=== PATIENT | female | born 1960 | race Caucasian/White ===

== ENCOUNTER 2017-12-15 10:55 | Emergency (ER) | payer SELFPAY ==
[2017-12-15] MEDS ORDERED: LIORESAL PO ONE (13:14)
[2017-12-15] MEDS ORDERED: COZAAR PO ONE (13:15)
[2017-12-15 13:52] LABS: Basophils # (Auto) 0.1 K/mm3 (0.0-0.1); Basophils % (Auto) 0.5 % (0.0-1.8); Eosinophils % (Auto) 0.1 % (0.0-4.3); Hematocrit 38.3 % (30.3-42.9); Hemoglobin 13.1 gm/dl (10.1-14.3); Lymphocytes # (Auto) 1.6 K/mm3 (1.2-5.4); Lymphocytes % (Auto) 14.2 % (13.4-35.0); Mean Corpuscular HGB Conc 34 % (30-34); Mean Corpuscular Hemoglobin 27 pg (28-32); Mean Corpuscular Volume 80 fl (79-97); Monocytes # (Auto) 0.5 K/mm3 (0.0-0.8); Monocytes % (Auto) 4.7 % (0.0-7.3); Platelet Count 236 K/mm3 (140-440); Red Blood Count 4.78 M/mm3 (3.65-5.03); Red Cell Distribution Width 14.7 % (13.2-15.2)
[2017-12-15 14:00] LABS: Alanine Aminotransferase 11 units/L (7-56); Albumin 4.2 g/dL (3.9-5); BUN/Creatinine Ratio 20; Blood Urea Nitrogen 10 mg/dL (7-17); Calcium 9.9 mg/dL (8.4-10.2); Hemolysis Index 10
[2017-12-15] MEDS ORDERED: K-DUR PO ONE (14:08)
--- NOTE | 2017-12-15 15:21 | Emergency Department Report ---
HPI - General Chief Complaint: Pain General Time Seen by Provider: 12/15/17 12:52 - HPI HPI: 57-year-old [place] female presents to the emergency department with her daughter, whom she lives with, with a complaint of acute on chronic muscle spasms and contractures. The patient moved here from [place] a few months ago, in July, and therefore has been away from her primary care physician's and does not currently have any insurance. The patient has been being worked up over the past 1-2 years regarding some type of progressively worsening neurological and/or musculoskeletal disorder. They say that one of the possible diagnosis is multiple sclerosis. The patient also had 2 different nerve conduction studies done in [place] prior to moving to the [facility] that she said showed appropriate conduction. The patient also has a history of hypertension. The patient is nonambulatory at baseline and has been this way over the past year. She usually is on 2 different blood pressure medications and has been out of these meds and took the last of these 2 medications today, losartan and atenolol. The main reason for the patient's visit today is that she is also out of her baclofen, Neurontin and clonazepam. Without these medications, the patient gets very stiff, has muscle spasms and contractures, and it also keeps her from being able to eat and help to take care of herself. She denies any fever, chest pain, shortness of breath. ED Past Medical Hx - Past Medical History Previous Medical History?: Yes Hx Hypertension: Yes Additional medical history: MS - Surgical History Past Surgical History?: No - Social History Smoking Status: Never Smoker - Medications Home Medications: Home Medications Medication Instructions Recorded Confirmed Last Taken Type Atenolol [Tenormin] 25 mg PO DAILY #30 tab 12/15/17 Unknown Rx Baclofen 20 mg PO QHS #20 tablet 12/15/17 Unknown Rx Baclofen [Lioresal] 10 mg PO BID #40 tab 12/15/17 Unknown Rx Losartan [Cozaar] 50 mg PO BID #30 tablet 12/15/17 Unknown Rx clonazePAM [KlonoPIN] 0.5 mg PO BID PRN #40 tab 12/15/17 Unknown Rx ED Review of Systems ROS: Stated complaint: MUSCLE SPASMS Other details as noted in HPI Comment: All other systems reviewed and negative Constitutional: denies: chills, fever Eyes: denies: eye pain, eye discharge, vision change ENT: denies: ear pain, throat pain Respiratory: denies: cough, shortness of breath, wheezing Cardiovascular: denies: chest pain, palpitations Gastrointestinal: denies: abdominal pain, nausea, diarrhea Genitourinary: denies: urgency, dysuria, discharge Musculoskeletal: myalgia. denies: joint swelling Skin: denies: rash, lesions Neurological: denies: headache, confusion Physical Exam - Physical Exam Vital Signs: Vital Signs 12/15/17 11:30 Temperature 97.5 F L Pulse Rate 87 Blood Pressure 132/76 O2 Sat by Pulse 96 Oximetry Physical Exam: GENERAL: The patient is well-developed well-nourished. HENT: Normocephalic. Atraumatic. Patient has moist mucous membranes. EYES: Extraocular motions are intact. Pupils equal reactive to light bilaterally. NECK: Supple. Trachea is midline. CHEST/LUNGS: Clear to auscultation. There is no respiratory distress noted. HEART/CARDIOVASCULAR: Regular. There is no tachycardia. There is no murmur. ABDOMEN: Abdomen is soft, nontender. Patient has normal bowel sounds. There is no abdominal distention. SKIN: Skin is warm and dry. NEURO: The patient is awake, alert, and oriented. The patient is cooperative. There is chronic lower extremity weakness as the patient is chronically nonambulatory. The patient has normal speech. No facial asymmetry. No upper extremity drift. MUSCULOSKELETAL: There is no tenderness. Patient has some flexion and contractures of the bilateral feet. There is no evidence of acute injury. ED Course Vital Signs 12/15/17 11:30 Temperature 97.5 F L Pulse Rate 87 Blood Pressure 132/76 O2 Sat by Pulse 96 Oximetry ED Medical Decision Making - Lab Data Result diagrams: 12/15/17 13:26 12/15/17 13:26 - Medical Decision Making Patient has a 1-2 year history of some type of progressively worsening condition causing weakness and it also appears to cause chronic muscle spasms and contractures. The patient says that she has been being worked up for multiple sclerosis but the workup has not been completed and she moved from [place] to [place]. She had insurance and [place] but does not have it yet here and therefore does not have a primary care physician or neurologist. None of the weakness is new and there are no new deficits. The main reason for her presenting to the emergency department is because of muscle spasms and contractures. In [place], the patient is on baclofen and clonazepam and sometimes gabapentin for these issues. When she is on the medication she is much more functional and without the medication sometimes the spasms and contractures can also involve the hands and make it difficult for her to help with her activities of daily living. She is not at this point when she arrives to the emergency department but does have some issues regarding her feet which do appear flexed and slightly contracted. To me, her mental status appears appropriate and she is answering questions appropriately without any slurred speech. Patient's labs were unremarkable including no signs of any infection, electrolyte abnormalities other than mild hypokalemia, no renal insufficiency or glucose abnormalities and she has a normal CK level. She was given a dose of baclofen and clonazepam and reevaluated about one hour later. The patient appears to have some improvement in the spasms and contractures of her feet and says she is feeling much better. Her daughter, who is bedside, also says that she appears to show improved movement. Patient's blood pressure has been reasonable in the emergency department but the patient did take her blood pressure medications, the last ones that she had available, this morning prior to presentation. I have agreed to write a few weeks worth of a prescription for the baclofen, clonazepam and her blood pressure medications. However with the patient and the daughter understand my hesitancy to restart all of these medications at once as it can cause some sedation and possible hypotension. They have agreed to buy a blood pressure cuff and keep a blood pressure log. They will be vigilant and monitoring her for any signs of increased sedation from these medications. However the patient did have baclofen and clonazepam here and tolerated it very well without any signs of any sedation or respiratory depression. The patient was given multiple primary care doctor clinics for follow-up. They have been encouraged to return to the emergency department immediately with any worsening of her symptoms or any acute distress. - Differential Diagnosis MS, ALS, myasthenia gravis, electrolyte abnormalities, hypoglycemia Critical Care Time: No Critical care attestation.: If time is entered above; I have spent that time in minutes in the direct care of this critically ill patient, excluding procedure time. ED Disposition Clinical Impression: Muscle spasm, Stiff joint, History of hypertension Disposition: DC-01 TO HOME OR SELFCARE Is pt being admited?: No Condition: Stable Instructions: Hypertension (ED), Muscle Spasm (ED) Additional Instructions: Please follow up with a primary care physician as soon as possible. I have also given a referral for a local neurologist, Dr. Gomez and, to follow up regarding your potential history of multiple sclerosis and/or for a neurological evaluation. Return to the emergency Department with any worsening of your symptoms or any acute distress. I have given you a prescription refill for your blood pressure medications. Keep a blood pressure log and buy a blood pressure cuff. Try and stay away from foods that are high in salt and caffeinated products to help with her blood pressure. The baclofen and clonazepam that you take for your muscle spasms and stiffness can be sedating and therefore you must be cautious when taking them as they can cause respiratory depression. You have been prescribed a medication that is sedating and therefore should not be taken prior to driving, working, and responsible for children and in no way should be mixed with alcohol of any quantity. Return to the emergency Department with any worsening of your symptoms or any acute distress. Prescriptions: Baclofen 20 mg PO QHS #20 tablet Atenolol [Tenormin] 25 mg PO DAILY #30 tab Baclofen [Lioresal] 10 mg PO BID #40 tab clonazePAM [KlonoPIN] 0.5 mg PO BID PRN #40 tab PRN Reason: Spasms Losartan [Cozaar] 50 mg PO BID #30 tablet Referrals: PRIMARY CARE, [Primary Care Provider] - 3-5 Days MAYRA GOMEZ MD [Staff Physician] - 3-5 Days [facility] [Outside] - 3-[address] [facility] [Outside] - 3-5 Days Time of Disposition: 15:28
[2017-12-15 16:34] VITALS: BP 107/74
== END 2017-12-15 16:32 | disposition home or self-care (01) ==
LOC: ED 10:55
DX: M62.838 Other muscle spasm (principal); M25.60 Stiffness of unspecified joint, not elsewhere classified; I10 Essential (primary) hypertension; G35 Multiple sclerosis
CPT/HCPCS: 36415; 80053; 82550; 83735; 85025; 99284

== ENCOUNTER 2019-05-03 13:36 | Emergency (ER) | payer MEDICARE, OTHER ==
--- NOTE | 2019-05-03 15:09 | Emergency Department Report ---
ED General Adult HPI - General Chief complaint: Weakness Stated complaint: FAILURE TO THRIVE Time Seen by Provider: 05/03/19 14:26 Source: EMS Mode of arrival: Stretcher Limitations: Language Barrier - History of Present Illness Initial comments: She presents to the ED via EMS as an APS case. The patient's mother has concern that the granddaughter is not taking care for well at home and contacted Adult Protective Services for further evaluation. The patient is not fluent Danish and a tag meter operator was used. She has no complaints and denies chest pain, shortness breath, or headache. Severity scale (0 -10): 0 Improves with: none Worsens with: none Associated Symptoms: denies other symptoms Treatments Prior to Arrival: none - Related Data Previous Rx's Medication Instructions Recorded Last Taken Type Atenolol [Tenormin] 25 mg PO DAILY #30 tab 12/15/17 Unknown Rx Baclofen 20 mg PO QHS #20 tablet 12/15/17 Unknown Rx Baclofen [Lioresal] 10 mg PO BID #40 tab 12/15/17 Unknown Rx Losartan [Cozaar] 50 mg PO BID #30 tablet 12/15/17 Unknown Rx clonazePAM [KlonoPIN] 0.5 mg PO BID PRN #40 tab 12/15/17 Unknown Rx Allergies Allergy/AdvReac Type Severity Reaction Status Date / Time No Known Allergies Allergy Unverified 12/15/17 11:51 ED Review of Systems ROS: Stated complaint: FAILURE TO THRIVE Other details as noted in HPI Comment: All other systems reviewed and negative Constitutional: denies: chills, fever Eyes: denies: eye pain, eye discharge, vision change ENT: denies: ear pain, throat pain Respiratory: denies: cough, shortness of breath, wheezing Cardiovascular: denies: chest pain, palpitations Endocrine: no symptoms reported Gastrointestinal: denies: abdominal pain, nausea, diarrhea Genitourinary: denies: urgency, dysuria, discharge Musculoskeletal: denies: back pain, joint swelling, arthralgia Skin: denies: rash, lesions Neurological: denies: headache, weakness, paresthesias Psychiatric: denies: anxiety, depression Hematological/Lymphatic: denies: easy bleeding, easy bruising ED Past Medical Hx - Past Medical History Previous Medical History?: Yes Hx Hypertension: Yes Additional medical history: MS - Surgical History Additional Surgical History: Unknown - Social History Smoking Status: Unknown if ever smoked - Medications Home Medications: Home Medications Medication Instructions Recorded Confirmed Last Taken Type Atenolol [Tenormin] 25 mg PO DAILY #30 tab 12/15/17 Unknown Rx Baclofen 20 mg PO QHS #20 tablet 12/15/17 Unknown Rx Baclofen [Lioresal] 10 mg PO BID #40 tab 12/15/17 Unknown Rx Losartan [Cozaar] 50 mg PO BID #30 tablet 12/15/17 Unknown Rx clonazePAM [KlonoPIN] 0.5 mg PO BID PRN #40 tab 12/15/17 Unknown Rx ED Physical Exam - General Limitations: Language Barrier General appearance: alert, in no apparent distress, other (thin) - Head Head exam: Present: atraumatic, normocephalic - Eye Eye exam: Present: normal appearance - ENT ENT exam: Present: mucous membranes moist - Neck Neck exam: Present: normal inspection - Respiratory Respiratory exam: Present: normal lung sounds bilaterally. Absent: respiratory distress - Cardiovascular Cardiovascular Exam: Present: regular rate, normal rhythm. Absent: systolic murmur, diastolic murmur, rubs, gallop - GI/Abdominal GI/Abdominal exam: Present: soft, normal bowel sounds. Absent: distended, tenderness - Extremities Exam Extremities exam: Present: normal inspection - Back Exam Back exam: Present: normal inspection - Neurological Exam Neurological exam: Present: alert, oriented X3, CN II-XII intact. Absent: motor sensory deficit - Psychiatric Psychiatric exam: Present: normal affect, normal mood - Skin Skin exam: Present: warm, dry, intact, normal color. Absent: rash ED Course Vital Signs 05/03/19 05/03/19 05/03/19 13:59 14:03 14:05 Temperature 98.7 F Pulse Rate 152 H 105 H Respiratory 19 Rate Blood Pressure Blood Pressure 198/131 86/56 [Left] O2 Sat by Pulse 99 99 Oximetry 05/03/19 05/03/19 05/03/19 14:15 14:26 14:27 Temperature Pulse Rate 90 Respiratory 16 16 Rate Blood Pressure 109/74 Blood Pressure 109/74 [Left] O2 Sat by Pulse 98 97 98 Oximetry 05/03/19 05/03/19 05/03/19 14:30 14:46 15:00 Temperature Pulse Rate 83 79 79 Respiratory 15 15 17 Rate Blood Pressure 90/58 92/56 113/69 Blood Pressure [Left] O2 Sat by Pulse 98 98 97 Oximetry 05/03/19 05/03/19 05/03/19 15:15 15:30 15:45 Temperature Pulse Rate 79 81 78 Respiratory 20 12 18 Rate Blood Pressure 104/73 102/78 133/83 Blood Pressure [Left] O2 Sat by Pulse 97 99 100 Oximetry 05/03/19 05/03/19 05/03/19 16:00 16:15 16:30 Temperature Pulse Rate 89 70 70 Respiratory 20 16 17 Rate Blood Pressure 177/94 119/78 154/86 Blood Pressure [Left] O2 Sat by Pulse 99 98 99 Oximetry 05/03/19 05/03/19 05/03/19 16:45 17:00 17:15 Temperature Pulse Rate 66 79 64 Respiratory 15 16 15 Rate Blood Pressure 167/91 159/95 161/79 Blood Pressure [Left] O2 Sat by Pulse 100 99 99 Oximetry 05/03/19 05/03/19 05/03/19 17:30 17:45 18:00 Temperature Pulse Rate 66 71 78 Respiratory 10 L 10 L 20 Rate Blood Pressure 161/79 140/87 140/87 Blood Pressure [Left] O2 Sat by Pulse 98 100 98 Oximetry 05/03/19 05/03/19 18:15 18:30 Temperature Pulse Rate 77 72 Respiratory 20 16 Rate Blood Pressure 147/79 130/84 Blood Pressure [Left] O2 Sat by Pulse 99 100 Oximetry ED Medical Decision Making - Lab Data Result diagrams: 05/03/19 15:05 05/03/19 15:05 Lab Results 05/03/19 05/03/19 05/03/19 Range/Units 15:05 15:05 17:00 WBC 13.3 H (4.5-11.0) K/mm3 RBC 4.64 (3.65-5.03) M/mm3 Hgb 12.9 (10.1-14.3) gm/dl Hct 38.0 (30.3-42.9) % MCV 82 (79-97) fl MCH 28 (28-32) pg MCHC 34 (30-34) % RDW 14.8 (13.2-15.2) % Plt Count 246 (140-440) K/mm3 Baso % (Auto) Sewer Line Repairer Add Manual Diff Complete Total Counted 100 Seg Neutrophils % Sewer Line Repairer Seg Neuts % (Manual) 75.0 H (40.0-70.0) % Band Neutrophils % 0 % Lymphocytes % (Manual) 8.0 L (13.4-35.0) % Reactive Lymphs % (Man) 0 % Monocytes % (Manual) 10.0 H (0.0-7.3) % Eosinophils % (Manual) 7.0 H (0.0-4.3) % Basophils % (Manual) 0 (0.0-1.8) % Metamyelocytes % 0 % Myelocytes % 0 % Promyelocytes % 0 % Blast Cells % 0 % Nucleated RBC % Not Reportable Seg Neutrophils # Man 10.0 H (1.8-7.7) K/mm3 Band Neutrophils # 0.0 K/mm3 Lymphocytes # (Manual) 1.1 L (1.2-5.4) K/mm3 Abs React Lymphs (Man) 0.0 K/mm3 Monocytes # (Manual) 1.3 H (0.0-0.8) K/mm3 Eosinophils # (Manual) 0.9 H (0.0-0.4) K/mm3 Basophils # (Manual) 0.0 (0.0-0.1) K/mm3 Metamyelocytes # 0.0 K/mm3 Myelocytes # 0.0 K/mm3 Promyelocytes # 0.0 K/mm3 Blast Cells # 0.0 K/mm3 WBC Morphology Not Reportable Hypersegmented Neuts Not Reportable Hyposegmented Neuts Not Reportable Hypogranular Neuts Not Reportable Smudge Cells Not Reportable Toxic Granulation Not Reportable Toxic Vacuolation Not Reportable Dohle Bodies Not Reportable Pelger-Huet Anomaly Not Reportable Leroy Rods Not Reportable Platelet Estimate Appears normal Clumped Platelets Not Reportable Plt Clumps, EDTA Not Reportable Large Platelets Not Reportable Giant Platelets Not Reportable Platelet Satelliting Not Reportable Plt Morphology Comment Not Reportable RBC Morphology Not Reportable Dimorphic RBCs Not Reportable Polychromasia Not Reportable Hypochromasia Not Reportable Poikilocytosis 1+ Anisocytosis 1+ Microcytosis Not Reportable Macrocytosis Not Reportable Spherocytes Not Reportable Pappenheimer Bodies Not Reportable Sickle Cells Not Reportable Target Cells Not Reportable Tear Drop Cells Not Reportable Ovalocytes Not Reportable Helmet Cells Not Reportable Corbin-Twilight Bodies Not Reportable [place] Rings Not Reportable [place] Cells Not Reportable Bite Cells Not Reportable Crenated Cell Not Reportable Elliptocytes Not Reportable Acanthocytes (Spur) Not Reportable Rouleaux Not Reportable Hemoglobin C Crystals Not Reportable Schistocytes Not Reportable Malaria parasites Not Reportable Jasper Bodies Not Reportable Hem Pathologist Commnt No Sodium 144 (137-145) mmol/L Potassium 3.4 L (3.6-5.0) mmol/L Chloride 103.7 (98-107) mmol/L Carbon Dioxide 27 (22-30) mmol/L Anion Gap 17 mmol/L BUN 16 (7-17) mg/dL Creatinine 0.5 L (0.7-1.2) mg/dL Estimated GFR > 60 ml/min BUN/Creatinine Ratio 32 % Glucose 139 H (65-100) mg/dL Calcium 10.0 (8.4-10.2) mg/dL Total Bilirubin 0.40 (0.1-1.2) mg/dL AST 19 (5-40) units/L ALT 8 (7-56) units/L Alkaline Phosphatase 66 (35-129) units/L Total Protein 7.6 (6.3-8.2) g/dL Albumin 4.0 (3.9-5) g/dL Albumin/Globulin Ratio 1.1 % Urine Color Yellow (Yellow) Urine Turbidity Clear (Clear) Urine pH 5.0 (5.0-7.0) Ur Specific Lynn 1.017 (1.003-1.030) Urine Protein 30 mg/dl (Negative) mg/dL Urine Glucose (UA) 50 (Negative) mg/dL Urine Ketones Tr (Negative) mg/dL Urine Blood Sm (Negative) Urine Nitrite Neg (Negative) Urine Bilirubin Neg (Negative) Urine Urobilinogen 2.0 (<2.0) mg/dL Ur Leukocyte Esterase Neg (Negative) Urine WBC (Auto) 3.0 (0.0-6.0) /HPF Urine RBC (Auto) 1.0 (0.0-6.0) /HPF U Epithel Cells (Auto) 1.0 (0-13.0) /HPF Urine Mucus 1+ /HPF - Radiology Data Radiology results: report reviewed Referring Physician: JEFF MAGDALENO Patient Name: JEEVAN CORNEJO Date of : 1960 Sex: Female Report Date: 2019-05-03 Report Status: Finalized [facility] [address] [place] [address] XRay Report Signed Patient: JEEVAN GARLAND MR#: [id number] : 1960 Acct:[id number] Age/Sex: 59 / F ADM Date: 05/03/19 Loc: ED Attending Dr: Ordering Physician: JEFF MAGDALENO MD Date of Service: 05/03/19 Procedure(s): XR chest 1V ap Accession Number(s): [id number] cc: JEFF MAGDALENO MD Fluoro Time In Minutes: CHEST 1 VIEW 05/03/2019 4:44 PM INDICATION / CLINICAL INFORMATION: elevated white count. COMPARISON: None available. FINDINGS: SUPPORT DEVICES: None. HEART / MEDIASTINUM: No significant abnormality. LUNGS / PLEURA: No significant pulmonary or pleural abnormality. No pneumothorax. ADDITIONAL FINDINGS: No significant additional findings. IMPRESSION: 1. No acute findings. Signer Name: Leon Maldonado MD Signed: 05/03/2019 5:38 PM Workstation Name: [id number] Transcribed By: TL Dictated By: Leon Maldonado MD Electronically Authenticated By: Leon Maldonado MD Signed Date/Time: 05/03/191737 DD/ 37 TD/TT: - Medical Decision Making Management evaluated the patient and felt that she could go home with home health care referral The patient's daughter who is Mrs. Knight and she states that she is no longer able to care for her mother and would like help Patient will remain in the ED for further case management assistance Critical care attestation.: If time is entered above; I have spent that time in minutes in the direct care of this critically ill patient, excluding procedure time. ED Disposition Clinical Impression: Fatigue Disposition: DC/TX-70 ANOTHER TYPE HLTHCARE Is pt being admited?: No Does the pt Need Aspirin: No Condition: Stable [facility] [Primary Care Provider] - 3-5 Days
[2019-05-03 15:20] LABS: Hemoglobin 12.9 gm/dl (10.1-14.3); Mean Corpuscular HGB Conc 34 % (30-34); Mean Corpuscular Volume 82 fl (79-97); Platelet Count 246 K/mm3 (140-440); Red Blood Count 4.64 M/mm3 (3.65-5.03); Red Cell Distribution Width 14.8 % (13.2-15.2)
[2019-05-03 15:54] LABS: Alanine Aminotransferase 8 units/L (7-56); BUN/Creatinine Ratio 32; Blood Urea Nitrogen 16 mg/dL (7-17); Hemolysis Index 2
[2019-05-03 16:18] LABS: Anisocytosis 1+; Basophils % (Manual) 0 % (0.0-1.8); Poikilocytosis 1+; Total Cells Counted 100
--- NOTE | 2019-05-03 17:43 | XRay Report ---
CHEST 1 VIEW 05/03/2019 4:44 PM INDICATION / CLINICAL INFORMATION: elevated white count. COMPARISON: None available. FINDINGS: SUPPORT DEVICES: None. HEART / MEDIASTINUM: No significant abnormality. LUNGS / PLEURA: No significant pulmonary or pleural abnormality. No pneumothorax. ADDITIONAL FINDINGS: No significant additional findings. IMPRESSION: 1. No acute findings. Signer Name: Leon Maldonado MD Signed: 05/03/2019 5:38 PM Workstation Name: [id number]
[2019-05-03 19:35] LABS: Bilirubin,Urine NEG (Negative); Blood,Urine SM (Negative); Color,Urine Yellow (Yellow); Mucus,Urine 1+ /HPF
[2019-05-05 13:15] VITALS: BP 170/80
== END 2019-05-05 17:15 | disposition other institution (70) ==
LOC: EEVIPCON 13:36 → ED 13:36
DX: R53.83 Other fatigue (principal); I10 Essential (primary) hypertension; G35 Multiple sclerosis; Z79.899 Other long term (current) drug therapy
CPT/HCPCS: 36415; 71045; 80053; 81001; 85007; 85025

== ENCOUNTER 2019-08-17 13:24 | Inpatient (IN) | payer MEDICARE ==
[2019-08-17] MEDS ORDERED: SODIUM CHLORIDE 0.9% 1000 ML IV SOLN IV ONE (15:12)
--- NOTE | 2019-08-17 15:17 | Emergency Department Report ---
ED General Adult HPI - General Chief complaint: Weakness Stated complaint: SICKNESS/BODY PAIN Time Seen by Provider: 08/17/19 14:48 Source: patient, family, RN notes reviewed, old records reviewed Mode of arrival: Stretcher Limitations: Language Barrier - History of Present Illness Initial comments: This is a 59-year-old patient. This patient is not known to this provider previously. The patient indicated that she would like her daughter to translate for her. Patient is chronically bedbound, with reported chronic bilateral lower extremity weakness and contractures, and intermittent spasms 4 years. Apparently while in [place] she had muscle conduction studies, uncertain what the results were. She may have a history of multiple sclerosis, but as per her daughter, not certain that this is a formal diagnosis. She is brought to the hospital with daughter for weakness and worsening trembling. There are resolved facial spasms as per the daughter, the patient is having predominantly right lower extremity spasms. The patient is currently awake, and denies physical pain. She cannot describe exacerbating or relieving factors. The patient is currently on home hospice, and after extensive discussion with daughter, goals of care, and advanced directives are not established at this time. There is no private neurologist. Outpatient physician is Dr Driver -: Gradual, year(s) (tremors for years) Location: face, right, lower extremity Consistency: intermittent Improves with: none Worsens with: none - Related Data Home Medications Medication Instructions Recorded Confirmed Last Taken clonazePAM [KlonoPIN] 0.5 mg PO BID 05/04/19 05/04/19 08/16/19 Baclofen 20 mg PO QDAY 08/17/19 08/16/19 LORazepam [Lorazepam] 1 mg PO QDAY 08/17/19 08/17/19 08/16/19 Previous Rx's Medication Instructions Recorded Last Taken Type Atenolol [Tenormin] 25 mg PO DAILY #30 tab 12/15/17 08/16/19 Rx Baclofen [Lioresal] 10 mg PO BID #40 tab 12/15/17 08/16/19 Rx Allergies Allergy/AdvReac Type Severity Reaction Status Date / Time No Known Allergies Allergy Verified 08/17/19 14:19 ED Review of Systems ROS: Stated complaint: SICKNESS/BODY PAIN Other details as noted in HPI Comment: ros per family Constitutional: fever, malaise, weakness Respiratory: denies: cough Cardiovascular: denies: syncope Gastrointestinal: denies: vomiting Genitourinary: denies: dysuria Musculoskeletal: denies: back pain Neurological: weakness Psychiatric: anxiety Hematological/Lymphatic: denies: easy bleeding ED Past Medical Hx - Past Medical History Previous Medical History?: Yes Hx Hypertension: Yes Additional medical history: MS - Surgical History Past Surgical History?: Yes Additional Surgical History: Unknown - Social History Smoking Status: Never Smoker Substance Use Type: None - Medications Home Medications: Home Medications Medication Instructions Recorded Confirmed Last Taken Type Atenolol [Tenormin] 25 mg PO DAILY #30 tab 12/15/17 05/04/19 08/16/19 Rx Baclofen [Lioresal] 10 mg PO BID #40 tab 12/15/17 05/04/19 08/16/19 Rx clonazePAM [KlonoPIN] 0.5 mg PO BID 05/04/19 05/04/19 08/16/19 History Baclofen 20 mg PO QDAY 08/17/19 08/16/19 History LORazepam [Lorazepam] 1 mg PO QDAY 08/17/19 08/17/19 08/16/19 History ED Physical Exam - General Limitations: Language Barrier, Physical Limitation General appearance: alert, anxious, in distress - Head Head exam: Present: atraumatic, normocephalic - Eye Eye exam: Present: normal appearance, EOMI - ENT ENT exam: Present: mucous membranes dry, normal external ear exam - Neck Neck exam: Present: normal inspection, full ROM. Absent: tenderness, meningismus - Respiratory Respiratory exam: Present: decreased breath sounds. Absent: respiratory distress - Cardiovascular Cardiovascular Exam: Present: normal rhythm, tachycardia, normal heart sounds. Absent: systolic murmur, diastolic murmur, rubs, gallop - GI/Abdominal GI/Abdominal exam: Present: soft. Absent: distended, tenderness, guarding, rebound, rigid, pulsatile mass - Rectal Rectal exam: Present: normal inspection, other (chaperoned by jared Daniel) - Extremities Exam Extremities exam: Present: normal inspection, other (contractures noted in the bilateral lower extremities. The pelvis is stable. There is no long bony tenderness. Muscular compartments are soft.) - Back Exam Back exam: Present: normal inspection. Absent: tenderness, CVA tenderness (R), CVA tenderness (L), paraspinal tenderness, vertebral tenderness - Neurological Exam Neurological exam: Present: alert, oriented X3, other (is no facial droop. The tongue is midline. The extraocular movements are intact bilaterally. There is 5 out of 5 strength bilateral upper extremities, patient having tremors and lo wer extremities. Sensation is intact to light touch in 4 extremities.) - Psychiatric Psychiatric exam: Present: anxious - Skin Skin exam: Present: warm ED Course Vital Signs 08/17/19 08/17/19 08/17/19 14:19 14:23 15:45 Temperature 98 F 102.8 F H Pulse Rate 115 H 89 65 Respiratory 16 12 22 Rate Blood Pressure 135/87 Blood Pressure 120/80 [Right] O2 Sat by Pulse 96 100 Oximetry 08/17/19 08/17/19 08/17/19 16:02 16:15 17:42 Temperature Pulse Rate 101 H Respiratory 24 21 Rate Blood Pressure Blood Pressure [Right] O2 Sat by Pulse 86 Oximetry 08/17/19 08/17/19 08/17/19 17:46 18:00 18:16 Temperature Pulse Rate Respiratory Rate Blood Pressure 89/49 89/49 89/49 Blood Pressure [Right] O2 Sat by Pulse 100 86 100 Oximetry 08/17/19 08/17/19 18:30 19:33 Temperature Pulse Rate 50 L Respiratory 14 Rate Blood Pressure 89/49 Blood Pressure 79/22 [Right] O2 Sat by Pulse 95 96 Oximetry - Reevaluation(s) Reevaluation #1: 08/17/19 16:00 Differential diagnosis, including not limited to: Pneumonia, urinary tract infection, bacteremia, viremia, partial seizure Assessment and plan: 59-year-old female with right lower extremity convulsive activity, chronic as per review of old medical records, with rectal temperature 102.1 degrees, tachycardia, diaphoretic at this time. Uncertain if fever coming from convulsive activity versus infectious etiology. There is no neck pain or neck stiffness, and the patient is alert to name, location, year, and has no meningeal signs, therefore, this is unlikely to be meningitis. Extensive discussion have with family and patient, they are amenable to hospitalization, fluids, antibiotics, and symptom control. Case management consult is requested. Extensive discussion have with family regarding advanced directives and goals of care, currently, advanced directives are not in place, and he does not seem that long-term goals of care her been clarified. We will defer to inpatient team to further clarify this. Reevaluation #2: 08/17/19 17:58 Patient has not had additional convulsive activity. Urinalysis suggestive of urinary tract infection. Yeast infection also suggested. Patient is now awake and alert, and cooperative, and in no acute distress. She indicates that "my feet hurt." In addition, her legs have been straightened out. IV access is established by nursing team, however, secondary to technical reasons, we are not able to obtain laboratory studies at this time. Multiple phlebotomists have attempted, and the indicate that the patient's veins collapse after cannulation, and the not able to obtain laboratory studies. I placed a 20-gauge IV catheter in the right external jugular vein with one attempt with no difficulty, nursing team slowly aspirating blood from catheter to send to the lab. Reevaluation #3: 08/17/19 19:47 There was a prolonged. Of time before disposition as the lab was unable to obtain the patient's laboratory studies. Patient reevaluated multiple times by myself and is now smiling and pleasant, no additional convulsive events noted, and she is talking about her feet at this time. She is not acutely encephalopathic at this time. Blood pressure is reviewed and appreciated, patient is very small and slight stature, this is likely appropriate for her small stature. We will admit the patient for renal insufficiency, convulsive event, and systemic inflammatory response syndrome. Case is presented to nurse practitioner, Keshia Chávez, working with Dr Jacquelyn Gentile, and she accepts the patient to the medical service. Elevated troponin is reviewed and appreciated, this is nonspecific, EKG reviewed and appreciated, this is likely multifactorial, likely secondary to renal insufficiency, and convulsive event. - EJ/Peripheral Line Neck R Time Out Performed: Yes Indications: multiple IV sites needed Skin Cleansed in Sterile Fashion: Yes Size: 20 Dressing Placed: Tegaderm Patient Tolerated Procedure: well ED Medical Decision Making - Lab Data Result diagrams: 08/17/19 18:00 08/17/19 Unknown Vital Signs 08/17/19 14:19 Temperature 98 F Pulse Rate 115 H Respiratory 16 Rate Blood Pressure 135/87 O2 Sat by Pulse 96 Oximetry Lab Results 08/17/19 Range/Units 14:34 POC Glucose 101 (70-105) - EKG Data -: EKG Interpreted by Me EKG shows normal: sinus rhythm Rate: normal - EKG Data When compared to previous EKG there are: previous EKG unavailable 08/17/19 16:00 There is no prior EKG available for comparison. This is a sinus rhythm, 61 beats for minute, normal axis, QTC is within normal limits, there is left ventricular hypertrophy, the EKG is abnormal, there is no endorsement of chest pain, the EKG is not consistent with STEMI - Radiology Data Radiology results: pending, image reviewed Critical care attestation.: If time is entered above; I have spent that time in minutes in the direct care of this critically ill patient, excluding procedure time. ED Disposition Clinical Impression: SIRS (systemic inflammatory response syndrome), ROBB (acute kidney injury), Convulsion Disposition: [id number] OP ADMIT IP TO THIS HOSP Is pt being admited?: Yes Does the pt Need Aspirin: Yes Condition: Fair Referrals: PRIMARY CARE, [Primary Care Provider] - 3-5 Days
[2019-08-17] MEDS ORDERED: levETIRAcetam 500 MG in DEXTROSE 5% IN WATER 100 ML IV ONE (15:30)
[2019-08-17] MEDS: cefTRIAXone/NS 1 GM/50 ML 1 GM/50 ML BAG IV SCH (15:48)
--- NOTE | 2019-08-17 15:56 | Cat Scan Report ---
CT head without contrast HISTORY: convulsion, weak. TECHNIQUE: Axial imaging performed from the skull apex through the skull base without the use of con trast. All CT scans at this location are performed using CT dose reduction for ALARA by means of aut omated exposure control. COMPARISON: None FINDINGS: Parenchyma: No acute intracranial hemorrhage or parenchymal abnormality. There is bifrontal extra-ax ial prominence which demonstrates CSF attenuation. Ventricles: There is mild diffuse brain atrophy with commensurate ventricular enlargement which is l ikely age appropriate. Soft tissues: Soft tissues including the orbits appear normal. Bones: No acute osseous abnormality. Sinuses: Sinuses and mastoid air cells are clear. IMPRESSION: No acute abnormality. Signer Name: Aldo Gregorio MD Signed: 08/17/2019 3:52 PM Workstation Name: [id number]
--- NOTE | 2019-08-17 16:22 | XRay Report ---
CHEST 1 VIEW 08/17/2019 4:04 PM INDICATION / CLINICAL INFORMATION: MAIN: fever sepsis pt presents to ed with complaint of gen weakness. COMPARISON: 05/03/19 FINDINGS: SUPPORT DEVICES: None. HEART / MEDIASTINUM: No significant abnormality. LUNGS / PLEURA: No significant pulmonary or pleural abnormality. No pneumothorax. ADDITIONAL FINDINGS: No significant additional findings. IMPRESSION: 1. No acute findings. No significant change. Signer Name: Jacquelyn Lund MD Signed: 08/17/2019 4:18 PM Workstation Name: [id number]
[2019-08-17 17:35] LABS: Bacteria,Urine 1+ /HPF (Negative); Bilirubin,Urine NEG (Negative); Blood,Urine SM (Negative); Color,Urine Yellow (Yellow); Hyaline Casts,Urine 10 /LPF; Mucus,Urine 2+ /HPF; Sperm,Urine FEW /HPF (NP); Urobilinogen,Urine < 2.0 mg/dL (<2.0)
[2019-08-17] MEDS ORDERED: FLUCONAZOLE 100 MG/10 ML ORAL SYRINGE PO ONE (17:44)
[2019-08-17 18:31] LABS: Hematocrit 38.4 % (30.3-42.9); Hemoglobin 13.3 gm/dl (10.1-14.3); Mean Corpuscular HGB Conc 35 % (30-34); Mean Corpuscular Volume 83 fl (79-97); Platelet Count 240 K/mm3 (140-440); Red Blood Count 4.65 M/mm3 (3.65-5.03); Red Cell Distribution Width 16.3 % (13.2-15.2)
[2019-08-17 18:33] LABS: Albumin 4.4 g/dL (3.9-5); Calcium 9.9 mg/dL (8.4-10.2)
[2019-08-17 18:48] LABS: Chol/HDL Ratio 1.85 %
[2019-08-17] MEDS ORDERED: SODIUM CHLORIDE 0.9% 1000 ML 1,000 ML IV ONE (19:46)
[2019-08-17] MEDS ORDERED: ASPIRIN 81 MG TAB CHEW PO ONE (19:49)
[2019-08-17] MEDS ORDERED: ACETAMINOPHEN 325 MG/10.15 ML ORAL LIQD UNIT DOSE PO ONE (19:50)
[2019-08-17 19:58] LABS: Basophils % (Manual) 0 % (0.0-1.8); Eosinophils % (Manual) 0 % (0.0-4.3); Platelet Clumps 1+; RBC Morphology Normal; Total Cells Counted 100
[2019-08-17] MEDS ORDERED: ONDANSETRON 4 MG/2 ML INJ IV PRN (20:36)
[2019-08-17] MEDS ORDERED: ACETAMINOPHEN 325 MG TAB PO PRN (20:36)
[2019-08-17] MEDS ORDERED: SODIUM CHLORIDE 0.9% 1000 ML 1,000 ML ONE (21:18)
[2019-08-17] MEDS: SODIUM CHLORIDE 0.9% 1000 ML 1,000 ML IV SCH (21:20)
--- NOTE | 2019-08-17 22:09 | History and Physical Report ---
<KRISH FRY - Last Filed: 08/17/19 22:34> History of Present Illness Date of examination: 08/17/19 Date of admission: 08/17/19 19:49 Chief complaint: weakness, and musculofascial chin to the left side of face History of present illness: 59-year-old [place] female with history of chronic debility (bilateral lower extremity contracture), intermittent spasms, hypertension and multiple sclerosis who presents as a [facility] ED with complaints of generalized weakness, left face twitching, and right lower extremity twitching. Pt's primary language is thai and speaks limited Khmer. Pt's daughter is present at the bedside and pt has requested that her daughter translate. Pt complains of left sided facial twitching which has since resolved and right lower extremity twitching. According to the daughter the twitching has worsened over the past few days. Pt has a questionable history of MS. About one year ago pt had muscle conduction studies done at a facility in [place], and the results are uncertain. Neith er the pt or daughter can recall or have medical records with results. Of note pt is currently on hospice. A case management consult has been placed. A review of medical records show that pt was seen in ED on 05/03/19 with complaints of adequate home care. Patient's daughter stated that she is no longer able to care for her mother and would like help. At the time case management evaluated the patient and felt that she could go home with home health care referral. Past History Past Medical History: hypertension, other (multiple sclerosis) Past Surgical History: No surgical history Social history: lives with family (daughter) Family history: no significant family history Medications and Allergies Allergies Allergy/AdvReac Type Severity Reaction Status Date / Time No Known Allergies Allergy Verified 08/17/19 14:19 Home Medications Medication Instructions Recorded Confirmed Last Taken Type Atenolol [Tenormin] 25 mg PO DAILY #30 tab 12/15/17 05/04/19 08/16/19 Rx Baclofen [Lioresal] 10 mg PO BID #40 tab 12/15/17 05/04/19 08/16/19 Rx clonazePAM [KlonoPIN] 0.5 mg PO BID 05/04/19 05/04/19 08/16/19 History Baclofen 20 mg PO QDAY 08/17/19 08/16/19 History LORazepam [Lorazepam] 1 mg PO QDAY 08/17/19 08/17/19 08/16/19 History Active Meds: Active Medications Acetaminophen (Tylenol) 650 mg PO Q4H PRN PRN Reason: Pain MILD(1-3)/Fever >100.5/LOYA Docusate Sodium (Colace) 100 mg PO BID [facility] Heparin Sodium (Porcine) (Heparin) 5,000 unit SUB-Q Q12HR [facility] Ceftriaxone Sodium (Rocephin/Ns 1 Gm/50 Ml) 1 gm in 50 mls @ 100 mls/hr IV Q24H ARIA; Protocol Stop: 08/19/19 16:29 Last Admin: 08/17/19 15:48 Dose: 100 mls/hr Documented by: Sodium Chloride (Nacl 0.9% 1000 Ml) 1,000 mls @ 100 mls/hr IV DIRECT ARIA Last Admin: 08/17/19 21:20 Dose: 100 mls/hr Documented by: Ondansetron HCl (Zofran) 4 mg IV Q8H PRN PRN Reason: Nausea And Vomiting Sodium Chloride (Sodium Chloride Flush Syringe 10 Ml) 10 ml IV BID ARIA Sodium Chloride (Sodium Chloride Flush Syringe 10 Ml) 10 ml IV PRN PRN PRN Reason: LINE FLUSH Review of Systems All systems: negative Constitutional: weakness Neurological: other (sided facial twitching and right lower extremity twitching) Exam - Physical Exam Narrative exam: Physical exam General appearance: Present: No acute distress, alert and oriented 3, frail, adult female - EENT Eyes: Present: PERRL, EOM intact ENT: hearing intact, normal dentition - Neck Neck: Present: supple, normal ROM - Respiratory Respiratory effort: Non-labored Respiratory: Diminished bases - Cardiovascular Heart rate: 61 (bpm) Rhythm: Sinus rhythm Heart Sounds: Present: S1 & S2. Absent: rub, click - Extremities Extremities: no ischemia, pulses intact, contracture of bilateral lower extremity, occasional tremors to bilateral lower extremity - Peripheral Assessment Peripheral Pulses: within normal limits - Abdominal General gastrointestinal: soft, non-tender, normal bowel sounds - Integumentary Integumentary: Present: warm, dry - Musculoskeletal Musculoskeletal: Generalized weakness -Neurological Neurological: CN II-XII intact - Psychiatric Psychiatric: cooperative - Constitutional Vitals: Temp Pulse Resp BP Pulse Ox 102.8 F H 52 L 15 92/63 98 08/17/19 14:23 08/17/19 21:03 08/17/19 21:03 08/17/19 21:03 08/17/19 21:03 Results - Labs CBC & Chem 7: 08/17/19 18:00 08/17/19 Unknown Labs: Laboratory Last Values WBC 21.1 K/mm3 (4.5-11.0) H 08/17/19 18:00 RBC 4.65 M/mm3 (3.65-5.03) 08/17/19 18:00 Hgb 13.3 gm/dl (10.1-14.3) 08/17/19 18:00 Hct 38.4 % (30.3-42.9) 08/17/19 18:00 MCV 83 fl (79-97) 08/17/19 18:00 MCH 29 pg (28-32) 08/17/19 18:00 MCHC 35 % (30-34) H 08/17/19 18:00 RDW 16.3 % (13.2-15.2) H 08/17/19 18:00 Plt Count 240 K/mm3 (140-440) 08/17/19 18:00 Lymph % (Auto) Optometrist 08/17/19 18:00 [place] % (Auto) Optometrist 08/17/19 18:00 Eos % (Auto) Optometrist 08/17/19 18:00 Baso % (Auto) Optometrist 08/17/19 18:00 Lymph # Optometrist 08/17/19 18:00 [place] # Optometrist 08/17/19 18:00 Eos # Optometrist 08/17/19 18:00 Baso # Optometrist 08/17/19 18:00 Add Manual Diff Complete 08/17/19 18:00 Total Counted 100 08/17/19 18:00 Seg Neutrophils % Optometrist 08/17/19 18:00 Seg Neuts % (Manual) 87.0 % (40.0-70.0) H 08/17/19 18:00 Band Neutrophils % 0 % 08/17/19 18:00 Lymphocytes % (Manual) 10.0 % (13.4-35.0) L 08/17/19 18:00 Reactive Lymphs % (Man) 0 % 08/17/19 18:00 Monocytes % (Manual) 3.0 % (0.0-7.3) 08/17/19 18:00 Eosinophils % (Manual) 0 % (0.0-4.3) 08/17/19 18:00 Basophils % (Manual) 0 % (0.0-1.8) 08/17/19 18:00 Metamyelocytes % 0 % 08/17/19 18:00 Myelocytes % 0 % 08/17/19 18:00 Promyelocytes % 0 % 08/17/19 18:00 Blast Cells % 0 % 08/17/19 18:00 Nucleated RBC % Not Reportable 08/17/19 18:00 Seg Neutrophils # Optometrist 08/17/19 18:00 Seg Neutrophils # Man 18.4 K/mm3 (1.8-7.7) H 08/17/19 18:00 Band Neutrophils # 0.0 K/mm3 08/17/19 18:00 Lymphocytes # (Manual) 2.1 K/mm3 (1.2-5.4) 08/17/19 18:00 Abs React Lymphs (Man) 0.0 K/mm3 08/17/19 18:00 Monocytes # (Manual) 0.6 K/mm3 (0.0-0.8) 08/17/19 18:00 Eosinophils # (Manual) 0.0 K/mm3 (0.0-0.4) 08/17/19 18:00 Basophils # (Manual) 0.0 K/mm3 (0.0-0.1) 08/17/19 18:00 Metamyelocytes # 0.0 K/mm3 08/17/19 18:00 Myelocytes # 0.0 K/mm3 08/17/19 18:00 Promyelocytes # 0.0 K/mm3 08/17/19 18:00 Blast Cells # 0.0 K/mm3 08/17/19 18:00 WBC Morphology Not Reportable 08/17/19 18:00 Hypersegmented Neuts Not Reportable 08/17/19 18:00 Hyposegmented Neuts Not Reportable 08/17/19 18:00 Hypogranular Neuts Not Reportable 08/17/19 18:00 Smudge Cells Not Reportable 08/17/19 18:00 Toxic Granulation Not Reportable 08/17/19 18:00 Toxic Vacuolation Not Reportable 08/17/19 18:00 Dohle Bodies Not Reportable 08/17/19 18:00 Pelger-Huet Anomaly Not Reportable 08/17/19 18:00 Leroy Rods Not Reportable 08/17/19 18:00 Platelet Estimate Not Reportable 08/17/19 18:00 Clumped Platelets 1+ 08/17/19 18:00 Plt Clumps, EDTA Not Reportable 08/17/19 18:00 Large Platelets Not Reportable 08/17/19 18:00 Giant Platelets Not Reportable 08/17/19 18:00 Platelet Satelliting Not Reportable 08/17/19 18:00 Plt Morphology Comment Not Reportable 08/17/19 18:00 RBC Morphology Normal 08/17/19 18:00 Dimorphic RBCs Not Reportable 08/17/19 18:00 Polychromasia Not Reportable 08/17/19 18:00 Hypochromasia Not Reportable 08/17/19 18:00 Poikilocytosis Not Reportable 08/17/19 18:00 Anisocytosis Not Reportable 08/17/19 18:00 Microcytosis Not Reportable 08/17/19 18:00 Macrocytosis Not Reportable 08/17/19 18:00 Spherocytes Not Reportable 08/17/19 18:00 Pappenheimer Bodies Not Reportable 08/17/19 18:00 Sickle Cells Not Reportable 08/17/19 18:00 Target Cells Not Reportable 08/17/19 18:00 Tear Drop Cells Not Reportable 08/17/19 18:00 Ovalocytes Not Reportable 08/17/19 18:00 Helmet Cells Not Reportable 08/17/19 18:00 [place] Bodies Not Reportable 08/17/19 18:00 [place] Rings Not Reportable 08/17/19 18:00 Sarepta Cells Not Reportable 08/17/19 18:00 Bite Cells Not Reportable 08/17/19 18:00 Crenated Cell Not Reportable 08/17/19 18:00 Elliptocytes Not Reportable 08/17/19 18:00 Acanthocytes (Spur) Not Reportable 08/17/19 18:00 Rouleaux Not Reportable 08/17/19 18:00 Hemoglobin C Crystals Not Reportable 08/17/19 18:00 Schistocytes Not Reportable 08/17/19 18:00 Malaria parasites Not Reportable 08/17/19 18:00 [place] Bodies Not Reportable 08/17/19 18:00 Hem Pathologist Commnt No 08/17/19 18:00 APTT 21.9 Sec. (24.2-36.6) L 08/17/19 Unknown Sodium 140 mmol/L (137-145) 08/17/19 Unknown Potassium 5.0 mmol/L (3.6-5.0) 08/17/19 Unknown Chloride 97.4 mmol/L (98-107) L 08/17/19 Unknown Carbon Dioxide 21 mmol/L (22-30) L 08/17/19 Unknown Anion Gap 27 mmol/L 08/17/19 Unknown BUN 74 mg/dL (7-17) H 08/17/19 Unknown Creatinine 1.3 mg/dL (0.7-1.2) H 08/17/19 Unknown Estimated GFR 42 ml/min 08/17/19 Unknown BUN/Creatinine Ratio 57 % 08/17/19 Unknown Glucose 97 mg/dL (65-100) 08/17/19 Unknown POC Glucose 101 (70-105) 08/17/19 14:34 Lactic Acid 1.50 mmol/L (0.7-2.0) 08/17/19 Unknown Calcium 9.9 mg/dL (8.4-10.2) 08/17/19 Unknown Magnesium 2.40 mg/dL (1.7-2.3) H 08/17/19 Unknown Total Bilirubin 0.30 mg/dL (0.1-1.2) 08/17/19 Unknown AST 58 units/L (5-40) H 08/17/19 Unknown ALT 56 units/L (7-56) 08/17/19 Unknown Alkaline Phosphatase 82 units/L (35-129) 08/17/19 Unknown Total Creatine Kinase 297 units/L (30-135) H 08/17/19 Unknown Troponin T 0.030 ng/mL (0.00-0.029) H 08/17/19 Unknown Total Protein 7.3 g/dL (6.3-8.2) 08/17/19 Unknown Albumin 4.4 g/dL (3.9-5) 08/17/19 Unknown Albumin/Globulin Ratio 1.5 % 08/17/19 Unknown Triglycerides 61 mg/dL (2-149) 08/17/19 Unknown Cholesterol 178 mg/dL (50-199) 08/17/19 Unknown LDL Cholesterol Direct 83 mg/dL (50-130) 08/17/19 Unknown HDL Cholesterol 96 mg/dL (40-59) H 08/17/19 Unknown Cholesterol/HDL Ratio 1.85 % 08/17/19 Unknown TSH 0.762 mlU/mL (0.270-4.200) 08/17/19 Unknown Urine Color Yellow (Yellow) 08/17/19 Unknown Urine Turbidity Cloudy (Clear) 08/17/19 Unknown Urine pH 5.0 (5.0-7.0) 08/17/19 Unknown Ur Specific [place] 1.018 (1.003-1.030) 08/17/19 Unknown Urine Protein 100 mg/dl mg/dL (Negative) 08/17/19 Unknown Urine Glucose (UA) 50 mg/dL (Negative) 08/17/19 Unknown Urine Ketones 20 mg/dL (Negative) 08/17/19 Unknown Urine Blood Sm (Negative) 08/17/19 Unknown Urine Nitrite Neg (Negative) 08/17/19 Unknown Urine Bilirubin Neg (Negative) 08/17/19 Unknown Urine Urobilinogen < 2.0 mg/dL (<2.0) 08/17/19 Unknown Ur Leukocyte Esterase Sm (Negative) 08/17/19 Unknown Urine WBC (Auto) 20.0 /HPF (0.0-6.0) H 08/17/19 Unknown Urine RBC (Auto) 12.0 /HPF (0.0-6.0) 08/17/19 Unknown U Epithel Cells (Auto) 1.0 /HPF (0-13.0) 08/17/19 Unknown Urine Bacteria (Auto) 1+ /HPF (Negative) 08/17/19 Unknown Urine WBC Clumps 3+ /HPF 08/17/19 Unknown Hyaline Casts 10 /LPF 08/17/19 Unknown Urine Mucus 2+ /HPF 08/17/19 Unknown Urine Yeast (Budding) 3+ /HPF 08/17/19 Unknown Urine Sperm Few /HPF (TIRE RECAPPING MACHINE OPERATOR) 08/17/19 Unknown Salicylates < 0.3 mg/dL (2.8-20.0) L 08/17/19 Unknown Acetaminophen < 5.0 ug/mL (10.0-30.0) L 08/17/19 Unknown - Imaging and Cardiology Imaging and Cardiology: CT Head: FINDINGS: Parenchyma: No acute intracranial hemorrhage or parenchymal abnormality. There is bifrontal extra-axial prominence which demonstrates CSF attenuation. Ventricles: There is mild diffuse brain atrophy with commensurate ventricular enlargement which is likely age appropriate. Soft tissues: Soft tissues including the orbits appear normal. Bones: No acute osseous abnormality. Sinuses: Sinuses and mastoid air cells are clear. IMPRESSION: No acute abnormality. CXR: FINDINGS: SUPPORT DEVICES: None. HEART / MEDIASTINUM: No significant abnormality. LUNGS / PLEURA: No significant pulmonary or pleural abnormality. No pneumothorax. ADDITIONAL FINDINGS: No significant additional findings. IMPRESSION: 1. No acute findings. No significant change. Assessment and Plan Assessment and plan: 59-year-old Hungarian female with history of chronic debility (bilateral lower extremity contracture), intermittent spasms, hypertension and multiple sclerosis who presents as a [facility] ED with complaints of generalized weakness, left face twitching, and right lower extremity twitching. Sepsis -Leukocytosis at 21.1 -MAXIMUM TEMPERATURE 102.8 -Blood and urine cultures pending -UA positive for UTI -Receiving an IVF and IV ABX -CXR negative -CT head negative -Continue supportive care Urinary tract infection -UA positive for UTI -urine wbc 20 -Urine culture pending -on IV Abx ROBB -Cr on admission 1.3 (trending up from 0.518/03/16) -Hydrate with IVF -Avoid nephrotoxic agents -Renal dose all meds -Nephrology consulted Failure to thrive -BMI 12.5 -Currently on hospice -Case management consult pending Right lower extremity muscular twitching Left sided facial muscular twitching -Hx of MS -Hx intermittent spasms past 4 years -Hold Balcofen d/t renal function -Neurology Consulted Elevated Troponin -0.030 -Will continue to trend -May be r/t renal function DVT PPX -on Heparin Advance Directives: No VTE prophylaxis?: Chemical Plan of care discussed with patient/family: Yes <KYLE SIEGEL R - Last Filed: 08/18/19 00:00> History of Present Illness Date of admission: 08/17/19 19:49 Medications and Allergies Active Meds: Active Medications Acetaminophen (Tylenol) 650 mg PO Q4H PRN PRN Reason: Pain MILD(1-3)/Fever >100.5/LOYA Docusate Sodium (Colace) 100 mg PO BID ARIA Last Admin: 08/17/19 22:31 Dose: 100 mg Documented by: Heparin Sodium (Porcine) (Heparin) 5,000 unit SUB-Q Q12HR [facility] Last Admin: 08/17/19 22:31 Dose: 5,000 unit Documented by: Ceftriaxone Sodium (Rocephin/Ns 1 Gm/50 Ml) 1 gm in 50 mls @ 100 mls/hr IV Q24H [facility]; Protocol Stop: 08/19/19 16:29 Last Admin: 08/17/19 15:48 Dose: 100 mls/hr Documented by: Sodium Chloride (Nacl 0.9% 1000 Ml) 1,000 mls @ 100 mls/hr IV DIRECT [facility] Last Admin: 08/17/19 21:20 Dose: 100 mls/hr Documented by: Ondansetron HCl (Zofran) 4 mg IV Q8H PRN PRN Reason: Nausea And Vomiting Sodium Chloride (Sodium Chloride Flush Syringe 10 Ml) 10 ml IV BID [facility] Last Admin: 08/17/19 22:31 Dose: Not Given Documented by: Sodium Chloride (Sodium Chloride Flush Syringe 10 Ml) 10 ml IV PRN PRN PRN Reason: LINE FLUSH Exam - Constitutional Vitals: Temp Pulse Resp BP Pulse Ox 102.8 F H 52 L 15 92/63 98 08/17/19 14:23 08/17/19 21:03 08/17/19 21:03 08/17/19 21:03 08/17/19 21:03 Results - Labs CBC & Chem 7: 08/17/19 18:00 08/17/19 Unknown Labs: Laboratory Last Values WBC 21.1 K/mm3 (4.5-11.0) H 08/17/19 18:00 RBC 4.65 M/mm3 (3.65-5.03) 08/17/19 18:00 Hgb 13.3 gm/dl (10.1-14.3) 08/17/19 18:00 Hct 38.4 % (30.3-42.9) 08/17/19 18:00 MCV 83 fl (79-97) 08/17/19 18:00 MCH 29 pg (28-32) 08/17/19 18:00 MCHC 35 % (30-34) H 08/17/19 18:00 RDW 16.3 % (13.2-15.2) H 08/17/19 18:00 Plt Count 240 K/mm3 (140-440) 08/17/19 18:00 Lymph % (Auto) Optometrist 08/17/19 18:00 [place] % (Auto) Optometrist 08/17/19 18:00 Eos % (Auto) Optometrist 08/17/19 18:00 Baso % (Auto) Optometrist 08/17/19 18:00 Lymph # Optometrist 08/17/19 18:00 [place] # Optometrist 08/17/19 18:00 Eos # Optometrist 08/17/19 18:00 Baso # Optometrist 08/17/19 18:00 Add Manual Diff Complete 08/17/19 18:00 Total Counted 100 08/17/19 18:00 Seg Neutrophils % Optometrist 08/17/19 18:00 Seg Neuts % (Manual) 87.0 % (40.0-70.0) H 08/17/19 18:00 Band Neutrophils % 0 % 08/17/19 18:00 Lymphocytes % (Manual) 10.0 % (13.4-35.0) L 08/17/19 18:00 Reactive Lymphs % (Man) 0 % 08/17/19 18:00 Monocytes % (Manual) 3.0 % (0.0-7.3) 08/17/19 18:00 Eosinophils % (Manual) 0 % (0.0-4.3) 08/17/19 18:00 Basophils % (Manual) 0 % (0.0-1.8) 08/17/19 18:00 Metamyelocytes % 0 % 08/17/19 18:00 Myelocytes % 0 % 08/17/19 18:00 Promyelocytes % 0 % 08/17/19 18:00 Blast Cells % 0 % 08/17/19 18:00 Nucleated RBC % Not Reportable 08/17/19 18:00 Seg Neutrophils # Optometrist 08/17/19 18:00 Seg Neutrophils # Man 18.4 K/mm3 (1.8-7.7) H 08/17/19 18:00 Band Neutrophils # 0.0 K/mm3 08/17/19 18:00 Lymphocytes # (Manual) 2.1 K/mm3 (1.2-5.4) 08/17/19 18:00 Abs React Lymphs (Man) 0.0 K/mm3 08/17/19 18:00 Monocytes # (Manual) 0.6 K/mm3 (0.0-0.8) 08/17/19 18:00 Eosinophils # (Manual) 0.0 K/mm3 (0.0-0.4) 08/17/19 18:00 Basophils # (Manual) 0.0 K/mm3 (0.0-0.1) 08/17/19 18:00 Metamyelocytes # 0.0 K/mm3 08/17/19 18:00 Myelocytes # 0.0 K/mm3 08/17/19 18:00 Promyelocytes # 0.0 K/mm3 08/17/19 18:00 Blast Cells # 0.0 K/mm3 08/17/19 18:00 WBC Morphology Not Reportable 08/17/19 18:00 Hypersegmented Neuts Not Reportable 08/17/19 18:00 Hyposegmented Neuts Not Reportable 08/17/19 18:00 Hypogranular Neuts Not Reportable 08/17/19 18:00 Smudge Cells Not Reportable 08/17/19 18:00 Toxic Granulation Not Reportable 08/17/19 18:00 Toxic Vacuolation Not Reportable 08/17/19 18:00 Dohle Bodies Not Reportable 08/17/19 18:00 Pel[place]-Huet Anomaly Not Reportable 08/17/19 18:00 Leroy Rods Not Reportable 08/17/19 18:00 Platelet Estimate Not Reportable 08/17/19 18:00 Clumped Platelets 1+ 08/17/19 18:00 Plt Clumps, EDTA Not Reportable 08/17/19 18:00 Large Platelets Not Reportable 08/17/19 18:00 Giant Platelets Not Reportable 08/17/19 18:00 Platelet Satelliting Not Reportable 08/17/19 18:00 Plt Morphology Comment Not Reportable 08/17/19 18:00 RBC Morphology Normal 08/17/19 18:00 Dimorphic RBCs Not Reportable 08/17/19 18:00 Polychromasia Not Reportable 08/17/19 18:00 Hypochromasia Not Reportable 08/17/19 18:00 Poikilocytosis Not Reportable 08/17/19 18:00 Anisocytosis Not Reportable 08/17/19 18:00 Microcytosis Not Reportable 08/17/19 18:00 Macrocytosis Not Reportable 08/17/19 18:00 Spherocytes Not Reportable 08/17/19 18:00 Pappenheimer Bodies Not Reportable 08/17/19 18:00 Sickle Cells Not Reportable 08/17/19 18:00 Target Cells Not Reportable 08/17/19 18:00 Tear Drop Cells Not Reportable 08/17/19 18:00 Ovalocytes Not Reportable 08/17/19 18:00 Helmet Cells Not Reportable 08/17/19 18:00 [place] Bodies Not Reportable 08/17/19 18:00 [place] Rings Not Reportable 08/17/19 18:00 Sarepta Cells Not Reportable 08/17/19 18:00 Bite Cells Not Reportable 08/17/19 18:00 Crenated Cell Not Reportable 08/17/19 18:00 Elliptocytes Not Reportable 08/17/19 18:00 Acanthocytes (Spur) Not Reportable 08/17/19 18:00 Rouleaux Not Reportable 08/17/19 18:00 Hemoglobin C Crystals Not Reportable 08/17/19 18:00 Schistocytes Not Reportable 08/17/19 18:00 Malaria parasites Not Reportable 08/17/19 18:00 [place] Bodies Not Reportable 08/17/19 18:00 Hem Pathologist Commnt No 08/17/19 18:00 APTT 21.9 Sec. (24.2-36.6) L 08/17/19 Unknown Sodium 140 mmol/L (137-145) 08/17/19 Unknown Potassium 5.0 mmol/L (3.6-5.0) 08/17/19 Unknown Chloride 97.4 mmol/L (98-107) L 08/17/19 Unknown Carbon Dioxide 21 mmol/L (22-30) L 08/17/19 Unknown Anion Gap 27 mmol/L 08/17/19 Unknown BUN 74 mg/dL (7-17) H 08/17/19 Unknown Creatinine 1.3 mg/dL (0.7-1.2) H 08/17/19 Unknown Estimated GFR 42 ml/min 08/17/19 Unknown BUN/Creatinine Ratio 57 % 08/17/19 Unknown Glucose 97 mg/dL (65-100) 08/17/19 Unknown POC Glucose 101 (70-105) 08/17/19 14:34 Lactic Acid 1.50 mmol/L (0.7-2.0) 08/17/19 Unknown Calcium 9.9 mg/dL (8.4-10.2) 08/17/19 Unknown Magnesium 2.40 mg/dL (1.7-2.3) H 08/17/19 Unknown Total Bilirubin 0.30 mg/dL (0.1-1.2) 08/17/19 Unknown AST 58 units/L (5-40) H 08/17/19 Unknown ALT 56 units/L (7-56) 08/17/19 Unknown Alkaline Phosphatase 82 units/L (35-129) 08/17/19 Unknown Total Creatine Kinase 297 units/L (30-135) H 08/17/19 Unknown Troponin T 0.030 ng/mL (0.00-0.029) H 08/17/19 Unknown Total Protein 7.3 g/dL (6.3-8.2) 08/17/19 Unknown Albumin 4.4 g/dL (3.9-5) 08/17/19 Unknown Albumin/Globulin Ratio 1.5 % 08/17/19 Unknown Triglycerides 61 mg/dL (2-149) 08/17/19 Unknown Cholesterol 178 mg/dL (50-199) 08/17/19 Unknown LDL Cholesterol Direct 83 mg/dL (50-130) 08/17/19 Unknown HDL Cholesterol 96 mg/dL (40-59) H 08/17/19 Unknown Cholesterol/HDL Ratio 1.85 % 08/17/19 Unknown TSH 0.762 mlU/mL (0.270-4.200) 08/17/19 Unknown Urine Color Yellow (Yellow) 08/17/19 Unknown Urine Turbidity Cloudy (Clear) 08/17/19 Unknown Urine pH 5.0 (5.0-7.0) 08/17/19 Unknown Ur Specific [place] 1.018 (1.003-1.030) 08/17/19 Unknown Urine Protein 100 mg/dl mg/dL (Negative) 08/17/19 Unknown Urine Glucose (UA) 50 mg/dL (Negative) 08/17/19 Unknown Urine Ketones 20 mg/dL (Negative) 08/17/19 Unknown Urine Blood Sm (Negative) 08/17/19 Unknown Urine Nitrite Neg (Negative) 08/17/19 Unknown Urine Bilirubin Neg (Negative) 08/17/19 Unknown Urine Urobilinogen < 2.0 mg/dL (<2.0) 08/17/19 Unknown Ur Leukocyte Esterase Sm (Negative) 08/17/19 Unknown Urine WBC (Auto) 20.0 /HPF (0.0-6.0) H 08/17/19 Unknown Urine RBC (Auto) 12.0 /HPF (0.0-6.0) 08/17/19 Unknown U Epithel Cells (Auto) 1.0 /HPF (0-13.0) 08/17/19 Unknown Urine Bacteria (Auto) 1+ /HPF (Negative) 08/17/19 Unknown Urine WBC Clumps 3+ /HPF 08/17/19 Unknown Hyaline Casts 10 /LPF 08/17/19 Unknown Urine Mucus 2+ /HPF 08/17/19 Unknown Urine Yeast (Budding) 3+ /HPF 08/17/19 Unknown Urine Sperm Few /HPF (TIRE RECAPPING MACHINE OPERATOR) 08/17/19 Unknown Salicylates < 0.3 mg/dL (2.8-20.0) L 08/17/19 Unknown Acetaminophen < 5.0 ug/mL (10.0-30.0) L 08/17/19 Unknown Assessment and Plan Assessment and plan: Patient seen and examined Agree with TIRE RECAPPING MACHINE OPERATOR history, physical exam and A/P cont abx, follow cx, iv fluid, monitor BMP, nurtrition consult, supportive care
[2019-08-17] MEDS: HEPARIN 5,000 UNIT/1 ML VIAL SUB-Q SCH (22:31)
[2019-08-17] MEDS: DOCUSATE SODIUM 100 MG CAP PO SCH (22:31)
[2019-08-18] MEDS: SODIUM CHLORIDE 0.9% 1000 ML 1,000 ML IV SCH ×2 (05:40→17:16)
[2019-08-18 06:22] LABS: Basophils # (Auto) 0.1 K/mm3 (0.0-0.1); Basophils % (Auto) 0.6 % (0.0-1.8); Hematocrit 30.9 % (30.3-42.9); Hemoglobin 10.5 gm/dl (10.1-14.3); Lymphocytes # (Auto) 2.5 K/mm3 (1.2-5.4); Lymphocytes % (Auto) 21.5 % (13.4-35.0); Mean Corpuscular HGB Conc 34 % (30-34); Mean Corpuscular Volume 83 fl (79-97); Monocytes # (Auto) 0.6 K/mm3 (0.0-0.8); Platelet Count 208 K/mm3 (140-440); Red Blood Count 3.75 M/mm3 (3.65-5.03); Red Cell Distribution Width 16.8 % (13.2-15.2)
[2019-08-18 06:48] LABS: BUN/Creatinine Ratio 73; Blood Urea Nitrogen 58 mg/dL (7-17); Calcium 9.4 mg/dL (8.4-10.2); Hemolysis Index 5
[2019-08-18 07:59] LABS: Basophils # (Auto) 0.2 K/mm3 (0.0-0.1); Basophils % (Auto) 1.3 % (0.0-1.8); Hematocrit 33.4 % (30.3-42.9); Hemoglobin 11.2 gm/dl (10.1-14.3); Lymphocytes # (Auto) 2.7 K/mm3 (1.2-5.4); Lymphocytes % (Auto) 20.5 % (13.4-35.0); Mean Corpuscular HGB Conc 34 % (30-34); Mean Corpuscular Volume 82 fl (79-97); Monocytes # (Auto) 0.6 K/mm3 (0.0-0.8); Monocytes % (Auto) 4.7 % (0.0-7.3); Platelet Count 224 K/mm3 (140-440); Red Blood Count 4.08 M/mm3 (3.65-5.03); Red Cell Distribution Width 16.8 % (13.2-15.2)
[2019-08-18 08:15] LABS: BUN/Creatinine Ratio 80; Blood Urea Nitrogen 56 mg/dL (7-17); Calcium 9.6 mg/dL (8.4-10.2); Hemolysis Index 6
[2019-08-18 08:26] LABS: Creatine Kinase MB 6.8 ng/mL (0.0-4.0)
[2019-08-18] MEDS: HEPARIN 5,000 UNIT/1 ML VIAL SUB-Q SCH ×2 (10:25→21:35)
[2019-08-18] MEDS: DOCUSATE SODIUM 100 MG CAP PO SCH ×2 (10:25→21:35)
--- NOTE | 2019-08-18 11:37 | Consultation ---
History of Present Illness - Reason for Consult Consult date: 08/18/19 acute renal failure Requesting physician: KRISH FRY - History of Present Illness 59-year-old lady with presumed multiple sclerosis chronically bedbound with bilateral lower extremity weakness, contractures and spasms. Brought from home where she is on hospice because of patient not eating or drinking for several days. BUN/creatinine elevated at 7/1.3 mg/dL on presentation. I'm consulted to assist in managing acute kidney injury. Patient's says she is unable to speak much and would like me to discuss with daughter. Daughter is not available for discussion and so my history is obtained from review of the records. Past History Past Medical History: hypertension, other (multiple sclerosis) Past Surgical History: No surgical history Social history: lives with family (daughter) Family history: no significant family history Medications and Allergies Allergies Allergy/AdvReac Type Severity Reaction Status Date / Time No Known Allergies Allergy Verified 08/17/19 14:19 Home Medications Medication Instructions Recorded Confirmed Last Taken Type Atenolol [Tenormin] 25 mg PO DAILY #30 tab 12/15/17 08/18/19 Unknown Rx Baclofen [Lioresal] 10 mg PO BID #40 tab 12/15/17 08/18/19 Unknown Rx clonazePAM [KlonoPIN] 0.5 mg PO BID 05/04/19 08/18/19 Unknown History Baclofen 20 mg PO QDAY 08/17/19 08/18/19 Unknown History LORazepam [Lorazepam] 1 mg PO QDAY 08/17/19 08/18/19 Unknown History Active Meds: Active Medications Acetaminophen (Tylenol) 650 mg PO Q4H PRN PRN Reason: Pain MILD(1-3)/Fever >100.5/LOYA Last Admin: 08/18/19 10:28 Dose: 650 mg Documented by: Docusate Sodium (Colace) 100 mg PO BID ARIA Last Admin: 08/18/19 10:25 Dose: 100 mg Documented by: Heparin Sodium (Porcine) (Heparin) 5,000 unit SUB-Q Q12HR ARIA Last Admin: 08/18/19 10:25 Dose: 5,000 unit Documented by: Ceftriaxone Sodium (Rocephin/Ns 1 Gm/50 Ml) 1 gm in 50 mls @ 100 mls/hr IV Q24H [facility]; Protocol Stop: 08/19/19 16:29 Last Admin: 08/17/19 15:48 Dose: 100 mls/hr Documented by: Sodium Chloride (Nacl 0.9% 1000 Ml) 1,000 mls @ 100 mls/hr IV DIRECT [facility] Last Admin: 08/18/19 05:40 Dose: 100 mls/hr Documented by: Ondansetron HCl (Zofran) 4 mg IV Q8H PRN PRN Reason: Nausea And Vomiting Sodium Chloride (Sodium Chloride Flush Syringe 10 Ml) 10 ml IV BID [facility] Last Admin: 08/18/19 10:26 Dose: 10 ml Documented by: Sodium Chloride (Sodium Chloride Flush Syringe 10 Ml) 10 ml IV PRN PRN PRN Reason: LINE FLUSH Review of Systems All systems: negative (we will to obtain other than noted in history of present illness as patient says she is unable to speak due to frailty) Exam - Vital Signs Vital signs: Vital Signs Temp Pulse Resp BP Pulse Ox 98 F 115 H 16 135/87 96 08/17/19 14:19 08/17/19 14:19 08/17/19 14:19 08/17/19 14:19 08/17/19 14:19 - Physical Exam Narrative exam: Chronically ill looking, she attempted middle aged female lying in bed in no acute distress HEENT: NCAT, bitemporal wasting pink oral mucous membrane Neck: Supple, no venous distention CVS: S1S2 RRR with no murmur, rub or gallop Chest: Clear to auscultation Abdomen: Scaphoid,, soft, nontender, no organomegaly, bowel sounds are present Extremities: No edema, severe muscle wasting Genitourinary deferred Neuro: Awake, alert no focal deficits Results - Lab Results 08/18/19 07:20 08/19/19 13:24 Most recent lab results Calcium 9.6 mg/dL (8.4-10.2) 08/18/19 07:20 Magnesium 2.30 mg/dL (1.7-2.3) 08/18/19 07:20 Assessment and Plan - Patient Problems (1) ROBB (acute kidney injury) Current Visit: Yes Status: Acute Plan to address problem: Prerenal azotemia azotemia secondary to volume depletion. Increase BUN/creatinine ratio consistent with diagnosis. Get urine studies. Continue volume repletion. Follow-up electrolytes and renal function. (2) Other proteinuria Current Visit: Yes Status: Acute Plan to address problem: Quantify proteinuria. (3) SIRS (systemic inflammatory response syndrome) Current Visit: Yes Status: Acute Plan to address problem: Probably secondary to urinary tract infection. Leukocytosis improving. Continue empiric antibiotics. Follow-up cultures (4) Failure to thrive Current Visit: Yes Status: Acute Plan to address problem: Nutritional support needed
[2019-08-18] MEDS: cefTRIAXone/NS 1 GM/50 ML 1 GM/50 ML BAG IV SCH (17:15)
[2019-08-18] MEDS ORDERED: LORazepam 2 MG/ML VIAL IV ONE (17:26)
--- NOTE | 2019-08-18 17:33 | Progress Note ---
Assessment and Plan Assessment and plan: Patient is a 59-year-old Kiswahili speaking (Informatics Specialist service used) woman from [place] with a history of functional quadriplegia/bedbound state x 2-3 years due to progressive MS (suspected by history) who presents as a [facility] ED with complaints of generalized weakness, left face twitching, and right lower extremity twitching. Patient BMI is 13.7 and she was in Hospice. I called daughter Paula, no answer Generalized weakness, bradycardia -sinus bradycardia 45, 0701 am, due severe malnutrition -contineu tele -get ECHO Sepsie due to UTI -Leukocytosis at 21.1 -MAXIMUM TEMPERATURE 102.8 -Blood and urine cultures pending -UA positive for UTI -Receiving an IVF and IV ABX -CXR negative -CT head negative -Continue supportive care Urinary tract infection -UA positive for UTI -urine wbc 20 -Urine culture pending -on IV Abx ROBB -Cr on admission 1.3 (trending up from 0.518/03/16) -Hydrate with IVF -Avoid nephrotoxic agents -Renal dose all meds -Nephrology consulted -Suspected ATN Failure to thrive with SEVERE Malnutrition, poa -BMI 13.7 -Currently on hospice -Case management consult pending -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 Follow-up on current diagnosis of MS flare, u rosepsis. No overnight events reported to me. Patient denies any chest pain, shortness breath, nausea/vomiting or severe headaches. Imaging, nursing note, chart, labs and old chart reviewed. Discussed with patient. Hospitalist Physical - Physical exam Narrative exam: Gen: severe cachetic bmi 13.7, chronically disable, awake alert talking HEENT: NCAT, EOMI, PERRL, OP Clear Neck: supple, no adenopathy, no thyromegaly, no JVD CVS/Heart: regular bradycardia normal S1S2, pulses present bilaterally Chest/Lungs: CTA B, Symmetrical chest expansion, good air entry bilaterally GI/Abdomen: soft, NTND, good bowel sounds, no guarding or rebound /Bladder: no suprapubic tenderness, no CVA or paraspinal tenderness Extermity/Skin: atrophic limbs x 4 MSK: contracted limbs Neuro: CN 2-12 grossly intact, no new focal deficits Psych: calm - Constitutional Vitals: Temp Pulse Resp BP Pulse Ox 99.5 F 48 L 16 88/55 91 08/18/19 11:57 08/18/19 11:57 08/18/19 11:57 08/18/19 11:57 08/18/19 11:57 Results - Labs CBC & Chem 7: 08/18/19 07:20 08/18/19 07:20 Labs: Laboratory Last Values WBC 13.2 K/mm3 (4.5-11.0) H 08/18/19 07:20 RBC 4.08 M/mm3 (3.65-5.03) 08/18/19 07:20 Hgb 11.2 gm/dl (10.1-14.3) 08/18/19 07:20 Hct 33.4 % (30.3-42.9) 08/18/19 07:20 MCV 82 fl (79-97) 08/18/19 07:20 MCH 28 pg (28-32) 08/18/19 07:20 MCHC 34 % (30-34) 08/18/19 07:20 RDW 16.8 % (13.2-15.2) H 08/18/19 07:20 Plt Count 224 K/mm3 (140-440) 08/18/19 07:20 Lymph % (Auto) 20.5 % (13.4-35.0) 08/18/19 07:20 Bond % (Auto) 4.7 % (0.0-7.3) 08/18/19 07:20 Eos % (Auto) 0.0 % (0.0-4.3) 08/18/19 07:20 Baso % (Auto) 1.3 % (0.0-1.8) 08/18/19 07:20 Lymph # 2.7 K/mm3 (1.2-5.4) 08/18/19 07:20 Bond # 0.6 K/mm3 (0.0-0.8) 08/18/19 07:20 Eos # 0.0 K/mm3 (0.0-0.4) 08/18/19 07:20 Baso # 0.2 K/mm3 (0.0-0.1) H 08/18/19 07:20 Add Manual Diff Complete 08/17/19 18:00 Total Counted 100 08/17/19 18:00 Seg Neutrophils % 73.5 % (40.0-70.0) H 08/18/19 07:20 Seg Neuts % (Manual) 87.0 % (40.0-70.0) H 08/17/19 18:00 Band Neutrophils % 0 % 08/17/19 18:00 Lymphocytes % (Manual) 10.0 % (13.4-35.0) L 08/17/19 18:00 Reactive Lymphs % (Man) 0 % 08/17/19 18:00 Monocytes % (Manual) 3.0 % (0.0-7.3) 08/17/19 18:00 Eosinophils % (Manual) 0 % (0.0-4.3) 08/17/19 18:00 Basophils % (Manual) 0 % (0.0-1.8) 08/17/19 18:00 Metamyelocytes % 0 % 08/17/19 18:00 Myelocytes % 0 % 08/17/19 18:00 Promyelocytes % 0 % 08/17/19 18:00 Blast Cells % 0 % 08/17/19 18:00 Nucleated RBC % Not Reportable 08/17/19 18:00 Seg Neutrophils # 9.7 K/mm3 (1.8-7.7) H 08/18/19 07:20 Seg Neutrophils # Man 18.4 K/mm3 (1.8-7.7) H 08/17/19 18:00 Band Neutrophils # 0.0 K/mm3 08/17/19 18:00 Lymphocytes # (Manual) 2.1 K/mm3 (1.2-5.4) 08/17/19 18:00 Abs React Lymphs (Man) 0.0 K/mm3 08/17/19 18:00 Monocytes # (Manual) 0.6 K/mm3 (0.0-0.8) 08/17/19 18:00 Eosinophils # (Manual) 0.0 K/mm3 (0.0-0.4) 08/17/19 18:00 Basophils # (Manual) 0.0 K/mm3 (0.0-0.1) 08/17/19 18:00 Metamyelocytes # 0.0 K/mm3 08/17/19 18:00 Myelocytes # 0.0 K/mm3 08/17/19 18:00 Promyelocytes # 0.0 K/mm3 08/17/19 18:00 Blast Cells # 0.0 K/mm3 08/17/19 18:00 WBC Morphology Not Reportable 08/17/19 18:00 Hypersegmented Neuts Not Reportable 08/17/19 18:00 Hyposegmented Neuts Not Reportable 08/17/19 18:00 Hypogranular Neuts Not Reportable 08/17/19 18:00 Smudge Cells Not Reportable 08/17/19 18:00 Toxic Granulation Not Reportable 08/17/19 18:00 Toxic Vacuolation Not Reportable 08/17/19 18:00 Dohle Bodies Not Reportable 08/17/19 18:00 Pelger-Huet Anomaly Not Reportable 08/17/19 18:00 Leroy Rods Not Reportable 08/17/19 18:00 Platelet Estimate Not Reportable 08/17/19 18:00 Clumped Platelets 1+ 08/17/19 18:00 Plt Clumps, EDTA Not Reportable 08/17/19 18:00 Large Platelets Not Reportable 08/17/19 18:00 Giant Platelets Not Reportable 08/17/19 18:00 Platelet Satelliting Not Reportable 08/17/19 18:00 Plt Morphology Comment Not Reportable 08/17/19 18:00 RBC Morphology Normal 08/17/19 18:00 Dimorphic RBCs Not Reportable 08/17/19 18:00 Polychromasia Not Reportable 08/17/19 18:00 Hypochromasia Not Reportable 08/17/19 18:00 Poikilocytosis Not Reportable 08/17/19 18:00 Anisocytosis Not Reportable 08/17/19 18:00 Microcytosis Not Reportable 08/17/19 18:00 Macrocytosis Not Reportable 08/17/19 18:00 Spherocytes Not Reportable 08/17/19 18:00 Pappenheimer Bodies Not Reportable 08/17/19 18:00 Sickle Cells Not Reportable 08/17/19 18:00 Target Cells Not Reportable 08/17/19 18:00 Tear Drop Cells Not Reportable 08/17/19 18:00 Ovalocytes Not Reportable 08/17/19 18:00 Helmet Cells Not Reportable 08/17/19 18:00 [place] Bodies Not Reportable 08/17/19 18:00 [place] Rings Not Reportable 08/17/19 18:00 [place] Cells Not Reportable 08/17/19 18:00 Bite Cells Not Reportable 08/17/19 18:00 Crenated Cell Not Reportable 08/17/19 18:00 Elliptocytes Not Reportable 08/17/19 18:00 Acanthocytes (Spur) Not Reportable 08/17/19 18:00 Rouleaux Not Reportable 08/17/19 18:00 Hemoglobin C Crystals Not Reportable 08/17/19 18:00 Schistocytes Not Reportable 08/17/19 18:00 Malaria parasites Not Reportable 08/17/19 18:00 [place] Bodies Not Reportable 08/17/19 18:00 Hem Pathologist Commnt No 08/17/19 18:00 APTT 21.9 Sec. (24.2-36.6) L 08/17/19 Unknown Sodium 140 mmol/L (137-145) 08/18/19 07:20 Potassium 4.2 mmol/L (3.6-5.0) 08/18/19 07:20 Chloride 103.4 mmol/L (98-107) 08/18/19 07:20 Carbon Dioxide 18 mmol/L (22-30) L 08/18/19 07:20 Anion Gap 23 mmol/L 08/18/19 07:20 BUN 56 mg/dL (7-17) H 08/18/19 07:20 Creatinine 0.7 mg/dL (0.7-1.2) 08/18/19 07:20 Estimated GFR > 60 ml/min 08/18/19 07:20 BUN/Creatinine Ratio 80 % 08/18/19 07:20 Glucose 76 mg/dL (65-100) 08/18/19 07:20 POC Glucose 101 (70-105) 08/17/19 14:34 Lactic Acid 1.50 mmol/L (0.7-2.0) 08/17/19 Unknown Calcium 9.6 mg/dL (8.4-10.2) 08/18/19 07:20 Magnesium 2.30 mg/dL (1.7-2.3) 08/18/19 07:20 Total Bilirubin 0.30 mg/dL (0.1-1.2) 08/17/19 Unknown AST 58 units/L (5-40) H 08/17/19 Unknown ALT 56 units/L (7-56) 08/17/19 Unknown Alkaline Phosphatase 82 units/L (35-129) 08/17/19 Unknown Total Creatine Kinase 361 units/L (30-135) H 08/18/19 07:20 CK-MB (CK-2) 6.8 ng/mL (0.0-4.0) H 08/18/19 07:20 CK-MB (CK-2) Rel Index 1.8 (0-4) 08/18/19 07:20 Troponin T 0.011 ng/mL (0.00-0.029) 08/18/19 07:20 Total Protein 7.3 g/dL (6.3-8.2) 08/17/19 Unknown Albumin 4.4 g/dL (3.9-5) 08/17/19 Unknown Albumin/Globulin Ratio 1.5 % 08/17/19 Unknown Triglycerides 61 mg/dL (2-149) 08/17/19 Unknown Cholesterol 178 mg/dL (50-199) 08/17/19 Unknown LDL Cholesterol Direct 83 mg/dL (50-130) 08/17/19 Unknown HDL Cholesterol 96 mg/dL (40-59) H 08/17/19 Unknown Cholesterol/HDL Ratio 1.85 % 08/17/19 Unknown TSH 0.762 mlU/mL (0.270-4.200) 08/17/19 Unknown Urine Color Yellow (Yellow) 08/17/19 Unknown Urine Turbidity Cloudy (Clear) 08/17/19 Unknown Urine pH 5.0 (5.0-7.0) 08/17/19 Unknown Ur Specific [place] 1.018 (1.003-1.030) 08/17/19 Unknown Urine Protein 100 mg/dl mg/dL (Negative) 08/17/19 Unknown Urine Glucose (UA) 50 mg/dL (Negative) 08/17/19 Unknown Urine Ketones 20 mg/dL (Negative) 08/17/19 Unknown Urine Blood Sm (Negative) 08/17/19 Unknown Urine Nitrite Neg (Negative) 08/17/19 Unknown Urine Bilirubin Neg (Negative) 08/17/19 Unknown Urine Urobilinogen < 2.0 mg/dL (<2.0) 08/17/19 Unknown Ur Leukocyte Esterase Sm (Negative) 08/17/19 Unknown Urine WBC (Auto) 20.0 /HPF (0.0-6.0) H 08/17/19 Unknown Urine RBC (Auto) 12.0 /HPF (0.0-6.0) 08/17/19 Unknown U Epithel Cells (Auto) 1.0 /HPF (0-13.0) 08/17/19 Unknown Urine Bacteria (Auto) 1+ /HPF (Negative) 08/17/19 Unknown Urine WBC Clumps 3+ /HPF 08/17/19 Unknown Hyaline Casts 10 /LPF 08/17/19 Unknown Urine Mucus 2+ /HPF 08/17/19 Unknown Urine Yeast (Budding) 3+ /HPF 08/17/19 Unknown Urine Sperm Few /HPF (TOWER OBSERVER) 08/17/19 Unknown Salicylates < 0.3 mg/dL (2.8-20.0) L 08/17/19 Unknown Acetaminophen < 5.0 ug/mL (10.0-30.0) L 08/17/19 Unknown Active Medications - Current Medications Current Medications: Generic Name Dose Route Start Last Admin Trade Name Freq PRN Reason Stop Dose Admin Acetaminophen 650 mg 08/17/19 20:36 08/18/19 10:28 Tylenol PO 650 mg Q4H PRN Administration Pain MILD(1-3)/Fever >100.5/LOYA Baclofen 10 mg 08/18/19 22:00 Lioresal PO BID ARIA Clonazepam 0.5 mg 08/18/19 22:00 Klonopin PO BID ARIA Docusate Sodium 100 mg 08/17/19 22:00 08/18/19 10:25 Colace PO 100 mg BID ARIA Administration Heparin Sodium (Porcine) 5,000 unit 08/17/19 22:00 08/18/19 10:25 Heparin SUB-Q 5,000 unit Q12HR ARIA Administration Ceftriaxone Sodium 1 gm in 50 mls @ 100 mls/hr 08/17/19 16:00 08/18/19 17:15 Rocephin/Ns 1 Gm/50 Ml IV 08/19/19 16:29 100 mls/hr Q24H ARIA Administration Protocol Sodium Chloride 1,000 mls @ 100 mls/hr 08/17/19 21:00 08/18/19 17:16 Nacl 0.9% 1000 Ml IV 100 mls/hr DIRECT ARIA Administration Ondansetron HCl 4 mg 08/17/19 20:36 Zofran IV Q8H PRN Nausea And Vomiting Sodium Chloride 10 ml 08/17/19 22:00 08/18/19 10:26 Sodium Chloride Flush Syringe 10 Ml IV 10 ml BID ARIA Administration Sodium Chloride 10 ml 08/17/19 20:36 Sodium Chloride Flush Syringe 10 Ml IV PRN PRN LINE FLUSH Nutrition/Malnutrition Assess - Dietary Evaluation Nutrition/Malnutrition Findings: Nutrition Notes Start: 08/18/19 11:32 Freq: Status: Active Protocol: Document 08/18/19 11:32 TONY (Rec: 08/18/19 12:03 TONY [id number]) Co-Sign 08/18/19 11:32 KH Nutrition Notes Need for Assessment generated from: MD Order,MST Initial or Follow up Assessment Current Diagnosis Acute Kidney Injury, Hypertension Other Pertinent Diagnosis Multiple sclerosis Current Diet Cardiac diet Labs/Tests BUN 56 Pertinent Medications NS 0.9% 100ml/hr Height 5 ft 5 in Weight 37.4 kg [place] Body Weight (kg) 56.81 BMI 13.7 Weight change and time frame Pt stated she didn't know how much wt she lost. Stated her UBW is 160lb. Pt lost 53% of her UBW. Current weight is from bedscale. Subjective/Other Information RD consult for malnutrition per MD. Pt didn't speak latvian well and her daughter wasn't at bedside to translate . Pt stated her appetite was good and hasn't experienced any nausea or vomiting. Pt was being fed by pt tech at time of visit. Pt tech agreed that pt will benefit from mechanical soft diet. Burn Absent Trauma Absent GI Symptoms None Difficulty In Chewing Current % PO Poor (25-49%) Minimum of two criteria Yes Body Fat Depletion Moderate depletion (severe) Muscle Mass Moderate Depletion (severe) #1 Nutrition Diagnosis Malnutrition Etiology Multiple sclerosis As Evidenced by Signs and Symptoms Moderate body fat depletion and muscle mass depletion Is patient on ventilator? No Is Patient Ambulatory and/or Out of Bed No REE-([place]-St. Jeor-confined to bed) 1139.160 Kcal/Kg value to use for calculation 42 Approximate Energy Requirements Using 1571 kcal/Kg Calculation Used for Recommendations Kcal/kg Additional Notes Protein: 37-44g/kg (1-1.2g/kg) Fluid: 1ml/kcal Nutrition Intervention Change Diet Order: Change to mechanical soft cardiac diet Add Supplement/Snack (indicate name/kcal Ensure Enlive BID /protein ) Provides kCal: 700 Provides Protein (gm) 40 Goal #1 Meet at least 90% of energy and protein needs via PO and ONS intakes Anticipated Discharge Needs: Mechanical soft diet with cardiac modification Follow-Up By: 08/22/19 Additional Comments F/U for PO and ONS intakes.
[2019-08-18] MEDS ORDERED: SODIUM CHLORIDE 0.9% 1000 ML 1,000 ML IV ONE (17:58)
--- NOTE | 2019-08-18 18:10 | Consultation ---
History of Present Illness Consult date: 08/18/19 Chief complaint: seizure, progressive MS? History of present illness: This is a 59 YO F who presented to the ED with twitching and suspected seizure. No known history of seizure. PT has had 2 episodes of twitching in house and started on Keppra. On my arrival no complaints. Past History Past Medical History: hypertension, other (multiple sclerosis) Past Surgical History: No surgical history Social history: lives with family (daughter) Family history: no significant family history Medications and Allergies Allergies Allergy/AdvReac Type Severity Reaction Status Date / Time No Known Allergies Allergy Verified 08/17/19 14:19 Home Medications Medication Instructions Recorded Confirmed Last Taken Type Atenolol [Tenormin] 25 mg PO DAILY #30 tab 12/15/17 08/18/19 Unknown Rx Baclofen [Lioresal] 10 mg PO BID #40 tab 12/15/17 08/18/19 Unknown Rx clonazePAM [KlonoPIN] 0.5 mg PO BID 05/04/19 08/18/19 Unknown History Baclofen 20 mg PO QDAY 08/17/19 08/18/19 Unknown History LORazepam [Lorazepam] 1 mg PO QDAY 08/17/19 08/18/19 Unknown History Active Meds: Active Medications Acetaminophen (Tylenol) 650 mg PO Q4H PRN PRN Reason: Pain MILD(1-3)/Fever >100.5/LOYA Last Admin: 08/18/19 10:28 Dose: 650 mg Documented by: Baclofen (Lioresal) 10 mg PO BID ARIA Clonazepam (Klonopin) 0.5 mg PO BID ARIA Docusate Sodium (Colace) 100 mg PO BID [facility]A Last Admin: 08/18/19 10:25 Dose: 100 mg Documented by: Heparin Sodium (Porcine) (Heparin) 5,000 unit SUB-Q Q12HR [facility] Last Admin: 08/18/19 10:25 Dose: 5,000 unit Documented by: Ceftriaxone Sodium (Rocephin/Ns 1 Gm/50 Ml) 1 gm in 50 mls @ 100 mls/hr IV Q24H [facility]; Protocol Stop: 08/19/19 16:29 Last Admin: 08/18/19 17:15 Dose: 100 mls/hr Documented by: Sodium Chloride (Nacl 0.9% 1000 Ml) 1,000 mls @ 100 mls/hr IV DIRECT [facility]A Last Admin: 08/18/19 17:16 Dose: 100 mls/hr Documented by: Levetiracetam 500 mg/ Dextrose 105 mls @ 400 mls/hr IV Q12HR [facility] Sodium Chloride (Nacl 0.9% 1000 Ml) 1,000 mls @ 999 mls/hr IV BOL[facility] ONE Stop: 08/18/19 18:58 Last Admin: 08/18/19 18:05 Dose: 999 mls/hr Documented by: Ondansetron HCl (Zofran) 4 mg IV Q8H PRN PRN Reason: Nausea And Vomiting Sodium Chloride (Sodium Chloride Flush Syringe 10 Ml) 10 ml IV BID [facility]A Last Admin: 08/18/19 10:26 Dose: 10 ml Documented by: Sodium Chloride (Sodium Chloride Flush Syringe 10 Ml) 10 ml IV PRN PRN PRN Reason: LINE FLUSH Review of Systems Neurological: seizures Physical Examination - Vital Signs Vital Signs: Vital Signs Temp Pulse Resp BP Pulse Ox 98 F 115 H 16 135/87 96 08/17/19 14:19 08/17/19 14:19 08/17/19 14:19 08/17/19 14:19 08/17/19 14:19 - Constitutional General appearance: comfortable - EENT EENT: Present: mucous membranes moist - Respiratory Respiratory: Present: lungs clear - Cardiovascular Cardiovascular: Present: regular rate Extremities: Present: no peripheral edema bilatateraly - Gastrointestinal Gastrointestinal: Present: normoactive bowel sounds - Neurologic Cranial nerve examination: PERRL, V1/V2/V3 grossly intact, face symmetric Speech examination: intact Sensorimotor examination: intact Motor examination - right side: 2/5: biceps, triceps, wrist flexion, wrist extension, window shade installer, hip flexors, knee extensors, dorsiflexion, toe extension (EHL), plantarflexion Motor examination - left side: 2/5: biceps, triceps, wrist flexion, wrist extension, window shade installer, hip flexors, knee extensors, dorsiflexion, toe extension (EHL), plantarflexion Detailed sensory examination: light touch Spine examination: cervical: Tinel sign Results - Laboratory Findings CBC and BMP: 08/18/19 07:20 08/18/19 07:20 Abnormal Lab Findings: Abnormal Labs 08/17/19 08/17/19 08/17/19 18:00 Unknown Unknown WBC 21.1 H MCHC 35 H RDW 16.3 H Baso # Seg Neutrophils % Seg Neuts % (Manual) 87.0 H Lymphocytes % (Manual) 10.0 L Seg Neutrophils # Seg Neutrophils # Man 18.4 H APTT 21.9 L Chloride Carbon Dioxide BUN Creatinine Magnesium AST Total Creatine Kinase CK-MB (CK-2) Troponin T HDL Cholesterol Urine WBC (Auto) 20.0 H Salicylates Acetaminophen 08/17/19 08/17/19 08/17/19 Unknown Unknown Unknown WBC MCHC RDW Baso # Seg Neutrophils % Seg Neuts % (Manual) Lymphocytes % (Manual) Seg Neutrophils # Seg Neutrophils # Man APTT Chloride 97.4 L Carbon Dioxide 21 L BUN 74 H Creatinine 1.3 H Magnesium 2.40 H AST 58 H Total Creatine Kinase 297 H CK-MB (CK-2) Troponin T 0.030 H HDL Cholesterol 96 H Urine WBC (Auto) Salicylates < 0.3 L Acetaminophen < 5.0 L 08/18/19 08/18/19 08/18/19 06:00 06:00 07:20 WBC 11.8 H 13.2 H MCHC RDW 16.8 H 16.8 H Baso # 0.2 H Seg Neutrophils % 72.9 H 73.5 H Seg Neuts % (Manual) Lymphocytes % (Manual) Seg Neutrophils # 8.6 H 9.7 H Seg Neutrophils # Man APTT Chloride Carbon Dioxide 19 L BUN 58 H Creatinine Magnesium AST Total Creatine Kinase CK-MB (CK-2) Troponin T HDL Cholesterol Urine WBC (Auto) Salicylates Acetaminophen 08/18/19 08/18/19 07:20 07:20 WBC MCHC RDW Baso # Seg Neutrophils % Seg Neuts % (Manual) Lymphocytes % (Manual) Seg Neutrophils # Seg Neutrophils # Man APTT Chloride Carbon Dioxide 18 L BUN 56 H Creatinine Magnesium AST Total Creatine Kinase 361 H CK-MB (CK-2) 6.8 H Troponin T HDL Cholesterol Urine WBC (Auto) Salicylates Acetaminophen Assessment and Plan This is a 59 YO F with possible seizure in the setting of progressive MS and UTI. REcommend: Aggressive UTI treatment as you are doing MRI Brain w/wo EEG Continue Keppra as you are doing Continue care for all medical issues as you are doing Will need to follow up with neurology outpatient for medication adjustments
[2019-08-18] MEDS: levETIRAcetam 500 MG in DEXTROSE 5% IN WATER 100 ML IV SCH (21:34)
[2019-08-18] MEDS: BACLOFEN 10 MG TAB PO SCH (21:35)
[2019-08-18] MEDS: clonazePAM 0.5 MG TAB PO SCH (21:35)
[2019-08-19] MEDS: SODIUM CHLORIDE 0.9% 1000 ML 1,000 ML IV SCH ×2 (05:05→17:32)
[2019-08-19] MEDS ORDERED: LORazepam 2 MG/ML VIAL IV NR (08:34)
[2019-08-19] MEDS: levETIRAcetam 500 MG in DEXTROSE 5% IN WATER 100 ML IV SCH ×2 (12:10→21:11)
[2019-08-19] MEDS: DOCUSATE SODIUM 100 MG CAP PO SCH ×2 (13:24→21:12)
[2019-08-19] MEDS: HEPARIN 5,000 UNIT/1 ML VIAL SUB-Q SCH ×2 (13:44→21:12)
[2019-08-19] MEDS: BACLOFEN 10 MG TAB PO SCH ×2 (13:44→21:12)
[2019-08-19] MEDS: clonazePAM 0.5 MG TAB PO SCH ×2 (13:44→21:12)
[2019-08-19 14:00] LABS: BUN/Creatinine Ratio 45; Blood Urea Nitrogen 18 mg/dL (7-17); Calcium 9.1 mg/dL (8.4-10.2); Hemolysis Index 11
[2019-08-19] MEDS ORDERED: POTASSIUM CHLORIDE ER 20 MEQ TAB PO ONE (15:38)
[2019-08-19] MEDS ORDERED: LORazepam 2 MG/ML VIAL ONE (16:52)
--- NOTE | 2019-08-19 16:59 | Progress Note ---
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 Patient BMI is 13.7 and she was in Hospice. I called daughter Paula again, spoke with her. Patient was in Hospice because she was in [facility] * TTE Conclusions: Mild MR, mild TR, estimated EF is 55-60% Generalized weakness, bradycardia -sinus bradycardia 45, 0701 am, due severe malnutrition -contineu tele -get ECHO Sepsie due to UTI -Leukocytosis at 21.1 -MAXIMUM TEMPERATURE 102.8 -Blood and urine cultures pending -UA positive for UTI -Receiving an IVF and IV ABX -CXR negative -CT head negative -Continue supportive care Urinary tract infection -UA positive for UTI -urine wbc 20 -Urine culture pending -on IV Abx Seizure like episode in ED and was given iv keppra x 1, given iv ativan and start IV keppra bid order EEG Neurology to see this evening. ROBB -Cr on admission 1.3 (trending up from 0.518/03/16) -Hydrate with IVF -Avoid nephrotoxic agents -Renal dose all meds -Nephrology consulted -Suspected ATN Failure to thrive with SEVERE Malnutrition, poa -BMI 13.7 -Currently on hospice -Case management consult pending -consult Physician Practice Coordinator Right lower extremity muscular twitching, most likely MS flare -most likely MS flare, consult Neurology, careful with iv steroids with sepsis Left sided facial muscular twitching -Hx of MS -Hx intermittent spasms past 4 years -continue Balcofen renal function better -Neurology Consulted Elevated Troponin, type 2 OK -0.030 -Will continue to trend -May be r/t renal function DVT PPX -on Heparin poor prognosis MRI pending History Interval history: Patient was seen and examined. Follow-up on current diagnosis of MS flare, uros epsis. No overnight events reported to me. Patient denies any chest pain, shortness breath, nausea/vomiting or severe headaches. Imaging, nursing note, chart, labs and old chart reviewed. Discussed with patient. Hospitalist Physical - Physical exam Narrative exam: Gen: severe cachetic bmi 13.7, chronically disable, awake alert talking HEENT: NCAT, EOMI, PERRL, OP Clear Neck: supple, no adenopathy, no thyromegaly, no JVD CVS/Heart: regular bradycardia normal S1S2, pulses present bilaterally Chest/Lungs: CTA B, Symmetrical chest expansion, good air entry bilaterally GI/Abdomen: soft, NTND, good bowel sounds, no guarding or rebound /Bladder: no suprapubic tenderness, no CVA or paraspinal tenderness Extermity/Skin: atrophic limbs x 4 MSK: contracted limbs Neuro: CN 2-12 grossly intact, no new focal deficits Psych: calm - Constitutional Vitals: Temp Pulse Resp BP Pulse Ox 97.9 F 62 16 127/70 100 08/19/19 16:23 08/19/19 16:23 08/19/19 16:23 08/19/19 16:23 08/19/19 16:23 Results - Labs CBC & Chem 7: 08/18/19 07:20 08/19/19 13:24 Labs: Laboratory Last Values WBC 13.2 K/mm3 (4.5-11.0) H 08/18/19 07:20 RBC 4.08 M/mm3 (3.65-5.03) 08/18/19 07:20 Hgb 11.2 gm/dl (10.1-14.3) 08/18/19 07:20 Hct 33.4 % (30.3-42.9) 08/18/19 07:20 MCV 82 fl (79-97) 08/18/19 07:20 MCH 28 pg (28-32) 08/18/19 07:20 MCHC 34 % (30-34) 08/18/19 07:20 RDW 16.8 % (13.2-15.2) H 08/18/19 07:20 Plt Count 224 K/mm3 (140-440) 08/18/19 07:20 Lymph % (Auto) 20.5 % (13.4-35.0) 08/18/19 07:20 [place] % (Auto) 4.7 % (0.0-7.3) 08/18/19 07:20 Eos % (Auto) 0.0 % (0.0-4.3) 08/18/19 07:20 Baso % (Auto) 1.3 % (0.0-1.8) 08/18/19 07:20 Lymph # 2.7 K/mm3 (1.2-5.4) 08/18/19 07:20 [place] # 0.6 K/mm3 (0.0-0.8) 08/18/19 07:20 Eos # 0.0 K/mm3 (0.0-0.4) 08/18/19 07:20 Baso # 0.2 K/mm3 (0.0-0.1) H 08/18/19 07:20 Add Manual Diff Complete 08/17/19 18:00 Total Counted 100 08/17/19 18:00 Seg Neutrophils % 73.5 % (40.0-70.0) H 08/18/19 07:20 Seg Neuts % (Manual) 87.0 % (40.0-70.0) H 08/17/19 18:00 Band Neutrophils % 0 % 08/17/19 18:00 Lymphocytes % (Manual) 10.0 % (13.4-35.0) L 08/17/19 18:00 Reactive Lymphs % (Man) 0 % 08/17/19 18:00 Monocytes % (Manual) 3.0 % (0.0-7.3) 08/17/19 18:00 Eosinophils % (Manual) 0 % (0.0-4.3) 08/17/19 18:00 Basophils % (Manual) 0 % (0.0-1.8) 08/17/19 18:00 Metamyelocytes % 0 % 08/17/19 18:00 Myelocytes % 0 % 08/17/19 18:00 Promyelocytes % 0 % 08/17/19 18:00 Blast Cells % 0 % 08/17/19 18:00 Nucleated RBC % Not Reportable 08/17/19 18:00 Seg Neutrophils # 9.7 K/mm3 (1.8-7.7) H 08/18/19 07:20 Seg Neutrophils # Man 18.4 K/mm3 (1.8-7.7) H 08/17/19 18:00 Band Neutrophils # 0.0 K/mm3 08/17/19 18:00 Lymphocytes # (Manual) 2.1 K/mm3 (1.2-5.4) 08/17/19 18:00 Abs React Lymphs (Man) 0.0 K/mm3 08/17/19 18:00 Monocytes # (Manual) 0.6 K/mm3 (0.0-0.8) 08/17/19 18:00 Eosinophils # (Manual) 0.0 K/mm3 (0.0-0.4) 08/17/19 18:00 Basophils # (Manual) 0.0 K/mm3 (0.0-0.1) 08/17/19 18:00 Metamyelocytes # 0.0 K/mm3 08/17/19 18:00 Myelocytes # 0.0 K/mm3 08/17/19 18:00 Promyelocytes # 0.0 K/mm3 08/17/19 18:00 Blast Cells # 0.0 K/mm3 08/17/19 18:00 WBC Morphology Not Reportable 08/17/19 18:00 Hypersegmented Neuts Not Reportable 08/17/19 18:00 Hyposegmented Neuts Not Reportable 08/17/19 18:00 Hypogranular Neuts Not Reportable 08/17/19 18:00 Smudge Cells Not Reportable 08/17/19 18:00 Toxic Granulation Not Reportable 08/17/19 18:00 Toxic Vacuolation Not Reportable 08/17/19 18:00 Dohle Bodies Not Reportable 08/17/19 18:00 Pelger-Huet Anomaly Not Reportable 08/17/19 18:00 Leroy Rods Not Reportable 08/17/19 18:00 Platelet Estimate Not Reportable 08/17/19 18:00 Clumped Platelets 1+ 08/17/19 18:00 Plt Clumps, EDTA Not Reportable 08/17/19 18:00 Large Platelets Not Reportable 08/17/19 18:00 Giant Platelets Not Reportable 08/17/19 18:00 Platelet Satelliting Not Reportable 08/17/19 18:00 Plt Morphology Comment Not Reportable 08/17/19 18:00 RBC Morphology Normal 08/17/19 18:00 Dimorphic RBCs Not Reportable 08/17/19 18:00 Polychromasia Not Reportable 08/17/19 18:00 Hypochromasia Not Reportable 08/17/19 18:00 Poikilocytosis Not Reportable 08/17/19 18:00 Anisocytosis Not Reportable 08/17/19 18:00 Microcytosis Not Reportable 08/17/19 18:00 Macrocytosis Not Reportable 08/17/19 18:00 Spherocytes Not Reportable 08/17/19 18:00 Pappenheimer Bodies Not Reportable 08/17/19 18:00 Sickle Cells Not Reportable 08/17/19 18:00 Target Cells Not Reportable 08/17/19 18:00 Tear Drop Cells Not Reportable 08/17/19 18:00 Ovalocytes Not Reportable 08/17/19 18:00 Helmet Cells Not Reportable 08/17/19 18:00 [place]toe Bodies Not Reportable 08/17/19 18:00 [place] Rings Not Reportable 08/17/19 18:00 [place] Cells Not Reportable 08/17/19 18:00 Bite Cells Not Reportable 08/17/19 18:00 Crenated Cell Not Reportable 08/17/19 18:00 Elliptocytes Not Reportable 08/17/19 18:00 Acanthocytes (Spur) Not Reportable 08/17/19 18:00 Rouleaux Not Reportable 08/17/19 18:00 Hemoglobin C Crystals Not Reportable 08/17/19 18:00 Schistocytes Not Reportable 08/17/19 18:00 Malaria parasites Not Reportable 08/17/19 18:00 [place] Bodies Not Reportable 08/17/19 18:00 Hem Pathologist Commnt No 08/17/19 18:00 APTT 21.9 Sec. (24.2-36.6) L 08/17/19 Unknown Sodium 140 mmol/L (137-145) 08/19/19 13:24 Potassium 3.3 mmol/L (3.6-5.0) L D 08/19/19 13:24 Chloride 104.2 mmol/L (98-107) 08/19/19 13:24 Carbon Dioxide 19 mmol/L (22-30) L 08/19/19 13:24 Anion Gap 20 mmol/L 08/19/19 13:24 BUN 18 mg/dL (7-17) H 08/19/19 13:24 Creatinine 0.4 mg/dL (0.7-1.2) L 08/19/19 13:24 Estimated GFR > 60 ml/min 08/19/19 13:24 BUN/Creatinine Ratio 45 % 11/22/19 13:24 Glucose 72 mg/dL (65-100) 08/19/19 13:24 POC Glucose 101 (70-105) 08/17/19 14:34 Lactic Acid 1.50 mmol/L (0.7-2.0) 08/17/19 Unknown Calcium 9.1 mg/dL (8.4-10.2) 08/19/19 13:24 Phosphorus 1.80 mg/dL (2.5-4.5) L 08/19/19 13:24 Magnesium 2.30 mg/dL (1.7-2.3) 08/18/19 07:20 Total Bilirubin 0.30 mg/dL (0.1-1.2) 08/17/19 Unknown AST 58 units/L (5-40) H 08/17/19 Unknown ALT 56 units/L (7-56) 08/17/19 Unknown Alkaline Phosphatase 82 units/L (35-129) 08/17/19 Unknown Total Creatine Kinase 361 units/L (30-135) H 08/18/19 07:20 CK-MB (CK-2) 6.8 ng/mL (0.0-4.0) H 08/18/19 07:20 CK-MB (CK-2) Rel Index 1.8 (0-4) 08/18/19 07:20 Troponin T 0.011 ng/mL (0.00-0.029) 08/18/19 07:20 Total Protein 7.3 g/dL (6.3-8.2) 08/17/19 Unknown Albumin 4.4 g/dL (3.9-5) 08/17/19 Unknown Albumin/Globulin Ratio 1.5 % 08/17/19 Unknown Triglycerides 61 mg/dL (2-149) 08/17/19 Unknown Cholesterol 178 mg/dL (50-199) 08/17/19 Unknown LDL Cholesterol Direct 83 mg/dL (50-130) 08/17/19 Unknown HDL Cholesterol 96 mg/dL (40-59) H 08/17/19 Unknown Cholesterol/HDL Ratio 1.85 % 08/17/19 Unknown TSH 0.762 mlU/mL (0.270-4.200) 08/17/19 Unknown Urine Color Yellow (Yellow) 08/17/19 Unknown Urine Turbidity Cloudy (Clear) 08/17/19 Unknown Urine pH 5.0 (5.0-7.0) 08/17/19 Unknown Ur Specific [place] 1.018 (1.003-1.030) 08/17/19 Unknown Urine Protein 100 mg/dl mg/dL (Negative) 08/17/19 Unknown Urine Glucose (UA) 50 mg/dL (Negative) 08/17/19 Unknown Urine Ketones 20 mg/dL (Negative) 08/17/19 Unknown Urine Blood Sm (Negative) 08/17/19 Unknown Urine Nitrite Neg (Negative) 08/17/19 Unknown Urine Bilirubin Neg (Negative) 08/17/19 Unknown Urine Urobilinogen < 2.0 mg/dL (<2.0) 08/17/19 Unknown Ur Leukocyte Esterase Sm (Negative) 08/17/19 Unknown Urine WBC (Auto) 20.0 /HPF (0.0-6.0) H 08/17/19 Unknown Urine RBC (Auto) 12.0 /HPF (0.0-6.0) 08/17/19 Unknown U Epithel Cells (Auto) 1.0 /HPF (0-13.0) 08/17/19 Unknown Urine Bacteria (Auto) 1+ /HPF (Negative) 08/17/19 Unknown Urine WBC Clumps 3+ /HPF 08/17/19 Unknown Hyaline Casts 10 /LPF 08/17/19 Unknown Urine Mucus 2+ /HPF 08/17/19 Unknown Urine Yeast (Budding) 3+ /HPF 08/17/19 Unknown Urine Sperm Few /HPF (LITHOGRAPHIC PROOFER APPRENTICE) 08/17/19 Unknown Salicylates < 0.3 mg/dL (2.8-20.0) L 08/17/19 Unknown Acetaminophen < 5.0 ug/mL (10.0-30.0) L 08/17/19 Unknown Active Medications - Current Medications Current Medications: Generic Name Dose Route Start Last Admin Trade Name Freq PRN Reason Stop Dose Admin Acetaminophen 650 mg 08/17/19 20:36 08/18/19 10:28 Tylenol PO 650 mg Q4H PRN Administration Pain MILD(1-3)/Fever >100.5/LOYA Baclofen 10 mg 08/18/19 22:00 08/19/19 13:44 Lioresal PO 10 mg BID ARIA Administration Clonazepam 0.5 mg 08/18/19 22:00 08/19/19 13:44 Klonopin PO 0.5 mg BID ARIA Administration Docusate Sodium 100 mg 08/17/19 22:00 08/19/19 13:24 Colace PO Not Given BID ARIA Heparin Sodium (Porcine) 5,000 unit 08/17/19 22:00 08/19/19 13:44 Heparin SUB-Q 5,000 unit Q12HR RAIA Administration Sodium Chloride 1,000 mls @ 100 mls/hr 08/17/19 21:00 08/19/19 05:05 Nacl 0.9% 1000 Ml IV 100 mls/hr DIRECT ARIA Administration Levetiracetam 500 mg/ Dextrose 105 mls @ 400 mls/hr 08/18/19 22:00 08/19/19 12:10 IV 400 mls/hr Q12HR ARIA Administration Ondansetron HCl 4 mg 08/17/19 20:36 Zofran IV Q8H PRN Nausea And Vomiting Sodium Chloride 10 ml 08/17/19 22:00 08/19/19 12:10 Sodium Chloride Flush Syringe 10 Ml IV 10 ml BID ARIA Administration Sodium Chloride 10 ml 08/17/19 20:36 Sodium Chloride Flush Syringe 10 Ml IV PRN PRN LINE FLUSH Nutrition/Malnutrition Assess - Dietary Evaluation Nutrition/Malnutrition Findings: Nutrition Notes Start: 08/18/19 11:32 Freq: Status: Active Protocol: Document 08/18/19 11:32 TONY (Rec: 08/18/19 12:03 TOYN [id number]) Co-Sign 08/18/19 11:32 Nutrition Notes Need for Assessment generated from: MD Order,MST Initial or Follow up Assessment Current Diagnosis Acute Kidney Injury, Hypertension Other Pertinent Diagnosis Multiple sclerosis Current Diet Cardiac diet Labs/Tests BUN 56 Pertinent Medications NS 0.9% 100ml/hr Height 5 ft 5 in Weight 37.4 kg [place] Body Weight (kg) 56.81 BMI 13.7 Weight change and time frame Pt stated she didn't know how much wt she lost. Stated her UBW is 160lb. Pt lost 53% of her UBW. Current weight is from bedscale. Subjective/Other Information RD consult for malnutrition per MD. Pt didn't speak hebrew well and her daughter wasn't at bedside to translate . Pt stated her appetite was good and hasn't experienced any nausea or vomiting. Pt was being fed by pt tech at time of visit. Pt tech agreed that pt will benefit from mechanical soft diet. Burn Absent Trauma Absent GI Symptoms None Difficulty In Chewing Current % PO Poor (25-49%) Minimum of two criteria Yes Body Fat Depletion Moderate depletion (severe) Muscle Mass Moderate Depletion (severe) #1 Nutrition Diagnosis Malnutrition Etiology Multiple sclerosis As Evidenced by Signs and Symptoms Moderate body fat depletion and muscle mass depletion Is patient on ventilator? No Is Patient Ambulatory and/or Out of Bed No REE-([facility]-confined to bed) 1139.160 Kcal/Kg value to use for calculation 42 Approximate Energy Requirements Using 1571 kcal/Kg Calculation Used for Recommendations Kcal/kg Additional Notes Protein: 37-44g/kg (1-1.2g/kg) Fluid: 1ml/kcal Nutrition Intervention Change Diet Order: Change to mechanical soft cardiac diet Add Supplement/Snack (indicate name/kcal Ensure Enlive BID /protein ) Provides kCal: 700 Provides Protein (gm) 40 Goal #1 Meet at least 90% of energy and protein needs via PO and ONS intakes Anticipated Discharge Needs: Mechanical soft diet with cardiac modification Follow-Up By: 08/22/19 Additional Comments F/U for PO and ONS intakes.
[2019-08-19] MEDS: cefTRIAXone/NS 1 GM/50 ML 1 GM/50 ML BAG IV SCH ×2 (17:00→17:31)
[2019-08-19] MEDS ORDERED: POTASSIUM CHLORIDE 20 MEQ PACKET PO ONE (17:04)
--- NOTE | 2019-08-19 19:10 | Magnetic Resonance Report ---
Nonenhanced and contrast-enhanced MR scan of the brain INDICATION / CLINICAL INFORMATION: seizure, history of MS. TECHNIQUE: Multiplanar, multisequence MR images of the brain were noncontrast MRI brain normal brain MR obtained before and after 8 mL of MultiHance COMPARISON: CT scan from 08/17/2019 FINDINGS: BRAIN / INTRACRANIAL CONTENTS: No acute ischemia, acute hemorrhage, mass effect, midline shift, or hy drocephalus. No chronic infarct or atrophy. Given the history of multiple sclerosis, few scattered nonspecific white matter lesions are seen. The se do not have the characteristic appearance of demyelinating plaques (Cotton finger appearance). Cor pus callosum, optic nerves and middle cerebellar peduncles are normal. Contrast enhanced series, I do not see enhancing parenchymal or meningeal lesions. Extracerebral space is prominent bifrontally symmetrically probably due to mild involution. CRANIOCERVICAL JUNCTION: No significant abnormality. VASCULAR FLOW-VOIDS: No significant abnormality. ORBITS: No significant abnormality of visualized orbits. SINUSES / MASTOIDS: Mucosal thickening is seen in the sphenoid sinus and in the right mastoid air kajal ls. ADDITIONAL FINDINGS: None. IMPRESSION: 1. I do not see an acute parenchymal lesion in the brain I do not see MR findings to suggest demyelinating plaques Signer Name: Fatou Recinos MD Signed: 08/19/2019 7:06 PM Workstation Name: [id number]
--- NOTE | 2019-08-19 19:26 | Event Note ---
Date: 08/19/19 Unable to evaluate patient as she went for MRI. Will reevaluate in the morning
[2019-08-20] MEDS: SODIUM CHLORIDE 0.9% 1000 ML 1,000 ML IV SCH ×2 (04:21→21:27)
[2019-08-20 06:45] LABS: Hematocrit 33.8 % (30.3-42.9); Hemoglobin 11.5 gm/dl (10.1-14.3); Mean Corpuscular HGB Conc 34 % (30-34); Mean Corpuscular Volume 82 fl (79-97); Platelet Count 193 K/mm3 (140-440); Red Blood Count 4.11 M/mm3 (3.65-5.03); Red Cell Distribution Width 16.6 % (13.2-15.2)
[2019-08-20 07:10] LABS: BUN/Creatinine Ratio 33; Blood Urea Nitrogen 10 mg/dL (7-17); Hemolysis Index 9
--- NOTE | 2019-08-20 10:40 | Progress Note ---
Assessment and Plan - Patient Problems (1) ROBB (acute kidney injury) Current Visit: Yes Status: Acute Plan to address problem: Prerenal azotemia azotemia secondary to volume depletion. Increase BUN/creatinine ratio consistent with diagnosis. Kidney function has improved back to normal. Follow-up electrolytes and renal function periodically. We' ll sign off. Please reconsult when necessary (2) Other proteinuria Current Visit: Yes Status: Acute Plan to address problem: ? Nonnephrotic range proteinuria. Workup and further management as an outpati ent (3) SIRS (systemic inflammatory response syndrome) Current Visit: Yes Status: Acute Plan to address problem: Probably secondary to urinary tract infection. Leukocytosis resolved. Cultures negative. Continue empiric antibiotics. (4) Failure to thrive Current Visit: Yes Status: Acute Plan to address problem: Nutritional support needed (5) Hypophosphatemia Current Visit: Yes Status: Acute Plan to address problem: Supplement phosphorous and follow-up level Subjective Date of service: 08/20/19 Principal diagnosis: acute kidney injury Interval history: Patient seen lying in bed. Complains of numbness in her feet. No more nausea or vomiting. Objective - Exam Narrative Exam: Chronically ill looking, emaciated middle aged female lying in bed in no acute distress HEENT: NCAT, bitemporal wasting pink oral mucous membrane Neck: Supple, no venous distention CVS: S1S2 RRR with no murmur, rub or gallop Chest: Clear to auscultation Abdomen: Scaphoid,, soft, nontender, no organomegaly, bowel sounds are present Extremities: No edema, severe muscle wasting Genitourinary deferred Neuro: Awake, alert no focal deficits - Vital Signs Vital signs: Vital Signs - 12hr 08/19/19 08/20/19 08/20/19 23:42 00:00 05:08 Temperature 98.4 F 98.4 F Pulse Rate 68 59 L 53 L Respiratory 18 18 Rate Blood Pressure 162/87 143/73 O2 Sat by Pulse 98 100 Oximetry - Lab 08/20/19 04:58 08/20/19 04:58 Most recent lab results Calcium 9.0 mg/dL (8.4-10.2) 08/20/19 04:58 Phosphorus 1.80 mg/dL (2.5-4.5) L 08/19/19 13:24 Magnesium 2.30 mg/dL (1.7-2.3) 08/18/19 07:20 Medications & Allergies - Medications Allergies/Adverse Reactions: Allergies No Known Allergies Allergy (Verified 08/17/19 14:19) Home Medications: Home Medications Medication Instructions Recorded Confirmed Last Taken Type Atenolol [Tenormin] 25 mg PO DAILY #30 tab 12/15/17 08/18/19 Unknown Rx Baclofen [Lioresal] 10 mg PO BID #40 tab 12/15/17 08/18/19 Unknown Rx clonazePAM [KlonoPIN] 0.5 mg PO BID 05/04/19 08/18/19 Unknown History Baclofen 20 mg PO QDAY 08/17/19 08/18/19 Unknown History LORazepam [Lorazepam] 1 mg PO QDAY 08/17/19 08/18/19 Unknown History Active Medications: Generic Name Dose Route Start Last Admin Trade Name Freq PRN Reason Stop Dose Admin Acetaminophen 650 mg 08/17/19 20:36 08/18/19 10:28 Tylenol PO 650 mg Q4H PRN Administration Pain MILD(1-3)/Fever >100.5/LOYA Baclofen 10 mg 08/18/19 22:00 08/19/19 21:12 Lioresal PO 10 mg BID ARIA Administration Clonazepam 0.5 mg 08/18/19 22:00 08/19/19 21:12 Klonopin PO 0.5 mg BID ARIA Administration Docusate Sodium 100 mg 08/17/19 22:00 08/19/19 21:12 Colace PO 100 mg BID ARIA Administration Heparin Sodium (Porcine) 5,000 unit 08/17/19 22:00 08/19/19 21:12 Heparin SUB-Q 5,000 unit Q12HR ARIA Administration Sodium Chloride 1,000 mls @ 100 mls/hr 08/17/19 21:00 08/20/19 04:21 Nacl 0.9% 1000 Ml IV 100 mls/hr DIRECT ARIA Administration Levetiracetam 500 mg/ Dextrose 105 mls @ 400 mls/hr 08/18/19 22:00 08/19/19 21:11 IV 400 mls/hr Q12HR ARIA Administration Ceftriaxone Sodium 1 gm in 50 mls @ 100 mls/hr 08/19/19 18:00 08/19/19 17:31 Rocephin/Ns 1 Gm/50 Ml IV Not Given Q24HR REPLACED BY [facility] Protocol Ondansetron HCl 4 mg 08/17/19 20:36 Zofran IV Q8H PRN Nausea And Vomiting Sodium Chloride 10 ml 08/17/19 22:00 08/19/19 21:14 Sodium Chloride Flush Syringe 10 Ml IV 10 ml BID ARIA Administration Sodium Chloride 10 ml 08/17/19 20:36 Sodium Chloride Flush Syringe 10 Ml IV PRN PRN LINE FLUSH Sodium Phosphate 250 mg 08/20/19 10:00 K-Phos Neutral PO QID ARIA
[2019-08-20] MEDS: levETIRAcetam 500 MG in DEXTROSE 5% IN WATER 100 ML IV SCH ×2 (11:20→21:28)
[2019-08-20] MEDS: cefTRIAXone/NS 1 GM/50 ML 1 GM/50 ML BAG IV SCH (11:22)
[2019-08-20] MEDS: K-PHOS NEUTRAL 250 MG TAB PO SCH ×4 (11:23→21:28)
[2019-08-20] MEDS: HEPARIN 5,000 UNIT/1 ML VIAL SUB-Q SCH ×2 (11:24→21:28)
[2019-08-20] MEDS: clonazePAM 0.5 MG TAB PO SCH ×2 (11:24→21:28)
[2019-08-20] MEDS: BACLOFEN 10 MG TAB PO SCH ×2 (11:24→21:27)
[2019-08-20] MEDS: DOCUSATE SODIUM 100 MG CAP PO SCH ×2 (11:32→21:28)
--- NOTE | 2019-08-20 17:15 | Progress Note ---
Assessment and Plan - Patient Problems (1) ROBB (acute kidney injury) Current Visit: Yes Status: Acute Plan to address problem: Acute kidney injury improving been followed by nephrology Dr. Oliver. (2) Convulsion Current Visit: Yes Status: Acute Plan to address problem: Patient without any new seizure today. Appears to be multiple sclerosis flare. (3) Failure to thrive Current Visit: Yes Status: Acute Plan to address problem: Overall failure to thrive appears to be secondary to MS flare. Awaiting fpc placement. History Interval history: Lo did seem better today. Was able to answer questions best in [place]. On physical exam still depressed mood temporal wasting cachexia appears thin but is alert and able to make needs known. Diagnosed with MS flare awaiting fpc placement. Hospitalist Physical - Constitutional Vitals: Temp Pulse Resp BP Pulse Ox 98.4 F 63 18 143/73 100 08/20/19 05:08 08/20/19 12:00 08/20/19 05:08 08/20/19 05:08 08/20/19 05:08 General appearance: Present: cachectic, disheveled - EENT Eyes: Present: PERRL, EOM intact ENT: hearing intact, clear oral mucosa, dentition normal - Neck Neck: Present: supple, normal ROM. Absent: enlarged thyroid, masses or JVD, cervical LAD, carotid bruits - Respiratory Respiratory: bilateral: diminished, rales - Cardiovascular Rhythm: regular Heart Sounds: Present: S1 & S2 - Extremities Extremities: no ischemia, pulses intact, pulses symmetrical, No edema, normal temperature, normal color Peripheral Pulses: within normal limits - Abdominal General gastrointestinal: soft, non-tender, non-distended, other (scaphoid), no hepatomegaly, no splenomegaly - Integumentary Integumentary: Present: clear, warm, dry, erythema. Absent: jaundice, rash, pale - Psychiatric Psychiatric: appropriate mood/affect, other (cognitive impairment moderate.) - Neurologic Neurologic: CNII-XII intact, focal deficits, moves all extremities, other Results - Labs CBC & Chem 7: 08/20/19 04:58 08/20/19 04:58 Labs: Laboratory Last Values WBC 5.9 K/mm3 (4.5-11.0) 08/20/19 04:58 RBC 4.11 M/mm3 (3.65-5.03) 08/20/19 04:58 Hgb 11.5 gm/dl (10.1-14.3) 08/20/19 04:58 Hct 33.8 % (30.3-42.9) 08/20/19 04:58 MCV 82 fl (79-97) 08/20/19 04:58 MCH 28 pg (28-32) 08/20/19 04:58 MCHC 34 % (30-34) 08/20/19 04:58 RDW 16.6 % (13.2-15.2) H 08/20/19 04:58 Plt Count 193 K/mm3 (140-440) 08/20/19 04:58 Lymph % (Auto) 20.5 % (13.4-35.0) 08/18/19 07:20 Gem % (Auto) 4.7 % (0.0-7.3) 08/18/19 07:20 Eos % (Auto) 0.0 % (0.0-4.3) 08/18/19 07:20 Baso % (Auto) 1.3 % (0.0-1.8) 08/18/19 07:20 Lymph # 2.7 K/mm3 (1.2-5.4) 08/18/19 07:20 Gem # 0.6 K/mm3 (0.0-0.8) 08/18/19 07:20 Eos # 0.0 K/mm3 (0.0-0.4) 08/18/19 07:20 Baso # 0.2 K/mm3 (0.0-0.1) H 08/18/19 07:20 Add Manual Diff Complete 08/17/19 18:00 Total Counted 100 08/17/19 18:00 Seg Neutrophils % 73.5 % (40.0-70.0) H 08/18/19 07:20 Seg Neuts % (Manual) 87.0 % (40.0-70.0) H 08/17/19 18:00 Band Neutrophils % 0 % 08/17/19 18:00 Lymphocytes % (Manual) 10.0 % (13.4-35.0) L 08/17/19 18:00 Reactive Lymphs % (Man) 0 % 08/17/19 18:00 Monocytes % (Manual) 3.0 % (0.0-7.3) 08/17/19 18:00 Eosinophils % (Manual) 0 % (0.0-4.3) 08/17/19 18:00 Basophils % (Manual) 0 % (0.0-1.8) 08/17/19 18:00 Metamyelocytes % 0 % 08/17/19 18:00 Myelocytes % 0 % 08/17/19 18:00 Promyelocytes % 0 % 08/17/19 18:00 Blast Cells % 0 % 08/17/19 18:00 Nucleated RBC % Not Reportable 08/17/19 18:00 Seg Neutrophils # 9.7 K/mm3 (1.8-7.7) H 08/18/19 07:20 Seg Neutrophils # Man 18.4 K/mm3 (1.8-7.7) H 08/17/19 18:00 Band Neutrophils # 0.0 K/mm3 08/17/19 18:00 Lymphocytes # (Manual) 2.1 K/mm3 (1.2-5.4) 08/17/19 18:00 Abs React Lymphs (Man) 0.0 K/mm3 08/17/19 18:00 Monocytes # (Manual) 0.6 K/mm3 (0.0-0.8) 08/17/19 18:00 Eosinophils # (Manual) 0.0 K/mm3 (0.0-0.4) 08/17/19 18:00 Basophils # (Manual) 0.0 K/mm3 (0.0-0.1) 08/17/19 18:00 Metamyelocytes # 0.0 K/mm3 08/17/19 18:00 Myelocytes # 0.0 K/mm3 08/17/19 18:00 Promyelocytes # 0.0 K/mm3 08/17/19 18:00 Blast Cells # 0.0 K/mm3 08/17/19 18:00 WBC Morphology Not Reportable 08/17/19 18:00 Hypersegmented Neuts Not Reportable 08/17/19 18:00 Hyposegmented Neuts Not Reportable 08/17/19 18:00 Hypogranular Neuts Not Reportable 08/17/19 18:00 Smudge Cells Not Reportable 08/17/19 18:00 Toxic Granulation Not Reportable 08/17/19 18:00 Toxic Vacuolation Not Reportable 08/17/19 18:00 Dohle Bodies Not Reportable 08/17/19 18:00 Pelger-Huet Anomaly Not Reportable 08/17/19 18:00 Leroy Rods Not Reportable 08/17/19 18:00 Platelet Estimate Not Reportable 08/17/19 18:00 Clumped Platelets 1+ 08/17/19 18:00 Plt Clumps, EDTA Not Reportable 08/17/19 18:00 Large Platelets Not Reportable 08/17/19 18:00 Giant Platelets Not Reportable 08/17/19 18:00 Platelet Satelliting Not Reportable 08/17/19 18:00 Plt Morphology Comment Not Reportable 08/17/19 18:00 RBC Morphology Normal 08/17/19 18:00 Dimorphic RBCs Not Reportable 08/17/19 18:00 Polychromasia Not Reportable 08/17/19 18:00 Hypochromasia Not Reportable 08/17/19 18:00 Poikilocytosis Not Reportable 08/17/19 18:00 Anisocytosis Not Reportable 08/17/19 18:00 Microcytosis Not Reportable 08/17/19 18:00 Macrocytosis Not Reportable 08/17/19 18:00 Spherocytes Not Reportable 08/17/19 18:00 Pappenheimer Bodies Not Reportable 08/17/19 18:00 Sickle Cells Not Reportable 08/17/19 18:00 Target Cells Not Reportable 08/17/19 18:00 Tear Drop Cells Not Reportable 08/17/19 18:00 Ovalocytes Not Reportable 08/17/19 18:00 Helmet Cells Not Reportable 08/17/19 18:00 Corbin-Stoy Bodies Not Reportable 08/17/19 18:00 [place] Rings Not Reportable 08/17/19 18:00 [place] Cells Not Reportable 08/17/19 18:00 Bite Cells Not Reportable 08/17/19 18:00 Crenated Cell Not Reportable 08/17/19 18:00 Elliptocytes Not Reportable 08/17/19 18:00 Acanthocytes (Spur) Not Reportable 08/17/19 18:00 Rouleaux Not Reportable 08/17/19 18:00 Hemoglobin C Crystals Not Reportable 08/17/19 18:00 Schistocytes Not Reportable 08/17/19 18:00 Malaria parasites Not Reportable 08/17/19 18:00 [place] Bodies Not Reportable 08/17/19 18:00 Hem Pathologist Commnt No 08/17/19 18:00 APTT 21.9 Sec. (24.2-36.6) L 08/17/19 Unknown Sodium 142 mmol/L (137-145) 08/20/19 04:58 Potassium 3.6 mmol/L (3.6-5.0) 08/20/19 04:58 Chloride 106.4 mmol/L (98-107) 08/20/19 04:58 Carbon Dioxide 20 mmol/L (22-30) L 08/20/19 04:58 Anion Gap 19 mmol/L 08/20/19 04:58 BUN 10 mg/dL (7-17) 08/20/19 04:58 Creatinine 0.3 mg/dL (0.7-1.2) L 08/20/19 04:58 Estimated GFR > 60 ml/min 08/20/19 04:58 BUN/Creatinine Ratio 33 % 08/20/19 04:58 Glucose 74 mg/dL (65-100) 08/20/19 04:58 POC Glucose 101 (70-105) 08/17/19 14:34 Lactic Acid 1.50 mmol/L (0.7-2.0) 08/17/19 Unknown Calcium 9.0 mg/dL (8.4-10.2) 08/20/19 04:58 Phosphorus 1.80 mg/dL (2.5-4.5) L 08/19/19 13:24 Magnesium 2.30 mg/dL (1.7-2.3) 08/18/19 07:20 Total Bilirubin 0.30 mg/dL (0.1-1.2) 08/17/19 Unknown AST 58 units/L (5-40) H 08/17/19 Unknown ALT 56 units/L (7-56) 08/17/19 Unknown Alkaline Phosphatase 82 units/L (35-129) 08/17/19 Unknown Total Creatine Kinase 361 units/L (30-135) H 08/18/19 07:20 CK-MB (CK-2) 6.8 ng/mL (0.0-4.0) H 08/18/19 07:20 CK-MB (CK-2) Rel Index 1.8 (0-4) 08/18/19 07:20 Troponin T 0.011 ng/mL (0.00-0.029) 08/18/19 07:20 Total Protein 7.3 g/dL (6.3-8.2) 08/17/19 Unknown Albumin 4.4 g/dL (3.9-5) 08/17/19 Unknown Albumin/Globulin Ratio 1.5 % 08/17/19 Unknown Triglycerides 61 mg/dL (2-149) 08/17/19 Unknown Cholesterol 178 mg/dL (50-199) 08/17/19 Unknown LDL Cholesterol Direct 83 mg/dL (50-130) 08/17/19 Unknown HDL Cholesterol 96 mg/dL (40-59) H 08/17/19 Unknown Cholesterol/HDL Ratio 1.85 % 08/17/19 Unknown TSH 0.762 mlU/mL (0.270-4.200) 08/17/19 Unknown Urine Color Yellow (Yellow) 08/17/19 Unknown Urine Turbidity Cloudy (Clear) 08/17/19 Unknown Urine pH 5.0 (5.0-7.0) 08/17/19 Unknown Ur Specific [place] 1.018 (1.003-1.030) 08/17/19 Unknown Urine Protein 100 mg/dl mg/dL (Negative) 08/17/19 Unknown Urine Glucose (UA) 50 mg/dL (Negative) 08/17/19 Unknown Urine Ketones 20 mg/dL (Negative) 08/17/19 Unknown Urine Blood Sm (Negative) 08/17/19 Unknown Urine Nitrite Neg (Negative) 08/17/19 Unknown Urine Bilirubin Neg (Negative) 08/17/19 Unknown Urine Urobilinogen < 2.0 mg/dL (<2.0) 08/17/19 Unknown Ur Leukocyte Esterase Sm (Negative) 08/17/19 Unknown Urine WBC (Auto) 20.0 /HPF (0.0-6.0) H 08/17/19 Unknown Urine RBC (Auto) 12.0 /HPF (0.0-6.0) 08/17/19 Unknown U Epithel Cells (Auto) 1.0 /HPF (0-13.0) 08/17/19 Unknown Urine Bacteria (Auto) 1+ /HPF (Negative) 08/17/19 Unknown Urine WBC Clumps 3+ /HPF 08/17/19 Unknown Hyaline Casts 10 /LPF 08/17/19 Unknown Urine Mucus 2+ /HPF 08/17/19 Unknown Urine Yeast (Budding) 3+ /HPF 08/17/19 Unknown Urine Sperm Few /HPF (R DEVELOPER) 08/17/19 Unknown Salicylates < 0.3 mg/dL (2.8-20.0) L 08/17/19 Unknown Acetaminophen < 5.0 ug/mL (10.0-30.0) L 08/17/19 Unknown Active Medications - Current Medications Current Medications: Generic Name Dose Route Start Last Admin Trade Name Freq PRN Reason Stop Dose Admin Acetaminophen 650 mg 08/17/19 20:36 08/18/19 10:28 Tylenol PO 650 mg Q4H PRN Administration Pain MILD(1-3)/Fever >100.5/LOYA Baclofen 10 mg 08/18/19 22:00 08/20/19 11:24 Lioresal PO 10 mg BID ARIA Administration Clonazepam 0.5 mg 08/18/19 22:00 08/20/19 11:24 Klonopin PO 0.5 mg BID ARIA Administration Docusate Sodium 100 mg 08/17/19 22:00 08/20/19 11:32 Colace PO 100 mg BID ARIA Administration Heparin Sodium (Porcine) 5,000 unit 08/17/19 22:00 08/20/19 11:24 Heparin SUB-Q 5,000 unit Q12HR ARIA Administration Sodium Chloride 1,000 mls @ 100 mls/hr 08/17/19 21:00 08/20/19 04:21 Nacl 0.9% 1000 Ml IV 100 mls/hr DIRECT ARIA Administration Levetiracetam 500 mg/ Dextrose 105 mls @ 400 mls/hr 08/18/19 22:00 08/20/19 11:20 IV 400 mls/hr Q12HR ARIA Administration Ceftriaxone Sodium 1 gm in 50 mls @ 100 mls/hr 08/19/19 18:00 08/20/19 11:22 Rocephin/Ns 1 Gm/50 Ml IV 100 mls/hr Q24HR ARIA Administration Protocol Ondansetron HCl 4 mg 08/17/19 20:36 Zofran IV Q8H PRN Nausea And Vomiting Sodium Chloride 10 ml 08/17/19 22:00 08/20/19 11:24 Sodium Chloride Flush Syringe 10 Ml IV 10 ml BID ARIA Administration Sodium Chloride 10 ml 08/17/19 20:36 Sodium Chloride Flush Syringe 10 Ml IV PRN PRN LINE FLUSH Sodium Phosphate 250 mg 08/20/19 10:00 08/20/19 15:23 K-Phos Neutral PO 250 mg QID ARIA Administration Nutrition/Malnutrition Assess - Dietary Evaluation Nutrition/Malnutrition Findings: Nutrition Notes Start: 08/18/19 11:32 Freq: Status: Active Protocol: Document 08/18/19 11:32 TONY (Rec: 08/18/19 12:03 TONY [id number]) Co-Sign 08/18/19 11:32 KH Nutrition Notes Need for Assessment generated from: MD Order,MST Initial or Follow up Assessment Current Diagnosis Acute Kidney Injury, Hypertension Other Pertinent Diagnosis Multiple sclerosis Current Diet Cardiac diet Labs/Tests BUN 56 Pertinent Medications NS 0.9% 100ml/hr Height 5 ft 5 in Weight 37.4 kg [place] Body Weight (kg) 56.81 BMI 13.7 Weight change and time frame Pt stated she didn't know how much wt she lost. Stated her UBW is 160lb. Pt lost 53% of her UBW. Current weight is from bedscale. Subjective/Other Information RD consult for malnutrition per MD. Pt didn't speak polish well and her daughter wasn't at bedside to translate . Pt stated her appetite was good and hasn't experienced any nausea or vomiting. Pt was being fed by pt tech at time of visit. Pt tech agreed that pt will benefit from mechanical soft diet. Burn Absent Trauma Absent GI Symptoms None Difficulty In Chewing Current % PO Poor (25-49%) Minimum of two criteria Yes Body Fat Depletion Moderate depletion (severe) Muscle Mass Moderate Depletion (severe) #1 Nutrition Diagnosis Malnutrition Etiology Multiple sclerosis As Evidenced by Signs and Symptoms Moderate body fat depletion and muscle mass depletion Is patient on ventilator? No Is Patient Ambulatory and/or Out of Bed No REE-([facility]-confined to bed) 1139.160 Kcal/Kg value to use for calculation 42 Approximate Energy Requirements Using 1571 kcal/Kg Calculation Used for Recommendations Kcal/kg Additional Notes Protein: 37-44g/kg (1-1.2g/kg) Fluid: 1ml/kcal Nutrition Intervention Change Diet Order: Change to mechanical soft cardiac diet Add Supplement/Snack (indicate name/kcal Ensure Enlive BID /protein ) Provides kCal: 700 Provides Protein (gm) 40 Goal #1 Meet at least 90% of energy and protein needs via PO and ONS intakes Anticipated Discharge Needs: Mechanical soft diet with cardiac modification Follow-Up By: 08/22/19 Additional Comments F/U for PO and ONS intakes.
[2019-08-21] MEDS: levETIRAcetam 500 MG in DEXTROSE 5% IN WATER 100 ML IV SCH (09:10)
[2019-08-21] MEDS: DOCUSATE SODIUM 100 MG CAP PO SCH ×2 (10:32→22:10)
[2019-08-21] MEDS: BACLOFEN 10 MG TAB PO SCH ×2 (10:32→22:05)
[2019-08-21] MEDS: HEPARIN 5,000 UNIT/1 ML VIAL SUB-Q SCH ×2 (10:32→22:05)
[2019-08-21] MEDS: cefTRIAXone/NS 1 GM/50 ML 1 GM/50 ML BAG IV SCH (10:32)
[2019-08-21] MEDS: clonazePAM 0.5 MG TAB PO SCH ×2 (10:32→22:08)
[2019-08-21] MEDS: K-PHOS NEUTRAL 250 MG TAB PO SCH ×4 (10:33→22:05)
[2019-08-21] MEDS ORDERED: levETIRAcetam 250 MG in DEXTROSE 5% IN WATER (50 ML) 50 ML IV ONE (11:00)
--- NOTE | 2019-08-21 14:22 | Progress Note ---
Assessment and Plan - Patient Problems (1) ROBB (acute kidney injury) Current Visit: Yes Status: Acute Plan to address problem: Acute kidney injury improving been followed by nephrology Dr. Oliver. (2) Convulsion Current Visit: Yes Status: Acute Plan to address problem: Patient with another seizure today. We'll increase Keppra to 750 mg twice a day. (3) Failure to thrive Current Visit: Yes Status: Acute Plan to address problem: Overall failure to thrive appears to be secondary to MS flare. Awaiting long term placement. Patient's History Interval history: Hospital course complicated by patient having an active seizure this morning. Was somewhat postictal my arrival. Patient was able to communicate needs. States she felt dizzy prior to the seizure. Sitter both in Occitan and Uzbek. Nurse at bedside. Patient still awaiting rehabilitation. Case management consult. Hospitalist Physical - Constitutional Vitals: Temp Pulse Resp BP Pulse Ox 98.2 F 76 18 110/69 100 08/21/19 12:36 08/21/19 12:36 08/21/19 12:36 08/21/19 12:36 08/21/19 12:36 General appearance: Present: no acute distress, cachectic, disheveled, other (anorexic-appearing) - EENT Eyes: Present: PERRL, EOM intact ENT: hearing intact, clear oral mucosa, dentition normal, hearing decreased - Neck Neck: Present: supple, normal ROM. Absent: enlarged thyroid, masses or JVD, cervical LAD, carotid bruits - Respiratory Respiratory effort: normal Respiratory: bilateral: CTA - Cardiovascular Rhythm: regular - Extremities Extremities: no ischemia, pulses symmetrical, No edema, normal temperature Peripheral Pulses: within normal limits - Abdominal General gastrointestinal: soft, tender, non-distended, distended, normal bowel sounds - Integumentary Integumentary: Present: clear, warm, dry - Psychiatric Psychiatric: appropriate mood/affect, intact judgment & insight - Neurologic Neurologic: CNII-XII intact, moves all extremities Results - Labs CBC & Chem 7: 08/20/19 04:58 08/20/19 04:58 Labs: Laboratory Last Values WBC 5.9 K/mm3 (4.5-11.0) 08/20/19 04:58 RBC 4.11 M/mm3 (3.65-5.03) 08/20/19 04:58 Hgb 11.5 gm/dl (10.1-14.3) 08/20/19 04:58 Hct 33.8 % (30.3-42.9) 08/20/19 04:58 MCV 82 fl (79-97) 08/20/19 04:58 MCH 28 pg (28-32) 08/20/19 04:58 MCHC 34 % (30-34) 08/20/19 04:58 RDW 16.6 % (13.2-15.2) H 08/20/19 04:58 Plt Count 193 K/mm3 (140-440) 08/20/19 04:58 Lymph % (Auto) 20.5 % (13.4-35.0) 08/18/19 07:20 [place] % (Auto) 4.7 % (0.0-7.3) 08/18/19 07:20 Eos % (Auto) 0.0 % (0.0-4.3) 08/18/19 07:20 Baso % (Auto) 1.3 % (0.0-1.8) 08/18/19 07:20 Lymph # 2.7 K/mm3 (1.2-5.4) 08/18/19 07:20 [place] # 0.6 K/mm3 (0.0-0.8) 08/18/19 07:20 Eos # 0.0 K/mm3 (0.0-0.4) 08/18/19 07:20 Baso # 0.2 K/mm3 (0.0-0.1) H 08/18/19 07:20 Add Manual Diff Complete 08/17/19 18:00 Total Counted 100 08/17/19 18:00 Seg Neutrophils % 73.5 % (40.0-70.0) H 08/18/19 07:20 Seg Neuts % (Manual) 87.0 % (40.0-70.0) H 08/17/19 18:00 Band Neutrophils % 0 % 08/17/19 18:00 Lymphocytes % (Manual) 10.0 % (13.4-35.0) L 08/17/19 18:00 Reactive Lymphs % (Man) 0 % 08/17/19 18:00 Monocytes % (Manual) 3.0 % (0.0-7.3) 08/17/19 18:00 Eosinophils % (Manual) 0 % (0.0-4.3) 08/17/19 18:00 Basophils % (Manual) 0 % (0.0-1.8) 08/17/19 18:00 Metamyelocytes % 0 % 08/17/19 18:00 Myelocytes % 0 % 08/17/19 18:00 Promyelocytes % 0 % 08/17/19 18:00 Blast Cells % 0 % 08/17/19 18:00 Nucleated RBC % Not Reportable 08/17/19 18:00 Seg Neutrophils # 9.7 K/mm3 (1.8-7.7) H 08/18/19 07:20 Seg Neutrophils # Man 18.4 K/mm3 (1.8-7.7) H 08/17/19 18:00 Band Neutrophils # 0.0 K/mm3 08/17/19 18:00 Lymphocytes # (Manual) 2.1 K/mm3 (1.2-5.4) 08/17/19 18:00 Abs React Lymphs (Man) 0.0 K/mm3 08/17/19 18:00 Monocytes # (Manual) 0.6 K/mm3 (0.0-0.8) 08/17/19 18:00 Eosinophils # (Manual) 0.0 K/mm3 (0.0-0.4) 08/17/19 18:00 Basophils # (Manual) 0.0 K/mm3 (0.0-0.1) 08/17/19 18:00 Metamyelocytes # 0.0 K/mm3 08/17/19 18:00 Myelocytes # 0.0 K/mm3 08/17/19 18:00 Promyelocytes # 0.0 K/mm3 08/17/19 18:00 Blast Cells # 0.0 K/mm3 08/17/19 18:00 WBC Morphology Not Reportable 08/17/19 18:00 Hypersegmented Neuts Not Reportable 08/17/19 18:00 Hyposegmented Neuts Not Reportable 08/17/19 18:00 Hypogranular Neuts Not Reportable 08/17/19 18:00 Smudge Cells Not Reportable 08/17/19 18:00 Toxic Granulation Not Reportable 08/17/19 18:00 Toxic Vacuolation Not Reportable 08/17/19 18:00 Dohle Bodies Not Reportable 08/17/19 18:00 Pelger-Huet Anomaly Not Reportable 08/17/19 18:00 Leroy Rods Not Reportable 08/17/19 18:00 Platelet Estimate Not Reportable 08/17/19 18:00 Clumped Platelets 1+ 08/17/19 18:00 Plt Clumps, EDTA Not Reportable 08/17/19 18:00 Large Platelets Not Reportable 08/17/19 18:00 Giant Platelets Not Reportable 08/17/19 18:00 Platelet Satelliting Not Reportable 08/17/19 18:00 Plt Morphology Comment Not Reportable 08/17/19 18:00 RBC Morphology Normal 08/17/19 18:00 Dimorphic RBCs Not Reportable 08/17/19 18:00 Polychromasia Not Reportable 08/17/19 18:00 Hypochromasia Not Reportable 08/17/19 18:00 Poikilocytosis Not Reportable 08/17/19 18:00 Anisocytosis Not Reportable 08/17/19 18:00 Microcytosis Not Reportable 08/17/19 18:00 Macrocytosis Not Reportable 08/17/19 18:00 Spherocytes Not Reportable 08/17/19 18:00 Pappenheimer Bodies Not Reportable 08/17/19 18:00 Sickle Cells Not Reportable 08/17/19 18:00 Target Cells Not Reportable 08/17/19 18:00 Tear Drop Cells Not Reportable 08/17/19 18:00 Ovalocytes Not Reportable 08/17/19 18:00 Helmet Cells Not Reportable 08/17/19 18:00 [place] Bodies Not Reportable 08/17/19 18:00 [place] Rings Not Reportable 08/17/19 18:00 Megan Cells Not Reportable 08/17/19 18:00 Bite Cells Not Reportable 08/17/19 18:00 Crenated Cell Not Reportable 08/17/19 18:00 Elliptocytes Not Reportable 08/17/19 18:00 Acanthocytes (Spur) Not Reportable 08/17/19 18:00 Rouleaux Not Reportable 08/17/19 18:00 Hemoglobin C Crystals Not Reportable 08/17/19 18:00 Schistocytes Not Reportable 08/17/19 18:00 Malaria parasites Not Reportable 08/17/19 18:00 [place] Bodies Not Reportable 08/17/19 18:00 Hem Pathologist Commnt No 08/17/19 18:00 APTT 21.9 Sec. (24.2-36.6) L 08/17/19 Unknown Sodium 142 mmol/L (137-145) 08/20/19 04:58 Potassium 3.6 mmol/L (3.6-5.0) 08/20/19 04:58 Chloride 106.4 mmol/L (98-107) 08/20/19 04:58 Carbon Dioxide 20 mmol/L (22-30) L 08/20/19 04:58 Anion Gap 19 mmol/L 08/20/19 04:58 BUN 10 mg/dL (7-17) 08/20/19 04:58 Creatinine 0.3 mg/dL (0.7-1.2) L 08/20/19 04:58 Estimated GFR > 60 ml/min 08/20/19 04:58 BUN/Creatinine Ratio 33 % 08/20/19 04:58 Glucose 74 mg/dL (65-100) 08/20/19 04:58 POC Glucose 101 (70-105) 08/17/19 14:34 Lactic Acid 1.50 mmol/L (0.7-2.0) 08/17/19 Unknown Calcium 9.0 mg/dL (8.4-10.2) 08/20/19 04:58 Phosphorus 1.80 mg/dL (2.5-4.5) L 08/19/19 13:24 Magnesium 2.30 mg/dL (1.7-2.3) 08/18/19 07:20 Total Bilirubin 0.30 mg/dL (0.1-1.2) 08/17/19 Unknown AST 58 units/L (5-40) H 08/17/19 Unknown ALT 56 units/L (7-56) 08/17/19 Unknown Alkaline Phosphatase 82 units/L (35-129) 08/17/19 Unknown Total Creatine Kinase 361 units/L (30-135) H 08/18/19 07:20 CK-MB (CK-2) 6.8 ng/mL (0.0-4.0) H 08/18/19 07:20 CK-MB (CK-2) Rel Index 1.8 (0-4) 08/18/19 07:20 Troponin T 0.011 ng/mL (0.00-0.029) 08/18/19 07:20 Total Protein 7.3 g/dL (6.3-8.2) 08/17/19 Unknown Albumin 4.4 g/dL (3.9-5) 08/17/19 Unknown Albumin/Globulin Ratio 1.5 % 08/17/19 Unknown Triglycerides 61 mg/dL (2-149) 08/17/19 Unknown Cholesterol 178 mg/dL (50-199) 08/17/19 Unknown LDL Cholesterol Direct 83 mg/dL (50-130) 08/17/19 Unknown HDL Cholesterol 96 mg/dL (40-59) H 08/17/19 Unknown Cholesterol/HDL Ratio 1.85 % 08/17/19 Unknown TSH 0.762 mlU/mL (0.270-4.200) 08/17/19 Unknown Urine Color Yellow (Yellow) 08/17/19 Unknown Urine Turbidity Cloudy (Clear) 08/17/19 Unknown Urine pH 5.0 (5.0-7.0) 08/17/19 Unknown Ur Specific [place] 1.018 (1.003-1.030) 08/17/19 Unknown Urine Protein 100 mg/dl mg/dL (Negative) 08/17/19 Unknown Urine Glucose (UA) 50 mg/dL (Negative) 08/17/19 Unknown Urine Ketones 20 mg/dL (Negative) 08/17/19 Unknown Urine Blood Sm (Negative) 08/17/19 Unknown Urine Nitrite Neg (Negative) 08/17/19 Unknown Urine Bilirubin Neg (Negative) 08/17/19 Unknown Urine Urobilinogen < 2.0 mg/dL (<2.0) 08/17/19 Unknown Ur Leukocyte Esterase Sm (Negative) 08/17/19 Unknown Urine WBC (Auto) 20.0 /HPF (0.0-6.0) H 08/17/19 Unknown Urine RBC (Auto) 12.0 /HPF (0.0-6.0) 08/17/19 Unknown U Epithel Cells (Auto) 1.0 /HPF (0-13.0) 08/17/19 Unknown Urine Bacteria (Auto) 1+ /HPF (Negative) 08/17/19 Unknown Urine WBC Clumps 3+ /HPF 08/17/19 Unknown Hyaline Casts 10 /LPF 08/17/19 Unknown Urine Mucus 2+ /HPF 08/17/19 Unknown Urine Yeast (Budding) 3+ /HPF 08/17/19 Unknown Urine Sperm Few /HPF (ORTHOPEDIC DESIGNER) 08/17/19 Unknown Salicylates < 0.3 mg/dL (2.8-20.0) L 08/17/19 Unknown Acetaminophen < 5.0 ug/mL (10.0-30.0) L 08/17/19 Unknown Active Medications - Current Medications Current Medications: Generic Name Dose Route Start Last Admin Trade Name Freq PRN Reason Stop Dose Admin Acetaminophen 650 mg 08/17/19 20:36 08/18/19 10:28 Tylenol PO 650 mg Q4H PRN Administration Pain MILD(1-3)/Fever >100.5/LOYA Baclofen 10 mg 08/18/19 22:00 08/21/19 10:32 Lioresal PO 10 mg BID ARIA Administration Clonazepam 0.5 mg 08/18/19 22:00 08/21/19 10:32 Klonopin PO 0.5 mg BID ARIA Administration Docusate Sodium 100 mg 08/17/19 22:00 08/21/19 10:32 Colace PO 100 mg BID ARIA Administration Heparin Sodium (Porcine) 5,000 unit 08/17/19 22:00 08/21/19 10:32 Heparin SUB-Q 5,000 unit Q12HR RAIA Administration Sodium Chloride 1,000 mls @ 100 mls/hr 08/17/19 21:00 08/20/19 21:27 Nacl 0.9% 1000 Ml IV 100 mls/hr DIRECT ARIA Administration Ceftriaxone Sodium 1 gm in 50 mls @ 100 mls/hr 08/19/19 18:00 08/21/19 10:32 Rocephin/Ns 1 Gm/50 Ml IV 100 mls/hr Q24HR ARIA Administration Protocol Levetiracetam 750 mg/ Dextrose 107.5 mls @ 400 mls/hr 08/21/19 22:00 IV Q12HR ARIA Ondansetron HCl 4 mg 08/17/19 20:36 Zofran IV Q8H PRN Nausea And Vomiting Sodium Chloride 10 ml 08/17/19 22:00 08/21/19 10:33 Sodium Chloride Flush Syringe 10 Ml IV 10 ml BID ARIA Administration Sodium Chloride 10 ml 08/17/19 20:36 Sodium Chloride Flush Syringe 10 Ml IV PRN PRN LINE FLUSH Sodium Phosphate 250 mg 08/20/19 10:00 08/21/19 10:33 K-Phos Neutral PO 250 mg QID ARIA Administration Nutrition/Malnutrition Assess - Dietary Evaluation Nutrition/Malnutrition Findings: Nutrition Notes Start: 08/18/19 11:32 Freq: Status: Active Protocol: Document 08/18/19 11:32 TONY (Rec: 08/18/19 12:03 TONY [id number]) Co-Sign 08/18/19 11:32 KH Nutrition Notes Need for Assessment generated from: MD Order,MST Initial or Follow up Assessment Current Diagnosis Acute Kidney Injury, Hypertension Other Pertinent Diagnosis Multiple sclerosis Current Diet Cardiac diet Labs/Tests BUN 56 Pertinent Medications NS 0.9% 100ml/hr Height 5 ft 5 in Weight 37.4 kg Carter Body Weight (kg) 56.81 BMI 13.7 Weight change and time frame Pt stated she didn't know how much wt she lost. Stated her UBW is 160lb. Pt lost 53% of her UBW. Current weight is from [facility]. Subjective/Other Information RD consult for malnutrition per MD. Pt didn't speak vietnamese well and her daughter wasn't at bedside to translate . Pt stated her appetite was good and hasn't experienced any nausea or vomiting. Pt was being fed by pt tech at time of visit. Pt tech agreed that pt will benefit from mechanical soft diet. Burn Absent Trauma Absent GI Symptoms None Difficulty In Chewing Current % PO Poor (25-49%) Minimum of two criteria Yes Body Fat Depletion Moderate depletion (severe) Muscle Mass Moderate Depletion (severe) #1 Nutrition Diagnosis Malnutrition Etiology Multiple sclerosis As Evidenced by Signs and Symptoms Moderate body fat depletion and muscle mass depletion Is patient on ventilator? No Is Patient Ambulatory and/or Out of Bed No REE-([facility]-confined to bed) 1139.160 Kcal/Kg value to use for calculation 42 Approximate Energy Requirements Using 1571 kcal/Kg Calculation Used for Recommendations Kcal/kg Additional Notes Protein: 37-44g/kg (1-1.2g/kg) Fluid: 1ml/kcal Nutrition Intervention Change Diet Order: Change to mechanical soft cardiac diet Add Supplement/Snack (indicate name/kcal Ensure Enlive BID /protein ) Provides kCal: 700 Provides Protein (gm) 40 Goal #1 Meet at least 90% of energy and protein needs via PO and ONS intakes Anticipated Discharge Needs: Mechanical soft diet with cardiac modification Follow-Up By: 08/22/19 Additional Comments F/U for PO and ONS intakes.
[2019-08-21] MEDS: SODIUM CHLORIDE 0.9% 1000 ML 1,000 ML IV SCH (19:37)
[2019-08-21] MEDS ORDERED: LORazepam 2 MG/ML VIAL IV ONE ×2 (20:36→21:00)
[2019-08-21] MEDS: levETIRAcetam 750 MG in DEXTROSE 5% IN WATER 100 ML IV SCH ×2 (20:40→21:54)
[2019-08-22] MEDS: SODIUM CHLORIDE 0.9% 1000 ML 1,000 ML IV SCH (06:30)
[2019-08-22] MEDS: clonazePAM 0.5 MG TAB PO SCH (10:24)
[2019-08-22] MEDS: HEPARIN 5,000 UNIT/1 ML VIAL SUB-Q SCH (10:24)
[2019-08-22] MEDS: DOCUSATE SODIUM 100 MG CAP PO SCH (10:24)
[2019-08-22] MEDS: BACLOFEN 10 MG TAB PO SCH (10:24)
[2019-08-22] MEDS: levETIRAcetam 750 MG in DEXTROSE 5% IN WATER 100 ML IV SCH (10:24)
[2019-08-22] MEDS: cefTRIAXone/NS 1 GM/50 ML 1 GM/50 ML BAG IV SCH (10:25)
--- NOTE | 2019-08-22 12:55 | Discharge Summary ---
Providers - Providers Date of Admission: 08/17/19 19:49 Date of discharge: 08/22/19 Attending physician: FERCHO ALFORD 08/17/19 15:16 Consult to Case Management [CONS] Urgent Services Needed at Discharge: Medical Referral Coordinator Notified:: danisha call back 08/17/19 20:35 Consult to Physician [CONS] Routine Comment: Consulting Provider: AFUA BURGOS Physician Instructions: Reason For Exam: ROBB ??CKD 08/17/19 20:50 Consult to Dietitian/Nutrition [CONS] Routine Physician Instructions: Reason For Exam: Reason for Consult: Malnutrition 08/17/19 22:21 Consult to Physician [CONS] Routine Comment: Consulting Provider: LEN HUNT Physician Instructions: Reason For Exam: hx MS, c/o ble twitching, left facial twitching 08/18/19 17:45 Occupational Therapy Evaluate and Treat [CONS] Routine Comment: Reason For Exam: ADLs evaluation Physical Therapy Evaluation and Treat [CONS] Routine Comment: Reason For Exam: gait evaluation/ambulatory dysfunction Primary care physician: WASHER OFF Hospitalization Condition: Fair Pertinent studies: MRI brain no parenchymal lesions. Disposition: [id number]/[place]-03 SNF [facility] CERT - Discharge Diagnoses (1) ROBB (acute kidney injury) Status: Acute Comment: Recent with acute kidney injury secondary to vasomotor nephropathy prerenal azotemia. Has resolved with IV hydration. (2) Convulsion Status: Acute Comment: Seizure disorder fairly well controlled Per 750 mg twice a day with keppre continued in the half-way setting. (3) Failure to thrive Status: Acute Comment: Failure to thrive physical exam suggestive of progressive MS. Will benefit from acute rehabilitation facility and further rehabilitation. (4) Malnutrition Status: Acute Comment: Reason with severe protein deficiency malnutrition secondary to decreased caloric intake present on admission. (5) SIRS (systemic inflammatory response syndrome) Status: Acute Comment: Patient with sepsis SIRS secondary to UTI treated with IV antibiotics and resolved. Core Measure Documentation - Palliative Care Palliative Care/ Comfort Measures: Not Applicable - Core Measures Any of the following diagnoses?: none Exam - Constitutional Vitals: Temp Pulse Resp BP Pulse Ox 98.0 F 74 20 127/76 100 08/22/19 03:44 08/22/19 03:44 08/22/19 03:44 08/22/19 03:44 11/25/19 03:44 General appearance: Present: no acute distress, cachectic - EENT Eyes: Present: PERRL ENT: hearing intact, clear oral mucosa - Neck Neck: Present: supple, normal ROM - Respiratory Respiratory effort: normal Respiratory: bilateral: CTA - Cardiovascular Heart Sounds: Present: S1 & S2. Absent: rub, click - Extremities Extremities: pulses symmetrical, No edema Peripheral Pulses: within normal limits - Abdominal General gastrointestinal: Present: soft, non-tender, non-distended, normal bowel sounds Female genitourinary: Present: normal - Integumentary Integumentary: Present: clear, warm, dry - Musculoskeletal Musculoskeletal: gait normal, strength equal bilaterally - Psychiatric Psychiatric: appropriate mood/affect, intact judgment & insight - Neurologic Neurologic: CNII-XII intact, moves all extremities Plan Activity: fall precautions Weight Bearing Status: Weight Bear as Tolerated Diet: regular, low protein, other (low salt) Plan of Treatment: discharge to SNF Follow up with: PRIMARY CARE, [Primary Care Provider] - 3-5 Days
[2019-08-22 16:55] VITALS: BP 130/86
== END 2019-08-22 17:14 | DRG 871 ==
LOC: ED 13:24 → 4A 19:49
PROVIDERS: ADMIT Internal Medicine; ATTEND Internal Medicine
DX: A41.9 Sepsis, unspecified organism (principal); E43 Unspecified severe protein-calorie malnutrition; I21.A1 Myocardial infarction type 2; N17.0 Acute kidney failure with tubular necrosis; N39.0 Urinary tract infection, site not specified; Z68.1 Body mass index [BMI] 19.9 or less, adult; G35 Multiple sclerosis; I10 Essential (primary) hypertension; G40.909 Epilepsy, unspecified, not intractable, without status epilepticus; R80.8 Other proteinuria; E83.39 Other disorders of phosphorus metabolism; R00.1 Bradycardia, unspecified; R53.81 Other malaise; F41.9 Anxiety disorder, unspecified; Z79.899 Other long term (current) drug therapy; Z74.01 Bed confinement status
CPT/HCPCS: 36415; 70450; 70553; 71045; 80048; 80053; 80061; 80320; 81001; 82140; 82550; 82553; 82962; 83735; 84100; 84443; 84484; 85007; 85025; 85027; 85730; 87040; 87086; 93005; 93010; 93306; G0378; A9577; G0480; J0696; J1450; J1644; J1953; J2060; J7030

== ENCOUNTER 2020-05-09 17:18 | Observation (INO) | payer MEDICARE ==
[2020-05-09 19:23] LABS: Basophils % (Auto) 0.5 % (0.0-1.8); Eosinophils # (Auto) 0.1 K/mm3 (0.0-0.4); Eosinophils % (Auto) 0.9 % (0.0-4.3); Hemoglobin 12.9 gm/dl (10.1-14.3); Lymphocytes # (Auto) 1.8 K/mm3 (1.2-5.4); Lymphocytes % (Auto) 25.2 % (13.4-35.0); Mean Corpuscular HGB Conc 34 % (30-34); Mean Corpuscular Volume 84 fl (79-97); Monocytes # (Auto) 0.2 K/mm3 (0.0-0.8); Monocytes % (Auto) 3.4 % (0.0-7.3); Platelet Count 210 K/mm3 (140-440); Red Blood Count 4.52 M/mm3 (3.65-5.03); Red Cell Distribution Width 13.2 % (13.2-15.2)
[2020-05-09 19:35] LABS: INR 1.01 (0.87-1.13)
[2020-05-09 19:36] LABS: Partial Thromboplastin Time 29.3 Sec. (24.2-36.6)
[2020-05-09 19:44] LABS: Alanine Aminotransferase 19 units/L (7-56); Albumin 4.1 g/dL (3.9-5); Blood Urea Nitrogen 19 mg/dL (7-17); Hemolysis Index 19
[2020-05-09 19:47] LABS: BUN/Creatinine Ratio 48
--- NOTE | 2020-05-09 19:49 | XRay Report ---
CHEST 1 VIEW INDICATION: cough. COMPARISON: None FINDINGS: SUPPORT DEVICES: None. HEART: Within normal limits. LUNGS/PLEURA: No acute air space or interstitial disease. ADDITIONAL FINDINGS: None. IMPRESSION: 1. No acute findings. Signer Name: Aldo Gregorio MD Signed: 05/09/2020 7:45 PM Workstation Name: [id number]
--- NOTE | 2020-05-09 20:18 | Emergency Department Report ---
ED General Adult HPI - General Chief complaint: Weakness Stated complaint: HYPERTENSION,FACIAL EDEMA Time Seen by Provider: 05/09/20 18:10 Source: EMS Mode of arrival: Stretcher Limitations: Language Barrier - History of Present Illness Initial comments: Patient is Moh[place]-speaking does not american sign language interpreter was used. Patient presents to the emergency department with a chief complaint of right-sided weakness that started approximately 4 days to 7 days ago. Patient states that she noticed that her right side of her face is not functioning like he normally does. Patient also complains of slurred speech. Patient also complains of chest pain x7 days as well. 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 -: Gradual Location: chest Severity scale (0 -10): 1 Quality: aching Consistency: constant Improves with: none Worsens with: none Associated Symptoms: denies other symptoms Treatments Prior to Arrival: none - Related Data Home Medications Medication Instructions Recorded Confirmed Last Taken LORazepam [Lorazepam] 1 mg PO QDAY 08/17/19 05/09/20 Unknown Baclofen 20 mg PO BID 05/09/20 05/09/20 Unknown Keppra TAB 1,000 mg PO BID 05/09/20 05/09/20 Unknown clonazePAM 1 mg PO TID 05/09/20 05/09/20 Unknown Previous Rx's Medication Instructions Recorded Last Taken Type atenoloL [Tenormin] 25 mg PO DAILY #30 tab 12/15/17 Unknown Rx Docusate Sodium [Colace CAP] 100 mg PO BID capsule 08/22/19 Unknown Rx Allergies Allergy/AdvReac Type Severity Reaction Status Date / Time No Known Allergies Allergy Verified 05/09/20 17:51 ED Review of Systems ROS: Stated complaint: HYPERTENSION,FACIAL EDEMA Other details as noted in HPI Comment: Unobtainable due to pts medical conditions Constitutional: weakness. denies: chills, fever Eyes: denies: eye pain, eye discharge, vision change ENT: denies: ear pain, throat pain Respiratory: denies: cough, shortness of breath, wheezing Cardiovascular: denies: chest pain, palpitations Endocrine: no symptoms reported Gastrointestinal: denies: abdominal pain, nausea, diarrhea Genitourinary: denies: urgency, dysuria, discharge Musculoskeletal: denies: back pain, joint swelling, arthralgia Skin: denies: rash, lesions Neurological: denies: headache, weakness, paresthesias Psychiatric: denies: anxiety, depression Hematological/Lymphatic: denies: easy bleeding, easy bruising ED Past Medical Hx - Past Medical History Hx Hypertension: Yes Additional medical history: MS - Surgical History Additional Surgical History: Unknown - Social History Smoking Status: Never Smoker Substance Use Type: None - Medications Home Medications: Home Medications Medication Instructions Recorded Confirmed Last Taken Type atenoloL [Tenormin] 25 mg PO DAILY #30 tab 12/15/17 05/09/20 Unknown Rx LORazepam [Lorazepam] 1 mg PO QDAY 08/17/19 05/09/20 Unknown History Docusate Sodium [Colace CAP] 100 mg PO BID capsule 08/22/19 05/09/20 Unknown Rx Baclofen 20 mg PO BID 05/09/20 05/09/20 Unknown History Keppra TAB 1,000 mg PO BID 05/09/20 05/09/20 Unknown History clonazePAM 1 mg PO TID 05/09/20 05/09/20 Unknown History ED Physical Exam - General Limitations: Language Barrier, Other (Keyboard Specialist used for translation and their number is [id number]) General appearance: alert, in no apparent distress - Head Head exam: Present: atraumatic, normocephalic - Eye Eye exam: Present: normal appearance, PERRL, EOMI - ENT ENT exam: Present: mucous membranes dry - Neck Neck exam: Present: normal inspection - Respiratory Respiratory exam: Present: normal lung sounds bilaterally. Absent: respiratory distress - Cardiovascular Cardiovascular Exam: Present: regular rate, normal rhythm. Absent: systolic murmur, diastolic murmur, rubs, gallop - GI/Abdominal GI/Abdominal exam: Present: soft, normal bowel sounds. Absent: distended, tenderness - Extremities Exam Extremities exam: Present: other (Contractures of the bilateral lower extremities and is not able to move them) - Back Exam Back exam: Present: normal inspection - Neurological Exam Neurological exam: Present: alert, oriented X3, CN II-XII intact, other (Patient has right-sided facial droop) - Psychiatric Psychiatric exam: Present: normal affect, normal mood - Skin Skin exam: Present: warm, dry, intact, normal color. Absent: rash ED Course Vital Signs 05/09/20 05/09/20 05/09/20 17:51 18:05 18:10 Temperature 98.4 F Pulse Rate 99 H 78 Respiratory 20 Rate Blood Pressure 185/105 O2 Sat by Pulse 98 98 Oximetry 05/09/20 05/09/20 05/09/20 19:00 20:00 21:00 Temperature Pulse Rate 86 82 Respiratory 15 22 Rate Blood Pressure 157/98 137/86 141/87 O2 Sat by Pulse 100 Oximetry 05/09/20 22:00 Temperature Pulse Rate 81 Respiratory Rate Blood Pressure 142/98 O2 Sat by Pulse 98 Oximetry ED Medical Decision Making - Lab Data Result diagrams: 05/09/20 19:00 05/09/20 19:00 Lab Results 05/09/20 05/09/20 05/09/20 Range/Units 19:00 19:00 19:00 WBC 7.2 (4.5-11.0) K/mm3 RBC 4.52 (3.65-5.03) M/mm3 Hgb 12.9 (10.1-14.3) gm/dl Hct 38.0 (30.3-42.9) % MCV 84 (79-97) fl MCH 29 (28-32) pg MCHC 34 (30-34) % RDW 13.2 (13.2-15.2) % Plt Count 210 (140-440) K/mm3 Lymph % (Auto) 25.2 (13.4-35.0) % [place] % (Auto) 3.4 (0.0-7.3) % Eos % (Auto) 0.9 (0.0-4.3) % Baso % (Auto) 0.5 (0.0-1.8) % Lymph # 1.8 (1.2-5.4) K/mm3 [place] # 0.2 (0.0-0.8) K/mm3 Eos # 0.1 (0.0-0.4) K/mm3 Baso # 0.0 (0.0-0.1) K/mm3 Seg Neutrophils % 70.0 (40.0-70.0) % Seg Neutrophils # 5.1 (1.8-7.7) K/mm3 PT 13.5 (12.2-14.9) Sec. INR 1.01 (0.87-1.13) APTT 29.3 (24.2-36.6) Sec. Sodium 142 (137-145) mmol/L Potassium 3.8 (3.6-5.0) mmol/L Chloride 102.5 (98-107) mmol/L Carbon Dioxide 28 (22-30) mmol/L Anion Gap 15 mmol/L BUN 19 H (7-17) mg/dL Creatinine 0.4 L (0.6-1.2) mg/dL Estimated GFR > 60 ml/min BUN/Creatinine Ratio 48 % Glucose 119 H (65-100) mg/dL Calcium 10.0 (8.4-10.2) mg/dL Total Bilirubin 0.20 (0.1-1.2) mg/dL AST 28 (5-40) units/L ALT 19 (7-56) units/L Alkaline Phosphatase 106 (35-129) units/L Troponin T (0.00-0.029) ng/mL NT-Pro-B Natriuret Pep (0-900) pg/mL Total Protein 7.7 (6.3-8.2) g/dL Albumin 4.1 (3.9-5) g/dL Albumin/Globulin Ratio 1.1 % 05/09/20 05/09/20 Range/Units 19:00 20:35 WBC (4.5-11.0) K/mm3 RBC (3.65-5.03) M/mm3 Hgb (10.1-14.3) gm/dl Hct (30.3-42.9) % MCV (79-97) fl MCH (28-32) pg MCHC (30-34) % RDW (13.2-15.2) % Plt Count (140-440) K/mm3 Lymph % (Auto) (13.4-35.0) % [place] % (Auto) (0.0-7.3) % Eos % (Auto) (0.0-4.3) % Baso % (Auto) (0.0-1.8) % Lymph # (1.2-5.4) K/mm3 [place] # (0.0-0.8) K/mm3 Eos # (0.0-0.4) K/mm3 Baso # (0.0-0.1) K/mm3 Seg Neutrophils % (40.0-70.0) % Seg Neutrophils # (1.8-7.7) K/mm3 PT (12.2-14.9) Sec. INR (0.87-1.13) APTT (24.2-36.6) Sec. Sodium (137-145) mmol/L Potassium (3.6-5.0) mmol/L Chloride (98-107) mmol/L Carbon Dioxide (22-30) mmol/L Anion Gap mmol/L BUN (7-17) mg/dL Creatinine (0.6-1.2) mg/dL Estimated GFR ml/min BUN/Creatinine Ratio % Glucose (65-100) mg/dL Calcium (8.4-10.2) mg/dL Total Bilirubin (0.1-1.2) mg/dL AST (5-40) units/L ALT (7-56) units/L Alkaline Phosphatase (35-129) units/L Troponin T < 0.010 < 0.010 (0.00-0.029) ng/mL NT-Pro-B Natriuret Pep 162.8 (0-900) pg/mL Total Protein (6.3-8.2) g/dL Albumin (3.9-5) g/dL Albumin/Globulin Ratio % - Radiology Data Radiology results: report reviewed - Medical Decision Making Results discussed with patient Critical care attestation.: If time is entered above; I have spent that time in minutes in the direct care of this critically ill patient, excluding procedure time. ED Disposition Clinical Impression: Right sided weakness, Facial droop Disposition: OP ADMIT IP TO THIS HOSP Is pt being admited?: Yes Does the pt Need Aspirin: Yes Condition: Fair Referrals: PRIMARY CARE, [Primary Care Provider] - 3-5 Days - Assessment Assessment Interval: Baseline - Level of Consciousness 1a. Level of Consciousness: alert/keenly responsive - LOC Questions 1b. LOC Questions: answers both correctly - LOC Command 1c. LOC Commands: performs tasks correctly - Best Gaze 2. Best Gaze: normal - Visual 3. Visual: no visual loss - Facial Palsy 4. Facial Palsy: minor paralysis - Motor Arm 5a. Motor Arm Left: no drift 5b. Motor Arm Right: no drift - Motor Leg 6a. Motor Leg Left: no movement 6b. Motor Leg Right: no movement - Limb Ataxia 7. Limb Ataxia: absent - Sensory 8. Sensory: normal - Best Language 9. Best Language: no aphasia - Dysarthria 10. Dysarthria: normal - Extinction and Inattention 11. Extinction/Inattention: no abnormality - Scoring Total Score: 9 Stroke Severity: Moderate Stroke
--- NOTE | 2020-05-09 20:57 | Cat Scan Report ---
NONENHANCED CT SCAN OF THE HEAD: INDICATION / CLINICAL INFORMATION: 60 years Female; slurred speech. TECHNIQUE: Routine CT head without contrast. All CT scans at this location are performed using CT dos e reduction for ALARA by means of automated exposure control. COMPARISON: MR scan of the brain from 08/17/[address] scan of the head from 08/17/2019 (limited due to motion r elated artifacts) FINDINGS: BRAIN / INTRACRANIAL CONTENTS: No acute hemorrhage, mass effect, midline shift, hydrocephalus, or ac [place], large territorial infarct. No chronic infarct or focal atrophy. Bilateral symmetric prominent ex tracerebral space is seen bifrontally; this remains unchanged since the previous MRI scan and CT scan . CRANIOCERVICAL JUNCTION: No significant abnormality. ORBITS: No significant abnormality of visualized orbits. SINUSES / MASTOIDS: No significant abnormality of the visualized paranasal sinuses or mastoid air kajal ls. ADDITIONAL FINDINGS: None. IMPRESSION: No acute focal parenchymal lesion in the brain. CT findings remain unchanged. Signer Name: Fatou Recinos MD Signed: 05/09/2020 8:53 PM Workstation Name: [id number]
[2020-05-09] MEDS ORDERED: BACLOFEN 20 MG PO SCH (22:00)
[2020-05-09] MEDS ORDERED: KEPPRA 1000 MG PO SCH (22:00)
[2020-05-09] MEDS: atenoloL 25 MG TAB PO SCH (22:40)
[2020-05-09] MEDS: LORazepam 1 MG TAB PO SCH (22:40)
[2020-05-09] MEDS: BACLOFEN 10 MG TAB PO SCH (22:41)
[2020-05-09] MEDS: DOCUSATE SODIUM 100 MG CAP PO SCH ×2 (22:41→22:42)
[2020-05-09] MEDS: levETIRAcetam 500 MG TAB PO SCH (22:41)
[2020-05-09] MEDS ORDERED: ASPIRIN 81 MG TAB CHEW PO ONE (22:48)
[2020-05-09] MEDS ORDERED: ACETAMINOPHEN 325 MG TAB PO PRN (23:57)
[2020-05-09] MEDS ORDERED: ONDANSETRON 4 MG/2 ML INJ IV PRN (23:59)
[2020-05-10] MEDS ORDERED: ASPIRIN 325 MG TAB ONE (00:02)
[2020-05-10] MEDS ORDERED: ASPIRIN 81 MG TAB CHEW ONE (00:04)
[2020-05-10 01:12] LABS: Bacteria,Urine 2+ /HPF (Negative); Bilirubin,Urine NEG (Negative); Blood,Urine SM (Negative); Color,Urine Yellow (Yellow); Protein,Urine <15 mg/dL mg/dL (Negative); Urobilinogen,Urine < 2.0 mg/dL (<2.0)
--- NOTE | 2020-05-10 06:59 | History and Physical Report ---
History of Present Illness Date of examination: 05/09/20 Date of admission: 05/09/20 22:48 Chief complaint: Chief complaint is right-sided weakness, other complaint include drooping of the right side of the face History of present illness: History of presenting illness, patient is a 60-year-old female who said that she started feeling weak on the right side of the body going on for about 4 to 7 days and patient subsequently noticed drooping on the right side of the face. There is history of associated speech impairment, there is no history of visual impairment and no history of dysphagia, also patient denied history of numbness or tingling in the arms. No family Past History Past Medical History: hypertension, other (MULTIPLE SCLEROSIS) Medications and Allergies Allergies Allergy/AdvReac Type Severity Reaction Status Date / Time No Known Allergies Allergy Verified 05/09/20 17:51 Home Medications Medication Instructions Recorded Confirmed Last Taken Type atenoloL [Tenormin] 25 mg PO DAILY #30 tab 12/15/17 05/09/20 Unknown Rx LORazepam [Lorazepam] 1 mg PO QDAY 08/17/19 05/09/20 Unknown History Docusate Sodium [Colace CAP] 100 mg PO BID capsule 08/22/19 05/09/20 Unknown Rx Baclofen 20 mg PO BID 05/09/20 05/09/20 Unknown History Keppra TAB 1,000 mg PO BID 05/09/20 05/09/20 Unknown History clonazePAM 1 mg PO TID 05/09/20 05/09/20 Unknown History Active Meds: Active Medications Acetaminophen (Tylenol) 650 mg PO Q4H PRN PRN Reason: Fever >101 Aspirin (Aspirin) 325 mg PO QDAY [facility] Atenolol (Tenormin) 25 mg PO DAILY [facility] Last Admin: 05/09/20 22:40 Dose: Not Given Documented by: Atorvastatin Calcium (Lipitor) 80 mg PO QHS [facility] Baclofen (Lioresal) 20 mg PO BID [facility] Last Admin: 05/09/20 22:41 Dose: 20 mg Documented by: Clonazepam (Klonopin) 1 mg PO TID [facility] Docusate Sodium (Colace) 100 mg PO BID [facility] Last Admin: 05/09/20 22:42 Dose: 100 mg Documented by: Levetiracetam (Keppra) 1,000 mg PO BID [facility] Last Admin: 05/09/20 22:41 Dose: 1,000 mg Documented by: Lorazepam (Ativan) 1 mg PO QDAY [facility] Last Admin: 05/09/20 22:40 Dose: 1 mg Documented by: Ondansetron HCl (Zofran) 4 mg IV Q8H PRN PRN Reason: Nausea And Vomiting Review of Systems Constitutional: weakness, no weight loss, no weight gain, no fever, no chills, no sweats, no anorexia, no fatigue, no malaise, no lethargy Eyes: bilateral: other (NO BILATERAL EYE SYMPTOMS) Ears, nose, mouth and throat: no deferred, no ear pain, no ear discharge, no decreased hearing, no nose pain, no nasal congestion, no nasal discharge, no sinus pressure, no dental pain, no mouth pain, no dysphagia, no hoarseness, no sore throat, no swelling in mouth, no swelling in throat, no headache, no vertigo, no pain front of neck, no neck fullness/pressure Breasts: deferred Cardiovascular: no chest pain, no palpitations, no syncope, no lightheadedness, no shortness of breath Respiratory: no cough, no hemoptysis, no shortness of breath Gastrointestinal: no abdominal pain, no nausea, no vomiting, no diarrhea, no constipation, no change in bowel habits, no melena, no hematochezia, no loss of appetite, no heartburn Genitourinary Female: no Menstruation: postmenopausal Rectal: no pain, no itching Musculoskeletal: no neck stiffness, no neck pain, no low back pain, no shooting leg pain, no leg numbness/tingling, no morning stiffness, no muscle weakness, no muscle cramps, no myalgias, no atrophy, no fractures Integumentary: no rash, no pruritis, no redness, no sores, no jaundice, no darkening of skin, no depigmentation, no acne, no hirsutism Neurological: weakness, no parathesias, no numbness, no tingling, no seizures, no syncope, no tremors, no ataxia, no vertigo, no headaches, no migraines, no convulsions, no aphasia, no change in speech, no change in mentation, no confusion, no changes in smell/taste Psychiatric: no anxiety, no insomnia, no hypersomnia, no disorientation, no hallucinations, no depression, no hopelessness Endocrine: no heat intolerance, no polyphagia, no polydipsia, no polyuria, no nocturia, no excessive sweating, no thyroid mass, no palpatations, no high blood sugars Hematologic/Lymphatic: no easy bruising, no easy bleeding, no lymphadenopathy, no lymphedema Exam - Constitutional Vitals: Temp Pulse Resp BP Pulse Ox 97.8 F 62 18 103/62 97 05/10/20 05:30 05/10/20 05:30 05/10/20 05:30 05/10/20 05:30 05/10/20 05:30 General appearance: Present: no acute distress - EENT Eyes: Present: PERRL, EOM intact ENT: hearing intact, clear oral mucosa - Neck Neck: Present: supple, normal ROM. Absent: carotid bruits - Respiratory Respiratory effort: normal - Cardiovascular Rhythm: regular Heart Sounds: Present: S1 & S2. Absent: gallop, systolic murmur, diastolic murmur - Extremities Extremities: no ischemia, No edema Peripheral Pulses: within normal limits - Abdominal General gastrointestinal: Present: soft, non-tender, non-distended. Absent: tender, distended, rigid, mass, hernia Female genitourinary: Present: deferred - Rectal Rectal Exam: deferred - Integumentary Integumentary: Present: clear, warm, dry - Musculoskeletal Musculoskeletal: right sided weakness, generalized weakness - Psychiatric Psychiatric: appropriate mood/affect HEART Score - HEART Score Age: 45-65 Risk factors: 1-2 risk factors Troponin: Troponin T < 0.010 ng/mL (0.00-0.029) 05/09/20 20:35 - Critical Actions Critical Actions: 0-3 pts:0.9-1.7%risk of adverse cardiac event.Candidate for discharge Results - Labs CBC & Chem 7: 05/09/20 19:00 05/09/20 19:00 Labs: Laboratory Last Values WBC 7.2 K/mm3 (4.5-11.0) 05/09/20 19:00 RBC 4.52 M/mm3 (3.65-5.03) 05/09/20 19:00 Hgb 12.9 gm/dl (10.1-14.3) 05/09/20 19:00 Hct 38.0 % (30.3-42.9) 05/09/20 19:00 MCV 84 fl (79-97) 05/09/20 19:00 MCH 29 pg (28-32) 05/09/20 19:00 MCHC 34 % (30-34) 05/09/20 19:00 RDW 13.2 % (13.2-15.2) 05/09/20 19:00 Plt Count 210 K/mm3 (140-440) 05/09/20 19:00 Lymph % (Auto) 25.2 % (13.4-35.0) 05/09/20 19:00 [place] % (Auto) 3.4 % (0.0-7.3) 05/09/20 19:00 Eos % (Auto) 0.9 % (0.0-4.3) 05/09/20 19:00 Baso % (Auto) 0.5 % (0.0-1.8) 05/09/20 19:00 Lymph # 1.8 K/mm3 (1.2-5.4) 05/09/20 19:00 [place] # 0.2 K/mm3 (0.0-0.8) 05/09/20 19:00 Eos # 0.1 K/mm3 (0.0-0.4) 05/09/20 19:00 Baso # 0.0 K/mm3 (0.0-0.1) 05/09/20 19:00 Seg Neutrophils % 70.0 % (40.0-70.0) 05/09/20 19:00 Seg Neutrophils # 5.1 K/mm3 (1.8-7.7) 05/09/20 19:00 PT 13.5 Sec. (12.2-14.9) 05/09/20 19:00 INR 1.01 (0.87-1.13) 05/09/20 19:00 APTT 29.3 Sec. (24.2-36.6) 05/09/20 19:00 Sodium 142 mmol/L (137-145) 05/09/20 19:00 Potassium 3.8 mmol/L (3.6-5.0) 05/09/20 19:00 Chloride 102.5 mmol/L (98-107) 05/09/20 19:00 Carbon Dioxide 28 mmol/L (22-30) 05/09/20 19:00 Anion Gap 15 mmol/L 05/09/20 19:00 BUN 19 mg/dL (7-17) H 05/09/20 19:00 Creatinine 0.4 mg/dL (0.6-1.2) L 05/09/20 19:00 Estimated GFR > 60 ml/min 05/09/20 19:00 BUN/Creatinine Ratio 48 % 05/09/20 19:00 Glucose 119 mg/dL (65-100) H 05/09/20 19:00 Calcium 10.0 mg/dL (8.4-10.2) 05/09/20 19:00 Total Bilirubin 0.20 mg/dL (0.1-1.2) 05/09/20 19:00 AST 28 units/L (5-40) 05/09/20 19:00 ALT 19 units/L (7-56) 05/09/20 19:00 Alkaline Phosphatase 106 units/L (35-129) 05/09/20 19:00 Troponin T < 0.010 ng/mL (0.00-0.029) 05/09/20 20:35 NT-Pro-B Natriuret Pep 162.8 pg/mL (0-900) 05/09/20 19:00 Total Protein 7.7 g/dL (6.3-8.2) 05/09/20 19:00 Albumin 4.1 g/dL (3.9-5) 05/09/20 19:00 Albumin/Globulin Ratio 1.1 % 05/09/20 19:00 Urine Color Yellow (Yellow) 05/10/20 00:10 Urine Turbidity Clear (Clear) 05/10/20 00:10 Urine pH 7.0 (5.0-7.0) 05/10/20 00:10 Ur Specific [place] 1.016 (1.003-1.030) 05/10/20 00:10 Urine Protein <15 mg/dl mg/dL (Negative) 05/10/20 00:10 Urine Glucose (UA) Neg mg/dL (Negative) 05/10/20 00:10 Urine Ketones Neg mg/dL (Negative) 05/10/20 00:10 Urine Blood Sm (Negative) 05/10/20 00:10 Urine Nitrite Neg (Negative) 05/10/20 00:10 Urine Bilirubin Neg (Negative) 05/10/20 00:10 Urine Urobilinogen < 2.0 mg/dL (<2.0) 05/10/20 00:10 Ur Leukocyte Esterase Sm (Negative) 05/10/20 00:10 Urine WBC (Auto) 5.0 /HPF (0.0-6.0) 05/10/20 00:10 Urine RBC (Auto) 1.0 /HPF (0.0-6.0) 05/10/20 00:10 U Epithel Cells (Auto) 6.0 /HPF (0-13.0) 05/10/20 00:10 Urine Bacteria (Auto) 2+ /HPF (Negative) 05/10/20 00:10 [place]/IV: Voiding Method External Female Catheter IV Catheter Type [Left Forearm INT / Saline Lock ] Assessment and Plan - Patient Problems (1) Facial droop Current Visit: Yes Status: Acute Plan to address problem: 1. MRI BRAIN WITHOUT CONTRAST 2. BILATERAL CAROTID DOPPLER ULTRASOUND 3. 2- D ECHOCARDIOGRAM 4. SPEECH AND PHYSICAL THERAPY CONSULT 5. NEUROLOGY CONSULT (2) Right sided weakness Current Visit: Yes Status: Acute Plan to address problem: 1. PHYSICAL THERAPY CONSULT 2. NEUROLOGY CONSULT 3.MRI BRAIN, 4, CAROTID DOPPLER 5. 2- D ECHOCARDIOGRAM
[2020-05-10] MEDS ORDERED: CLONAZEPAM 1 MG PO SCH (08:00)
[2020-05-10] MEDS: atenoloL 25 MG TAB PO SCH (09:56)
[2020-05-10] MEDS: levETIRAcetam 500 MG TAB PO SCH ×2 (09:56→21:25)
[2020-05-10] MEDS: ASPIRIN 325 MG TAB PO SCH (09:56)
[2020-05-10] MEDS: DOCUSATE SODIUM 100 MG CAP PO SCH ×2 (09:56→21:25)
[2020-05-10] MEDS: LORazepam 1 MG TAB PO SCH (09:56)
[2020-05-10] MEDS: BACLOFEN 10 MG TAB PO SCH ×2 (09:57→21:24)
--- NOTE | 2020-05-10 13:47 | Magnetic Resonance Report ---
MRI BRAIN 05/10/2020 INDICATION / CLINICAL INFORMATION: MAIN. Right facial droop, CVA TECHNIQUE: Multiplanar, multisequence MR images of the brain were obtained. COMPARISON: CT brain 05/09/2020. MRI brain 08/19/2019. FINDINGS: BRAIN / INTRACRANIAL CONTENTS: Unenhanced MR images of the brain demonstrate no evidence of acute int racranial abnormality. Ventricles and sulci are normal in size and shape. There is no evidence of ischemic injury, demyelination, hemorrhage, or mass. There are no abnormal ex tra-axial fluid collections. EXTRACRANIAL: Unremarkable CRANIOCERVICAL JUNCTION: No significant abnormality. VASCULAR FLOW-VOIDS: No significant abnormality. IMPRESSION: Negative unenhanced MRI of the brain. No change when compared to 08/19/2019 Signer Name: Fransico Magaña MD Signed: 05/10/2020 1:42 PM Workstation Name: [id number]
--- NOTE | 2020-05-10 13:55 | Event Note ---
Date: 05/10/20 This is the second IMS visit of the day Patient had a complete history and physical this morning Admitted for suspected stroke and is undergoing stroke work-up Awake and alert No specific complaints MRI brain results reviewed-no acute lesions Neurology consult note pending Echo and PT/OT evaluation pending Lab results reviewed
--- NOTE | 2020-05-10 14:07 | Vascular Lab Report ---
. BILATERAL CAROTID DOPPLER ULTRASOUND INDICATION : CVA. Right-sided weakness, facial droop TECHNIQUE: Grayscale and color Doppler imaging performed through the neck. COMPARISON: None FINDINGS: Right: There is no significant atherosclerotic disease. Peak systolic velocity in the CCA is 83 cm/ s with end-diastolic velocity of 19 cm/s. Peak systolic velocity in the proximal ICA is 100 cm/s with end-diastolic velocity of 17 cm/s. ICA to CCA ratio is less than 2. There is antegrade flow in the ECA and the vertebral artery. Left: There is no significant atherosclerotic disease. Peak systolic velocity in the CCA is 77 cm/s w ith end-diastolic velocity of 19 cm/s. Peak systolic velocity in the proximal ICA is 78 cm/s with end -diastolic velocity of 23 cm/s. ICA to CCA ratio is less than 2. There is antegrade flow in the ECA and the vertebral artery. IMPRESSION: No hemodynamically significant stenosis by NASCET criteria. Doppler velocities indicate l ess than 50% luminal narrowing bilaterally. Signer Name: Surinder Stark Jr, MD Signed: 05/10/2020 2:02 PM Workstation Name: [id number]
--- NOTE | 2020-05-10 18:35 | Consultation ---
History of Present Illness Consult date: 05/10/20 Chief complaint: c/o right sided weakens and drooping right face History of present illness: History of presenting illness, patient is a 60-year-old female who said that she started feeling weak on the right side of the body going on for about 4 to 7 days and patient subsequently noticed drooping on the right side of the face. There is history of associated speech impairment, there is no history of visual impairment and no history of dysphagia, also patient denied history of numbness or tingling in the arms. No family Past History Past Medical History: hypertension, other (MULTIPLE SCLEROSIS) Medications and Allergies Allergies Allergy/AdvReac Type Severity Reaction Status Date / Time No Known Allergies Allergy Verified 05/09/20 17:51 Home Medications Medication Instructions Recorded Confirmed Last Taken Type atenoloL [Tenormin] 25 mg PO DAILY #30 tab 12/15/17 05/09/20 Unknown Rx LORazepam [Lorazepam] 1 mg PO QDAY 08/17/19 05/09/20 Unknown History Docusate Sodium [Colace CAP] 100 mg PO BID capsule 08/22/19 05/09/20 Unknown Rx Baclofen 20 mg PO BID 05/09/20 05/09/20 Unknown History Keppra TAB 1,000 mg PO BID 05/09/20 05/09/20 Unknown History clonazePAM 1 mg PO TID 05/09/20 05/09/20 Unknown History Active Meds: Active Medications Acetaminophen (Tylenol) 650 mg PO Q4H PRN PRN Reason: Fever >101 Aspirin (Aspirin) 325 mg PO QDAY [facility] Last Admin: 05/10/20 09:56 Dose: 325 mg Documented by: Atenolol (Tenormin) 25 mg PO DAILY [facility] Last Admin: 05/10/20 09:56 Dose: 25 mg Documented by: Atorvastatin Calcium (Lipitor) 80 mg PO QHS [facility] Baclofen (Lioresal) 20 mg PO BID [facility] Last Admin: 05/10/20 09:57 Dose: 20 mg Documented by: Clonazepam (Klonopin) 1 mg PO TID [facility] Docusate Sodium (Colace) 100 mg PO BID [facility] Last Admin: 05/10/20 09:56 Dose: 100 mg Documented by: Levetiracetam (Keppra) 1,000 mg PO BID [facility] Last Admin: 05/10/20 09:56 Dose: 1,000 mg Documented by: Lorazepam (Ativan) 1 mg PO QDAY [facility] Last Admin: 05/10/20 09:56 Dose: 1 mg Documented by: Ondansetron HCl (Zofran) 4 mg IV Q8H PRN PRN Reason: Nausea And Vomiting Review of Systems All systems: negative (c/o right sided weakens and drooping right face) Physical Examination - Vital Signs Vital Signs: Vital Signs Temp Pulse Resp BP Pulse Ox 98.4 F 99 H 20 185/105 98 05/09/20 17:51 05/09/20 17:51 05/09/20 17:51 05/09/20 17:51 05/09/20 17:51 - Physical Exam Narrative exam: Neurology examination- - barely speaks welsh. alert awake. talking. she says that she still has right facial weakness and weakness rigth arm, but on exam, there is no faial asymmetry and there is no arm drift. cn- no facial asymmetry. by nurse- jorge. eomi. Laboratory Results - last 72 hr 05/09/20 05/09/20 05/09/20 19:00 19:00 19:00 WBC 7.2 RBC 4.52 Hgb 12.9 Hct 38.0 MCV 84 MCH 29 MCHC 34 RDW 13.2 Plt Count 210 Lymph % (Auto) 25.2 [place] % (Auto) 3.4 Eos % (Auto) 0.9 Baso % (Auto) 0.5 Lymph # 1.8 [place] # 0.2 Eos # 0.1 Baso # 0.0 Seg Neutrophils % 70.0 Seg Neutrophils # 5.1 PT 13.5 INR 1.01 APTT 29.3 Sodium 142 Potassium 3.8 Chloride 102.5 Carbon Dioxide 28 Anion Gap 15 BUN 19 H Creatinine 0.4 L Estimated GFR > 60 BUN/Creatinine Ratio 48 Glucose 119 H Calcium 10.0 Total Bilirubin 0.20 AST 28 ALT 19 Alkaline Phosphatase 106 Troponin T NT-Pro-B Natriuret Pep Total Protein 7.7 Albumin 4.1 Albumin/Globulin Ratio 1.1 Urine Color Urine Turbidity Urine pH Ur Specific [place] Urine Protein Urine Glucose (UA) Urine Ketones Urine Blood Urine Nitrite Urine Bilirubin Urine Urobilinogen Ur Leukocyte Esterase Urine WBC (Auto) Urine RBC (Auto) U Epithel Cells (Auto) Urine Bacteria (Auto) 05/09/20 05/09/20 05/10/20 19:00 20:35 00:10 WBC RBC Hgb Hct MCV MCH MCHC RDW Plt Count Lymph % (Auto) [place] % (Auto) Eos % (Auto) Baso % (Auto) Lymph # [place] # Eos # Baso # Seg Neutrophils % Seg Neutrophils # PT INR APTT Sodium Potassium Chloride Carbon Dioxide Anion Gap BUN Creatinine Estimated GFR BUN/Creatinine Ratio Glucose Calcium Total Bilirubin AST ALT Alkaline Phosphatase Troponin T < 0.010 < 0.010 NT-Pro-B Natriuret Pep 162.8 Total Protein Albumin Albumin/Globulin Ratio Urine Color Yellow Urine Turbidity Clear Urine pH 7.0 Ur Specific [place] 1.016 Urine Protein <15 mg/dl Urine Glucose (UA) Neg Urine Ketones Neg Urine Blood Sm Urine Nitrite Neg Urine Bilirubin Neg Urine Urobilinogen < 2.0 Ur Leukocyte Esterase Sm Urine WBC (Auto) 5.0 Urine RBC (Auto) 1.0 U Epithel Cells (Auto) 6.0 Urine Bacteria (Auto) 2+ Results - Laboratory Findings CBC and BMP: 05/09/20 19:00 05/09/20 19:00 Abnormal Lab Findings: Abnormal Labs 05/09/20 19:00 BUN 19 H Creatinine 0.4 L Glucose 119 H Assessment and Plan the patient does not give a clear history. she was told in [place], that she may have MS, but no MRI brain was done at that time. She is also not sure what was told to her in the past. on this admission the MRI brain w out looks good. no stroke or demyelination seen. she says that she still has right facial weakness and weakness rigth arm, but on exam, there is no faial asymmetry and there is no arm drift. - she was also taking keppra 1gm bid at home. she does not give a clear h/o seizures too. - c.dapples and echo- normal. - would like to look for cervical spinal myelopathy . - no seizures witnessed . but could be a post ictal state . plan- ordering mri c spine w out cnt. she si already on keppra 1 gm bid at home. -
[2020-05-10] MEDS: clonazePAM 0.5 MG TAB PO SCH (21:24)
[2020-05-11] MEDS: clonazePAM 0.5 MG TAB PO SCH ×2 (08:50→13:57)
--- NOTE | 2020-05-11 10:37 | Magnetic Resonance Report ---
MRI CERVICAL SPINE WITHOUT CONTRAST INDICATION / CLINICAL INFORMATION: Multiple sclerosis TECHNIQUE: Multisequence, multiplanar images of the cervical spine were obtained. COMPARISON: None available. FINDINGS: CRANIOCERVICAL JUNCTION:No significant abnormality. Basal angle of the skull is 125 degrees (within n ormal limits) ALIGNMENT: No significant abnormality. VERTEBRAE:Normal marrow signal and vertebral body height for age. VISUALIZED SPINAL CORD: No significant abnormality. No focal lesion in the cervical cord. QYIBU-CU-REUUC ANALYSIS: C2-3: No significant disc abnormality, spinal canal stenosis, or neural foraminal stenosis. C3-4: No significant disc abnormality, spinal canal stenosis, or neural foraminal stenosis. C4-5: No significant disc abnormality, spinal canal stenosis, or neural foraminal stenosis. C5-6: Shallow bulging disc extending laterally bilaterally; neuroforamina are not compromised C6-7: Shallow bulging discs; neuroforamina are normal C7-T1: Shallow bulging disc; PARASPINAL SOFT TISSUES: No significant abnormality. ADDITIONAL FINDINGS: Reactive to left level 5 lymph node IMPRESSION: Shallow bulging discs at C5-C6, C6-C7 and C7-T1 disc levels. Signer Name: Fatou Recinos MD Signed: 05/11/2020 10:33 AM Workstation Name: [employer]
[2020-05-11] MEDS: DOCUSATE SODIUM 100 MG CAP PO SCH (10:46)
[2020-05-11] MEDS: ASPIRIN 325 MG TAB PO SCH (10:46)
[2020-05-11] MEDS: LORazepam 1 MG TAB PO SCH (10:46)
[2020-05-11] MEDS: BACLOFEN 10 MG TAB PO SCH (10:46)
[2020-05-11] MEDS: levETIRAcetam 500 MG TAB PO SCH (10:46)
[2020-05-11] MEDS: atenoloL 25 MG TAB PO SCH (10:47)
[2020-05-11 10:49] VITALS: BP 146/74
--- NOTE | 2020-05-11 16:21 | Discharge Summary ---
Providers - Providers Date of Admission: 05/09/20 22:48 Attending physician: JULI HARDEN MD 05/10/20 06:00 Physical Therapy Evaluation and Treat [CONS] Routine Comment: Reason For Exam: RIGHT SIDED WEAKNESS Speech Therapy Evaluation and Treat [CONS] Routine Reason For Exam: FACIAL DROOP 05/10/20 07:06 Consult to Physician [CONS] Routine Comment: Consulting Provider: LANDY RITCHIE Physician Instructions: Reason For Exam: RIGHT SIDED WEAKNESS AND RIGHT FACIAL DROOP 05/10/20 08:21 Consult to Wound/ET Nurse [CONS] Routine Reason For Exam: wound eval right heel 05/11/20 16:09 psychiatry consult [Consult to Mental Health] [CONS] Routine Reason For Exam: possible conversion disorder Primary care physician: [employer] Hospitalization Reason for admission: Change in mental status Condition: Fair Hospital course: patient is a 60-year-old female who said that she started feeling weak on the right side of the body going on for about 4 to 7 days and patient subsequently noticed drooping on the right side of the face. There is history of associated speech impairment, there is no history of visual impairment and no history of dysphagia, also patient denied history of numbness or tingling in the arms. No family Work-up in the hospital has been negative all negative including an MRI which showed no acute pathology Was seen by neurologist recommended to continue Keppra medication. Also recommended an outpatient evaluation by home health as patient is significantly cachectic and malnourished. MRI cervical spine recommended by neurologist shows bulging disc. Hospital bed and assistance was obtained by case management. Neurology input as documented the patient does not give a clear history. she was told in [place], that she may have MS, but no MRI brain was done at that time. She is also not sure what was told to her in the past. on this admission the MRI brain w out looks good. no stroke or demyelination seen. she says that she still has right facial weakness and weakness rigth arm, but on exam, there is no faial asymmetry and there is no arm drift. - she was also taking keppra 1gm bid at home. she does not give a clear h/o seizures too. - c.dapples and echo- normal. - would like to look for cervical spinal myelopathy . - no seizures witnessed . but could be a post ictal state . plan- ordering mri c spine w out cnt. she si already on keppra 1 gm bid at home. Seizure Disorder Shallow bulging discs at C5-C6, C6-C7 and C7-T1 disc levels. Facial droop right-sided now resolved Poor Historian Disposition: [id number]/[place]-06 HOME UNDER HOME HLTH Time spent for discharge: 35 MINS Core Measure Documentation - Palliative Care Palliative Care/ Comfort Measures: Not Applicable - Core Measures Any of the following diagnoses?: none Exam - Physical Exam Narrative exam: General appearance: Present: no acute distress otherwise cachectic - EENT Eyes: Present: PERRL, EOM intact ENT: hearing intact, clear oral mucosa - Neck Neck: Present: supple, normal ROM. Absent: carotid bruits - Respiratory Respiratory effort: normal - Cardiovascular Rhythm: regular Heart Sounds: Present: S1 & S2. Absent: gallop, systolic murmur, diastolic murmur - Extremities Extremities: no ischemia, No edema Peripheral Pulses: within normal limits - Abdominal General gastrointestinal: Present: soft, non-tender, non-distended. Absent: tender, distended, rigid, mass, hernia Female genitourinary: Present: deferred - Rectal Rectal Exam: deferred - Integumentary Integumentary: Present: clear, warm, dry - Musculoskeletal Musculoskeletal: right sided weakness, generalized weakness - Psychiatric Psychiatric: appropriate mood/affect - Constitutional Vitals: Temp Pulse Resp BP Pulse Ox 98.0 F 67 18 146/74 98 05/11/20 07:45 05/11/20 11:09 05/11/20 07:45 05/11/20 10:47 05/11/20 11:09 Plan Activity: advance as tolerated, fall precautions Diet: low fat Special Instructions: record daily weights, record daily BP diary Additional Instructions: PRIMARY CARE DOCTOR TO ARRANGE OUTPATIENT NEUROLOGY FOLLOW UP Follow up with: PRIMARY CARE, [Primary Care Provider] - 3-5 Days [facility] [Outside] - 7 Days Prescriptions: clonazePAM 1 mg PO TID #90 Keppra TAB 1,000 mg PO BID #30
--- NOTE | 2020-05-11 17:52 | Progress Note ---
Assessment and Plan the patient does not give a clear history. the patient still c/o right facial weakness and right sided weakness and also dizziness. she was told in [place], that she may have MS, but no MRI brain was done at that time. She is also not sure what was told to her in the past. on this admission the MRI brain w out looks good. no stroke or demyelination seen. she says that she still has right facial weakness and weakness rigth arm, but on exam, there is no faial asymmetry and there is no arm drift. -spoke to daughter on phone- [facility] patient had similar kind of event in [facility], 4 years back, when she could not move her legs. the Neuologists over there could not find any abnormality. she went to rehab afterwards. - she was also taking keppra 1gm bid at home. she does not give a clear h/o seizures too. - c.dapples and echo- normal. - mri c- spine- unremarkable- mri brain- unremarkable. - no seizures witnessed .. she was already taking keppra at home. ----this could be a conversion disorder. plan- Psychiatry consult requested . nurse will call Psych. she si already on keppra 1 gm bid at home. shoudl continue with it. signing off . please call Neurology if required. thanks. - Subjective Date of service: 05/11/20 Interval history: the patient still c/o right facial weakness and right sided weakness and also dizziness. Objective - Exam Narrative Exam: Neurology examination- MS- barely speaks south korean. alert awake. talking. she says that she still has right facial weakness and weakness rigth arm, but on exam, there is no facial asymmetry and there is no arm drift. cn- no facial asymmetry. by nurseChiquita patel. ashliemi. Laboratory Results - last 72 hr 05/09/20 05/09/20 05/09/20 19:00 19:00 19:00 WBC 7.2 RBC 4.52 Hgb 12.9 Hct 38.0 MCV 84 MCH 29 MCHC 34 RDW 13.2 Plt Count 210 Lymph % (Auto) 25.2 [place] % (Auto) 3.4 Eos % (Auto) 0.9 Baso % (Auto) 0.5 Lymph # 1.8 [place] # 0.2 Eos # 0.1 Baso # 0.0 Seg Neutrophils % 70.0 Seg Neutrophils # 5.1 PT 13.5 INR 1.01 APTT 29.3 Sodium 142 Potassium 3.8 Chloride 102.5 Carbon Dioxide 28 Anion Gap 15 BUN 19 H Creatinine 0.4 L Estimated GFR > 60 BUN/Creatinine Ratio 48 Glucose 119 H Calcium 10.0 Total Bilirubin 0.20 AST 28 ALT 19 Alkaline Phosphatase 106 Troponin T NT-Pro-B Natriuret Pep Total Protein 7.7 Albumin 4.1 Albumin/Globulin Ratio 1.1 Urine Color Urine Turbidity Urine pH Ur Specific [place] Urine Protein Urine Glucose (UA) Urine Ketones Urine Blood Urine Nitrite Urine Bilirubin Urine Urobilinogen Ur Leukocyte Esterase Urine WBC (Auto) Urine RBC (Auto) U Epithel Cells (Auto) Urine Bacteria (Auto) 05/09/20 05/09/20 05/10/20 19:00 20:35 00:10 WBC RBC Hgb Hct MCV MCH MCHC RDW Plt Count Lymph % (Auto) [place] % (Auto) Eos % (Auto) Baso % (Auto) Lymph # [place] # Eos # Baso # Seg Neutrophils % Seg Neutrophils # PT INR APTT Sodium Potassium Chloride Carbon Dioxide Anion Gap BUN Creatinine Estimated GFR BUN/Creatinine Ratio Glucose Calcium Total Bilirubin AST ALT Alkaline Phosphatase Troponin T < 0.010 < 0.010 NT-Pro-B Natriuret Pep 162.8 Total Protein Albumin Albumin/Globulin Ratio Urine Color Yellow Urine Turbidity Clear Urine pH 7.0 Ur Specific [place] 1.016 Urine Protein <15 mg/dl Urine Glucose (UA) Neg Urine Ketones Neg Urine Blood Sm Urine Nitrite Neg Urine Bilirubin Neg Urine Urobilinogen < 2.0 Ur Leukocyte Esterase Sm Urine WBC (Auto) 5.0 Urine RBC (Auto) 1.0 U Epithel Cells (Auto) 6.0 Urine Bacteria (Auto) 2+ - Vital Sign Vital Signs - 12hr 05/11/20 05/11/20 05/11/20 07:45 10:00 10:44 Temperature 98.0 F Pulse Rate 69 78 87 Pulse Rate [ Apical] Respiratory 18 Rate Blood Pressure 126/105 159/99 O2 Sat by Pulse 100 100 Oximetry 05/11/20 05/11/20 10:47 11:09 Temperature Pulse Rate 87 Pulse Rate [ 67 Apical] Respiratory Rate Blood Pressure 146/74 O2 Sat by Pulse 98 Oximetry - Laboratory Findings CBC and BMP: 05/09/20 19:00 05/09/20 19:00 Abnormal Lab Findings: Abnormal Labs 05/09/20 19:00 BUN 19 H Creatinine 0.4 L Glucose 119 H
== END 2020-05-11 19:42 | disposition home health service (06) ==
LOC: ED 17:18 → 4A 22:48
PROVIDERS: ADMIT Internal Medicine; ATTEND Internal Medicine
DX: R53.1 Weakness (principal); R29.810 Facial weakness; R41.82 Altered mental status, unspecified; I10 Essential (primary) hypertension; G35 Multiple sclerosis; Z79.899 Other long term (current) drug therapy
CPT/HCPCS: 36415; 70450; 70551; 71045; 72141; 80053; 81001; 83880; 84484; 85025; 85610; 85730; 92610; 93005; 93306; 93880; 97163; 99285; A9270; G0378

== ENCOUNTER 2020-06-24 17:58 | Observation (INO) | payer MEDICARE ==
--- NOTE | 2020-06-24 18:24 | Cat Scan Report ---
CT head/brain wo con INDICATION / CLINICAL INFORMATION: 60 years Female; MAIN. TECHNIQUE: Routine CT head without contrast. All CT scans at this location are performed using CT dos e reduction for ALARA by means of automated exposure control. COMPARISON: 05/09/2020 FINDINGS: BRAIN / INTRACRANIAL CONTENTS: No acute hemorrhage, mass effect, midline shift, hydrocephalus, or acu te, large territorial infarct. Mild cerebral atrophy in the frontal regions. No significant white mat ter abnormality. CRANIOCERVICAL JUNCTION: No significant abnormality. ORBITS: No significant abnormality of visualized orbits. SINUSES / MASTOIDS: There is partial opacification of the ethmoids on the right. Mild to moderate muc osal thickening seen in the ethmoids on the left. ADDITIONAL FINDINGS: None. IMPRESSION: 1. No focal mass, hemorrhage, hydrocephalus, or acute, large territorial infarct. CODE STROKE: Exam Completed (SUPERVISOR RESIDENTIAL/CDT): 06/24/2020 5:11 PM Exam Reviewed (SUPERVISOR RESIDENTIAL/CDT): 5:15 PM Time of Communication (SUPERVISOR RESIDENTIAL/CDT): 5:19 PM Licensed Practitioner Receiving Report: Dr. Zaldivar Signer Name: Myke Barragan MD, III Signed: 06/24/2020 6:20 PM Workstation Name: [email or web address]
--- NOTE | 2020-06-24 18:27 | Emergency Department Report ---
- General Chief complaint: Neuro Symptoms/Deficit Stated complaint: STROKE Time Seen by Provider: 06/24/20 17:59 Source: patient, EMS Mode of arrival: Stretcher Limitations: Physical Limitation - History of Present Illness Initial comments: [facility] [facility] Date of Service: 06/24/2020 17:57:40 Impression: Weakness Comments/Sign-Out: Subacute onset of right sided weakness, unclear etiology and unclear reasoning for her BL LE weakness which is seemingly chronic. Due to focal right sided sx, admit to r/o stroke Metrics: Last Known Well: Unknown [employer] Notification Time: 06/24/2020 17:56:28 Arrival Time: 06/24/2020 18:00:00 Stamp Time: 06/24/2020 17:57:40 Time First Login Attempt: 06/24/2020 18:02:00 Video Start Time: 06/24/2020 18:02:00 Symptoms: weaknesss NIHSS Start Assessment Time: 06/24/2020 18:16:37 Patient is not a candidate for Alteplase/Activase. Patient was not deemed candidate for Alteplase/Activase thrombolytics because of Last Well Known Above 4.5 Hours. Video End Time: 06/24/2020 18:22:42 CT head showed no acute hemorrhage or acute core infarct. Clinical Presentation is not Suggestive of Large Vessel Occlusive Disease ED Physician notified of diagnostic impression and management plan on 06/24/2020 18:22:42 Our recommendations are outlined below. Recommendations: Activate Stroke Protocol Admission/Order Set Stroke/Telemetry Floor Neuro Checks Bedside Swallow Eval DVT Prophylaxis IV Fluids, Normal Saline Head of Bed 30 Degrees Euglycemia and Avoid Hyperthermia (PRN Acetaminophen) MRI brain and C spine with/without con Routine Consultation with Inhouse Neurology for Follow up Care Sign Out: Discussed with Emergency Department Provider History of Present Illness: Patient is a 60 year old Female. Patient was brought by EMS for symptoms of weaknesss History of seizure, multiple sclerosis, recurrent UTIs Daughter found her around 1630 with symptoms. Symptoms included right sided symptoms with the arm and leg. Apparently according to ED MD she has been admitted for similiar symptoms recently without acute findings. Examination: BP(153/91), Pulse(91), Blood Glucose(112) 1A: Level of Consciousness - Alert; keenly responsive + 0 1B: Ask Month and Age - Both Questions Right + 0 1C: Blink Eyes & Squeeze Hands - Performs Both Tasks + 0 2: Test Horizontal Extraocular Movements - Normal + 0 3: Test Visual Iqbal - No Visual Loss + 0 4: Test Facial Palsy (Use Grimace if Obtunded) - Normal symmetry + 0 5A: Test Left Arm Motor Drift - No Drift for 10 Seconds + 0 5B: Test Right Arm Motor Drift - No Drift for 10 Seconds + 0 6A: Test Left Leg Motor Drift - No Effort Against [place] + 2 6B: Test Right Leg Motor Drift - Some Effort Against [place] + 2 7: Test Limb Ataxia (FNF/Heel-Lo) - No Ataxia + 0 8: Test Sensation - Normal; No sensory loss + 0 9: Test Language/Aphasia - Normal; No aphasia + 0 10: Test Dysarthria - Normal + 0 11: Test Extinction/Inattention - No abnormality + 0 NIHSS Score: 4 Patient/Family was informed the Neurology Consult would happen via TeleHealth consult by way of interactive audio and video telecommunications and consented to receiving care in this manner. Due to the immediate potential for life-threatening deterioration due to underlying acute neurologic illness, I spent 30 minutes providing critical care. This time includes time for face to face visit via telemedicine, review of medical records, imaging studies and discussion of findings with providers, the patient and/or family. Dr Ham[place] [facility] [employer] Case [id number] - Related Data Home Medications Medication Instructions Recorded Confirmed Last Taken LORazepam [Lorazepam] 1 mg PO QDAY 08/17/19 05/09/20 Unknown Baclofen 20 mg PO BID 05/09/20 05/09/20 Unknown Previous Rx's Medication Instructions Recorded Last Taken Type atenoloL [Tenormin] 25 mg PO DAILY #30 tab 12/15/17 Unknown Rx Docusate Sodium [Colace CAP] 100 mg PO BID capsule 08/22/19 Unknown Rx AtorvaSTATin [Lipitor] 80 mg PO QHS tablet 05/11/20 Unknown Rx Keppra TAB 1,000 mg PO BID #30 05/11/20 Unknown Rx clonazePAM 1 mg PO TID #90 05/11/20 Unknown Rx Allergies Allergy/AdvReac Type Severity Reaction Status Date / Time No Known Allergies Allergy Verified 05/09/20 17:51 ED Review of Systems ROS: Stated complaint: STROKE Other details as noted in HPI ED Past Medical Hx - Past Medical History Hx Hypertension: Yes Additional medical history: MS - Surgical History Additional Surgical History: Unknown - Social History Smoking Status: Never Smoker Substance Use Type: None - Medications Home Medications: Home Medications Medication Instructions Recorded Confirmed Last Taken Type atenoloL [Tenormin] 25 mg PO DAILY #30 tab 12/15/17 05/09/20 Unknown Rx LORazepam [Lorazepam] 1 mg PO QDAY 08/17/19 05/09/20 Unknown History Docusate Sodium [Colace CAP] 100 mg PO BID capsule 08/22/19 05/09/20 Unknown Rx Baclofen 20 mg PO BID 05/09/20 05/09/20 Unknown History AtorvaSTATin [Lipitor] 80 mg PO QHS tablet 05/11/20 Unknown Rx Keppra TAB 1,000 mg PO BID #30 05/11/20 Unknown Rx clonazePAM 1 mg PO TID #90 05/11/20 Unknown Rx ED Physical Exam - General Limitations: Physical Limitation ED Course Vital Signs 06/24/20 18:14 Pulse Rate 91 H Respiratory 14 Rate Blood Pressure 153/91 O2 Sat by Pulse 100 Oximetry Critical care attestation.: If time is entered above; I have spent that time in minutes in the direct care of this critically ill patient, excluding procedure time. ED Disposition Clinical Impression: Malnutrition Disposition: DC-09 OP ADMIT IP TO THIS HOSP Is pt being admited?: Yes Condition: Stable
--- NOTE | 2020-06-24 18:44 | Emergency Department Report ---
ED General Adult HPI - General Chief complaint: Neuro Symptoms/Deficit Stated complaint: STROKE PUI?: No Time Seen by Provider: 06/24/20 17:59 Source: patient, EMS ( EMS documentation not available at time of chart dictat ion . Verbal report received from emergency medical services), RN notes reviewed, old records reviewed Mode of arrival: Stretcher Limitations: Altered Mental Status, Physical Limitation - History of Present Illness Initial comments: The patient was evaluated in the emergency department for symptoms described in the history of present illness. He/she was evaluated in the context of the global COVID-19 pandemic, which necessitated consideration that the patient might be at risk for infection with the virus that causes COVID-19. Institutional protocols and algorithms that pertain to the evaluation of p atients at risk for COVID-19 are in a state of rapid change based on information released by regulatory bodies including the CDC and federal and state organizations. These policies and algorithms were followed during the patient's care in the emergency department. Please note that these policies, procedures and recommendations changed on a rapid basis. The patient is a 60-year-old female. I have evaluated this patient in the past. She is chronically bedbound, with chronic bilateral lower extremity weakness and contractures, and intermittent spasms over years. Apparently in [place], where the patient is from, she may have had muscle conduction studies, but the results of the studies are unknown. She may also have a history of multiple sclerosis, however, it is uncertain if this is a formal diagnosis. The patient was admitted to this hospital last month with a complaint of feeling weak on the right side of her body, and subsequent drooping on the right side of her face. There was also a documented history of associated speech impairment, and while in the hospital, the patient had a fairly unremarkable work-up, including negative MRI of the brain, and cervical spine. She was seen by neurology, who advised that there might be a cervical spine myelopathy, as well as a postictal state. In addition, a psychiatry consult was recommended out of concern for conversion disorder. Apparently, on prior MRIs at this hospital, no demyelination was noted. She is also had an unremarkable echocardiogram. Today, the patient is brought to the hospital by EMS as a code stroke. History obtained from EMS. Patient herself is poorly verbal and a poor historian. As per verbal report from EMS, patient was seen by daughter at 4:30 PM with a complaint of right-sided weakness and facial droop. However, the daughter was not with the patient all day, and apparently encountered the patient after an uncertain period of time. It is not known when the daughter last saw the patient as her normal status or self. The daughter is not physically available in the emergency room to obtain additional information or collateral information. Patient herself will follow some commands, but is a poor historian, and has difficulty describing the qualitative nature of her symptoms, exacerbating, or relieving factors. station supervisor: [place] -: unknown Location: face, mouth, right, upper extremity Quality: other Consistency: other Improves with: other Worsens with: other Associated Symptoms: other - Related Data Home Medications Medication Instructions Recorded Confirmed Last Taken LORazepam [Lorazepam] 1 mg PO QDAY 08/17/19 06/25/20 Unknown Baclofen 20 mg PO BID 05/09/20 06/25/20 06/25/20 10:36 Previous Rx's Medication Instructions Recorded Last Taken Type atenoloL [Tenormin] 25 mg PO DAILY #30 tab 12/15/17 Unknown Rx Docusate Sodium [Colace CAP] 100 mg PO BID capsule 08/22/19 06/25/20 10:36 Rx AtorvaSTATin [Lipitor] 80 mg PO QHS tablet 05/11/20 Unknown Rx Keppra TAB 1,000 mg PO BID #30 05/11/20 06/25/20 10:36 Rx clonazePAM 1 mg PO TID #90 05/11/20 Unknown Rx Allergies Allergy/AdvReac Type Severity Reaction Status Date / Time No Known Allergies Allergy Verified 05/09/20 17:51 ED Review of Systems ROS: Stated complaint: STROKE Other details as noted in HPI Comment: Unobtainable due to pts medical conditions ED Past Medical Hx - Past Medical History Hx Hypertension: Yes Additional medical history: MS - Surgical History Additional Surgical History: Unknown - Social History Smoking Status: Never Smoker Substance Use Type: None - Medications Home Medications: Home Medications Medication Instructions Recorded Confirmed Last Taken Type atenoloL [Tenormin] 25 mg PO DAILY #30 tab 12/15/17 06/25/20 Unknown Rx LORazepam [Lorazepam] 1 mg PO QDAY 08/17/19 06/25/20 Unknown History Docusate Sodium [Colace CAP] 100 mg PO BID capsule 08/22/19 06/25/20 06/25/20 10:36 Rx Baclofen 20 mg PO BID 05/09/20 06/25/20 06/25/20 10:36 History AtorvaSTATin [Lipitor] 80 mg PO QHS tablet 05/11/20 06/25/20 Unknown Rx Keppra TAB 1,000 mg PO BID #30 05/11/20 06/25/20 06/25/20 10:36 Rx clonazePAM 1 mg PO TID #90 05/11/20 06/25/20 Unknown Rx ED Physical Exam - General Limitations: Altered Mental Status, Physical Limitation General appearance: in no apparent distress - Head Head exam: Present: atraumatic, normocephalic - Eye Eye exam: Present: normal appearance, EOMI, other (As this provider walks past the patient's room and examines her, she is noted to be tracking with her eyes) - ENT ENT exam: Present: normal exam, mucous membranes moist - Neck Neck exam: Present: normal inspection. Absent: tenderness, meningismus - Respiratory Respiratory exam: Present: decreased breath sounds. Absent: respiratory distress, wheezes, rales, rhonchi, stridor - Cardiovascular Cardiovascular Exam: Present: regular rate, normal rhythm, normal heart sounds. Absent: bradycardia, tachycardia, irregular rhythm, systolic murmur, diastolic murmur, rubs, gallop - GI/Abdominal GI/Abdominal exam: Present: soft. Absent: distended, tenderness, guarding, rebound, rigid, pulsatile mass - Extremities Exam Extremities exam: Present: other (Contractures noted in the bilateral lower extremities. Chronic discoloration and venous stasis changes are noted in the bilateral lower extremities. 2+ pulses noted in the bilateral upper and lower extremities. Patient moves her bilateral upper extremities.). Absent: normal inspection - Back Exam Back exam: Present: normal inspection. Absent: tenderness, paraspinal tenderness - Neurological Exam Neurological exam: Present: altered, other (There is no obvious facial droop. Extraocular movements are intact bilaterally. Patient moves her bilateral upper extremities to command, and spontaneously.) - Psychiatric Psychiatric exam: Present: flat affect - Skin Skin exam: Present: warm, dry, intact, normal color. Absent: rash ED Course Vital Signs 06/24/20 06/24/20 06/24/20 18:10 18:14 18:21 Temperature Pulse Rate 91 H 86 Respiratory 14 22 Rate Blood Pressure 153/91 153/91 Blood Pressure [Right] O2 Sat by Pulse 92 100 98 Oximetry 06/24/20 06/24/20 06/24/20 18:30 18:41 18:51 Temperature Pulse Rate Respiratory 23 23 22 Rate Blood Pressure 145/86 145/86 145/86 Blood Pressure [Right] O2 Sat by Pulse 97 98 100 Oximetry 06/24/20 06/24/20 06/24/20 19:00 19:11 19:21 Temperature Pulse Rate Respiratory 24 22 25 H Rate Blood Pressure 142/84 142/84 142/84 Blood Pressure [Right] O2 Sat by Pulse 100 Oximetry 06/24/20 06/24/20 06/24/20 19:30 19:41 19:51 Temperature Pulse Rate Respiratory 24 22 24 Rate Blood Pressure 138/80 138/80 138/80 Blood Pressure [Right] O2 Sat by Pulse Oximetry 06/24/20 06/24/20 06/24/20 20:01 20:11 20:21 Temperature Pulse Rate Respiratory 9 L 23 23 Rate Blood Pressure 135/90 135/90 135/90 Blood Pressure [Right] O2 Sat by Pulse Oximetry 06/24/20 06/24/20 06/24/20 20:22 20:29 20:30 Temperature 99 F Pulse Rate 74 75 Respiratory 20 20 23 Rate Blood Pressure 154/80 Blood Pressure 135/90 [Right] O2 Sat by Pulse 99 99 98 Oximetry 06/24/20 06/24/20 06/24/20 20:41 20:51 21:00 Temperature Pulse Rate 82 77 85 Respiratory 18 20 23 Rate Blood Pressure 154/80 154/80 149/81 Blood Pressure [Right] O2 Sat by Pulse 98 98 97 Oximetry 06/24/20 06/24/20 06/24/20 21:11 21:21 21:30 Temperature Pulse Rate 88 80 74 Respiratory 25 H 25 H 23 Rate Blood Pressure 149/81 149/81 130/76 Blood Pressure [Right] O2 Sat by Pulse 97 98 97 Oximetry 06/24/20 06/24/20 06/24/20 21:41 21:51 22:01 Temperature Pulse Rate 73 75 77 Respiratory 21 22 15 Rate Blood Pressure 130/76 149/81 121/69 Blood Pressure [Right] O2 Sat by Pulse 97 97 98 Oximetry 06/24/20 06/24/2006/24/20 22:04 22:11 22:21 Temperature Pulse Rate 81 77 73 Respiratory 10 L 15 Rate Blood Pressure 149/81 121/69 121/69 Blood Pressure [Right] O2 Sat by Pulse 99 97 Oximetry 06/24/20 06/24/20 06/24/20 22:30 22:41 22:42 Temperature Pulse Rate 77 75 74 Respiratory 17 20 18 Rate Blood Pressure 158/87 158/87 Blood Pressure 121/69 [Right] O2 Sat by Pulse 97 97 97 Oximetry 06/24/20 06/24/20 06/24/20 22:51 23:00 23:11 Temperature Pulse Rate 72 72 72 Respiratory 19 15 19 Rate Blood Pressure 154/79 154/79 Blood Pressure [Right] O2 Sat by Pulse 98 98 98 Oximetry 06/24/20 23:21 Temperature Pulse Rate 69 Respiratory 21 Rate Blood Pressure 154/79 Blood Pressure [Right] O2 Sat by Pulse 97 Oximetry - Reevaluation(s) Reevaluation #1: 06/24/20 19:22 Dr Nicolle Chavarria to assume care We will defer to the inpatient team to follow-up on urinalysis ED Medical Decision Making - Lab Data Result diagrams: 06/25/20 07:26 06/25/20 07:26 Vital Signs 06/24/20 18:14 Pulse Rate 91 H Respiratory 14 Rate Blood Pressure 153/91 O2 Sat by Pulse 100 Oximetry Oral temperature 99.3 degrees Lab Results 06/24/20 06/24/20 06/24/20 Range/Units 18:26 18:26 18:26 PT 13.7 (12.2-14.9) Sec. INR 1.04 (0.87-1.13) APTT 25.9 (24.2-36.6) Sec. Thrombin Time 14.8 L (15.1-19.6) Sec. Sodium 139 (137-145) mmol/L Potassium 3.7 (3.6-5.0) mmol/L Chloride 98.6 (98-107) mmol/L Carbon Dioxide 26 (22-30) mmol/L Anion Gap 18 mmol/L BUN 10 (7-17) mg/dL Creatinine 0.3 L (0.6-1.2) mg/dL Estimated GFR > 60 ml/min BUN/Creatinine Ratio 33 % Glucose 118 H (65-100) mg/dL Calcium 10.1 (8.4-10.2) mg/dL Magnesium (1.7-2.3) mg/dL Total Bilirubin 0.50 (0.1-1.2) mg/dL AST 22 (5-40) units/L ALT 18 (7-56) units/L Alkaline Phosphatase 116 (35-129) units/L Total Creatine Kinase 89 (30-135) units/L CK-MB (CK-2) < 1.0 (0.0-4.0) ng/mL CK-MB (CK-2) Rel Index 1.1 (0-4) Troponin T < 0.010 (0.00-0.029) ng/mL Total Protein 7.6 (6.3-8.2) g/dL Albumin 4.4 (3.9-5) g/dL Albumin/Globulin Ratio 1.4 % Salicylates (2.8-20.0) mg/dL Acetaminophen (10.0-30.0) ug/mL Plasma/Serum Alcohol < 0.01 (0-0.07) % 06/24/20 06/24/20 06/24/20 Range/Units 18:26 18:26 18:26 PT (12.2-14.9) Sec. INR (0.87-1.13) APTT (24.2-36.6) Sec. Thrombin Time (15.1-19.6) Sec. Sodium (137-145) mmol/L Potassium (3.6-5.0) mmol/L Chloride (98-107) mmol/L Carbon Dioxide (22-30) mmol/L Anion Gap mmol/L BUN (7-17) mg/dL Creatinine (0.6-1.2) mg/dL Estimated GFR ml/min BUN/Creatinine Ratio % Glucose (65-100) mg/dL Calcium (8.4-10.2) mg/dL Magnesium 2.60 H (1.7-2.3) mg/dL Total Bilirubin (0.1-1.2) mg/dL AST (5-40) units/L ALT (7-56) units/L Alkaline Phosphatase (35-129) units/L Total Creatine Kinase (30-135) units/L CK-MB (CK-2) (0.0-4.0) ng/mL CK-MB (CK-2) Rel Index (0-4) Troponin T (0.00-0.029) ng/mL Total Protein (6.3-8.2) g/dL Albumin (3.9-5) g/dL Albumin/Globulin Ratio % Salicylates < 0.3 L (2.8-20.0) mg/dL Acetaminophen 5.0 L (10.0-30.0) ug/mL Plasma/Serum Alcohol (0-0.07) % Lab Results 06/24/20 06/24/20 06/24/20 Range/Units 18:26 18:26 18:26 PT 13.7 (12.2-14.9) Sec. INR 1.04 (0.87-1.13) APTT 25.9 (24.2-36.6) Sec. Thrombin Time 14.8 L (15.1-19.6) Sec. Sodium 139 (137-145) mmol/L Potassium 3.7 (3.6-5.0) mmol/L Chloride 98.6 (98-107) mmol/L Carbon Dioxide 26 (22-30) mmol/L Anion Gap 18 mmol/L BUN 10 (7-17) mg/dL Creatinine 0.3 L (0.6-1.2) mg/dL Estimated GFR > 60 ml/min BUN/Creatinine Ratio 33 % Glucose 118 H (65-100) mg/dL Calcium 10.1 (8.4-10.2) mg/dL Magnesium (1.7-2.3) mg/dL Total Bilirubin 0.50 (0.1-1.2) mg/dL AST 22 (5-40) units/L ALT 18 (7-56) units/L Alkaline Phosphatase 116 (35-129) units/L Total Creatine Kinase 89 (30-135) units/L CK-MB (CK-2) < 1.0 (0.0-4.0) ng/mL CK-MB (CK-2) Rel Index 1.1 (0-4) Troponin T < 0.010 (0.00-0.029) ng/mL Total Protein 7.6 (6.3-8.2) g/dL Albumin 4.4 (3.9-5) g/dL Albumin/Globulin Ratio 1.4 % Salicylates (2.8-20.0) mg/dL Acetaminophen (10.0-30.0) ug/mL Plasma/Serum Alcohol < 0.01 (0-0.07) % 06/24/20 06/24/20 06/24/20 Range/Units 18:26 18:26 18:26 PT (12.2-14.9) Sec. INR (0.87-1.13) APTT (24.2-36.6) Sec. Thrombin Time (15.1-19.6) Sec. Sodium (137-145) mmol/L Potassium (3.6-5.0) mmol/L Chloride (98-107) mmol/L Carbon Dioxide (22-30) mmol/L Anion Gap mmol/L BUN (7-17) mg/dL Creatinine (0.6-1.2) mg/dL Estimated GFR ml/min BUN/Creatinine Ratio % Glucose (65-100) mg/dL Calcium (8.4-10.2) mg/dL Magnesium 2.60 H (1.7-2.3) mg/dL Total Bilirubin (0.1-1.2) mg/dL AST (5-40) units/L ALT (7-56) units/L Alkaline Phosphatase (35-129) units/L Total Creatine Kinase (30-135) units/L CK-MB (CK-2) (0.0-4.0) ng/mL CK-MB (CK-2) Rel Index (0-4) Troponin T (0.00-0.029) ng/mL Total Protein (6.3-8.2) g/dL Albumin (3.9-5) g/dL Albumin/Globulin Ratio % Salicylates < 0.3 L (2.8-20.0) mg/dL Acetaminophen 5.0 L (10.0-30.0) ug/mL Plasma/Serum Alcohol (0-0.07) % - EKG Data -: EKG Interpreted by [facility] EKG shows normal: sinus rhythm Rate: normal - EKG Data 06/24/20 18:50 Sinus rhythm, 83 bpm, normal axis, QTC within normal limits, left ventricular hypertrophy, minimal motion artifact, the EKG is not a STEMI - Radiology Data Radiology results: report reviewed, image reviewed Print Report Referring Physician: BALDEMAR ZALDIVAR Patient Name: JEEVAN CORNEJO Date of : 1960 Sex: Female Report Date: 2020-06-24 Report Status: Finalized Findings [facility] [place] [address] [id number] Cat Scan Report Signed Patient: JEEVAN GARLAND MR#: [id number] : 1960 Acct:[id number] Age/Sex: 60 / F ADM Date: 06/24/20 Loc: ED Attending Dr: Ordering Physician: BALDEMAR ZALDIVAR MD Date of Service: 06/24/20 Procedure(s): CT head/brain wo con Accession Number(s): [id number] cc: BALDEMAR ZALDIVAR MD CT head/brain wo con INDICATION / CLINICAL INFORMATION: 60 years Female; MAIN. TECHNIQUE: Routine CT head without contrast. All CT scans at this location are performed using CT dose reduction for ALARA by means of automated exposure control. COMPARISON: 05/09/2020 FINDINGS: BRAIN / INTRACRANIAL CONTENTS: No acute hemorrhage, mass effect, midline shift, hydrocephalus, or acute, large territorial infarct. Mild cerebral atrophy in the frontal regions. No significant white matter abnormality. CRANIOCERVICAL JUNCTION: No significant abnormality. ORBITS: No significant abnormality of visualized orbits. SINUSES / MASTOIDS: There is partial opacification of the ethmoids on the right. Mild to moderate mucosal thickening seen in the ethmoids on the left. ADDITIONAL FINDINGS: None. IMPRESSION: 1. No focal mass, hemorrhage, hydrocephalus, or acute, large territorial infarct. CODE STROKE: Exam Completed (ENGINE RESEARCH ENGINEER/CDT): 06/24/2020 5:11 PM Exam Reviewed (ENGINE RESEARCH ENGINEER/CDT) : 5:15 PM Time of Communication (ENGINE RESEARCH ENGINEER/CDT): 5:19 PM Licensed Practitioner Receiving Report: Dr. Zaldivar Signer Name: Myke Barragan MD, III Signed: 06/24/2020 6:20 PM Workstation Name: [id number] Transcribed By: HR Dictated By: Myke Barragan MD Electronically Authenticated By: Myke Barragan MD Signed Date/Time: 06/24/201819 DD/ 13 - Medical Decision Making Differential diagnosis, including but not limited to: Seizure, pneumonia, urinary tract infection, stroke, postictal state, conversion disorder Assessment and plan: 60-year-old female with chronic weakness and debility, whose examination today appears to be similar to prior documented examinations, and his examination today similar to my previously documented examination from July 2019. Given that we do not know her last exact known well time, TPA is not indicated. Furthermore, the patient is chronically disabled and bedbound, for years, therefore, large vessel occlusion intervention is unlikely to provide any significant benefit to the patient's ability or quality of life. Furthermore, the patient has had multiple MRIs at this hospital which were negative for acute insults or infarctions. She is seen in consultation with stroke neurology, who agrees with the aforementioned. Admission is recommended for observation, and further diagnostics, x-ray of the chest pending, urinalysis pending, rectal temperature pending. We will load the patient with Keppra. We will give her fluids. Plan of care is to admit. Hospital physician is paged to arrange admission. Critical care attestation.: If time is entered above; I have spent that time in minutes in the direct care of this critically ill patient, excluding procedure time. ED Disposition Clinical Impression: Malnutrition, Failure to thrive, Weakness Disposition: OP ADMIT IP TO THIS HOSP Is pt being admited?: Yes Condition: Fair
[2020-06-24] MEDS ORDERED: LACTATED RINGERS 1,000 ML IV ONE (18:53)
[2020-06-24] MEDS ORDERED: levETIRAcetam 1000 MG/NS 0.75% 1,000 MG/100 ML BAG IV ONE (19:03)
[2020-06-24 19:06] LABS: Alanine Aminotransferase 18 units/L (7-56); Albumin 4.4 g/dL (3.9-5); Blood Urea Nitrogen 10 mg/dL (7-17); Calcium 10.1 mg/dL (8.4-10.2); Hemolysis Index 5
[2020-06-24 19:07] LABS: INR 1.04 (0.87-1.13)
[2020-06-24 19:08] LABS: Partial Thromboplastin Time 25.9 Sec. (24.2-36.6)
[2020-06-24 19:10] LABS: Thrombin Time 14.8 Sec. (15.1-19.6)
[2020-06-24 19:13] LABS: BUN/Creatinine Ratio 33; Creatine Kinase MB < 1.0 ng/mL (0.0-4.0)
[2020-06-24] MEDS ORDERED: ASPIRIN 81 MG TAB CHEW PO ONE (19:22)
[2020-06-24 19:36] LABS: Bacteria,Urine 2+ /HPF (Negative); Bilirubin,Urine NEG (Negative); Blood,Urine SM (Negative); Color,Urine Yellow (Yellow); Mucus,Urine FEW /HPF; WBC,Urine > 182.0 /HPF (0.0-6.0)
--- NOTE | 2020-06-24 20:13 | XRay Report ---
CHEST 1 VIEW INDICATION / CLINICAL INFORMATION: weakness. COMPARISON: 05/09/2020 FINDINGS: SUPPORT DEVICES: None. HEART / MEDIASTINUM: No significant abnormality. LUNGS / PLEURA: No significant pulmonary or pleural abnormality. No pneumothorax. ADDITIONAL FINDINGS: No significant additional findings. IMPRESSION: 1. No acute findings. No significant interval change Signer Name: William Fulton MD Signed: 06/24/2020 8:08 PM Workstation Name: [id number]
--- NOTE | 2020-06-24 21:24 | History and Physical Report ---
History of Present Illness Date of examination: 06/24/20 Date of admission: 06/24/2020 Chief complaint: Right-sided weakness since a.m. History of present illness: 60-year-old Singaporean-speaking female brought in by EMS for right-sided weakness. Patient had similar episode 1 month ago and a complete work-up which was unremarkable. Patient is [place]an-speaking and there is a language barrier present. Patient says that her weakness on the right side is more than the usual. Telemetry neurology was consulted and they suggested a complete work-up again. Hence the admission. No seizures. Patient has a history of hypertension hyperlipidemia and seizures. Patient is also chronically bedbound. Patient has both lower extremity weakness. Etiology unknown. Possible multiple sclerosis. No recent seizures. - Past Medical History Hypertension: Yes Additional medical history: MS - Surgical History Additional Surgical History: Unknown - Social History Smoking Status: Never Smoker Substance Use Type: None - Medications Home Medications: Home Medications Medication Instructions Recorded Confirmed Last Taken Type atenoloL [Tenormin] 25 mg PO DAILY #30 tab 12/15/17 05/09/20 Unknown Rx LORazepam [Lorazepam] 1 mg PO QDAY 08/17/19 05/09/20 Unknown History Docusate Sodium [Colace CAP] 100 mg PO BID capsule 08/22/19 05/09/20 Unknown Rx Baclofen 20 mg PO BID 05/09/20 05/09/20 Unknown History AtorvaSTATin [Lipitor] 80 mg PO QHS tablet 05/11/20 Unknown Rx Keppra TAB 1,000 mg PO BID #30 05/11/20 Unknown Rx clonazePAM 1 mg PO TID #90 05/11/20 Unknown Rx Review of Systems ROS: Stated complaint: STROKE Other details as noted in HPI Comment: Unobtainable due to pts medical conditions Medications and Allergies Allergies Allergy/AdvReac Type Severity Reaction Status Date / Time No Known Allergies Allergy Verified 05/09/20 17:51 Home Medications Medication Instructions Recorded Confirmed Last Taken Type atenoloL [Tenormin] 25 mg PO DAILY #30 tab 12/15/17 05/09/20 Unknown Rx LORazepam [Lorazepam] 1 mg PO QDAY 08/17/19 05/09/20 Unknown History Docusate Sodium [Colace CAP] 100 mg PO BID capsule 08/22/19 05/09/20 Unknown Rx Baclofen 20 mg PO BID 05/09/20 05/09/20 Unknown History AtorvaSTATin [Lipitor] 80 mg PO QHS tablet 05/11/20 Unknown Rx Keppra TAB 1,000 mg PO BID #30 05/11/20 Unknown Rx clonazePAM 1 mg PO TID #90 05/11/20 Unknown Rx Exam - Constitutional Vitals: Temp Pulse Resp BP Pulse Ox 99 F 74 20 135/90 99 06/24/20 20:22 06/24/20 20:22 06/24/20 20:29 06/24/20 20:22 06/24/20 20:29 General appearance: Present: no acute distress, well-nourished - EENT Eyes: Present: PERRL ENT: hearing intact, clear oral mucosa - Neck Neck: Present: supple, normal ROM - Respiratory Respiratory effort: normal Respiratory: bilateral: CTA - Cardiovascular Heart rate: 78 Rhythm: regular Heart Sounds: Present: S1 & S2. Absent: rub, click - Extremities Extremities: pulses symmetrical, No edema Peripheral Pulses: within normal limits - Abdominal General gastrointestinal: Present: soft, non-tender, non-distended, normal bowel sounds Female genitourinary: Present: normal - Integumentary Integumentary: Present: clear, warm, dry - Musculoskeletal Musculoskeletal: right sided weakness - Psychiatric Psychiatric: appropriate mood/affect, intact judgment & insight - Neurologic Neurologic: CNII-XII intact, focal deficits (Right-sided weakness present. 3/5 power in right upper and right lower extremity.), moves all extremities HEART Score - HEART Score Troponin: Troponin T < 0.010 ng/mL (0.00-0.029) 06/24/20 18:26 Results - Labs CBC & Chem 7: 06/24/20 18:26 Labs: Laboratory Last Values PT 13.7 Sec. (12.2-14.9) 06/24/20 18: INR 1.04 (0.87-1.13) 06/24/20 18: APTT 25.9 Sec. (24.2-36.6) 06/24/20 18:26 Thrombin Time 14.8 Sec. (15.1-19.6) L 06/24/20 18:26 Sodium 139 mmol/L (137-145) 06/24/20 18: Potassium 3.7 mmol/L (3.6-5.0) 06/24/20 18:26 Chloride 98.6 mmol/L (98-107) 06/24/20 18:26 Carbon Dioxide 26 mmol/L (22-30) 06/24/20 18:26 Anion Gap 18 mmol/L 06/24/20 18:26 BUN 10 mg/dL (7-17) 06/24/20 18:26 Creatinine 0.3 mg/dL (0.6-1.2) L 06/24/20 18:26 Estimated GFR > 60 ml/min 06/24/20 18:26 BUN/Creatinine Ratio 33 % 06/24/20 18:26 Glucose 118 mg/dL (65-100) H 06/24/20 18:26 Calcium 10.1 mg/dL (8.4-10.2) 06/24/20 18:26 Magnesium 2.60 mg/dL (1.7-2.3) H 06/24/20 18:26 Total Bilirubin 0.50 mg/dL (0.1-1.2) 06/24/20 18:26 AST 22 units/L (5-40) 06/24/20 18:26 ALT 18 units/L (7-56) 06/24/20 18:26 Alkaline Phosphatase 116 units/L (35-129) 06/24/20 18:26 Total Creatine Kinase 89 units/L (30-135) 06/24/20 18:26 CK-MB (CK-2) < 1.0 ng/mL (0.0-4.0) 06/24/20 18:26 CK-MB (CK-2) Rel Index 1.1 (0-4) 06/24/20 18:26 Troponin T < 0.010 ng/mL (0.00-0.029) 06/24/20 18:26 Total Protein 7.6 g/dL (6.3-8.2) 06/24/20 18:26 Albumin 4.4 g/dL (3.9-5) 06/24/20 18:26 Albumin/Globulin Ratio 1.4 % 06/24/20 18:26 TSH 1.110 mlU/mL (0.270-4.200) 06/24/20 18:26 Urine Color Yellow (Yellow) 06/24/20 19:02 Urine Turbidity Turbid (Clear) 06/24/20 19:02 Urine pH 6.0 (5.0-7.0) 06/24/20 19:02 Ur Specific [employer] 1.016 (1.003-1.030) 06/24/20 19:02 Urine Protein 100 mg/dl mg/dL (Negative) 06/24/20 19:02 Urine Glucose (UA) Neg mg/dL (Negative) 06/24/20 19: Urine Ketones Neg mg/dL (Negative) 06/24/20 19: Urine Blood Sm (Negative) 06/24/20 19:02 Urine Nitrite Neg (Negative) 06/24/20 19: Urine Bilirubin Neg (Negative) 06/24/20 19: Urine Urobilinogen 2.0 mg/dL (<2.0) 06/24/20 19:02 Ur Leukocyte Esterase Lg (Negative) 06/24/20 19:02 Urine WBC (Auto) > 182.0 /HPF (0.0-6.0) H 06/24/20 19:02 Urine RBC (Auto) 131.0 /HPF (0.0-6.0) 06/24/20 19:02 U Epithel Cells (Auto) 69.0 /HPF (0-13.0) H 06/24/20 19:02 Urine Bacteria (Auto) 2+ /HPF (Negative) 06/24/20 19:02 Urine WBC Clumps 3+ /HPF 06/24/20 19:02 Urine Mucus Few /HPF 06/24/20 19:02 Salicylates < 0.3 mg/dL (2.8-20.0) L 06/24/20 18:26 Acetaminophen 5.0 ug/mL (10.0-30.0) L 06/24/20 18:26 Plasma/Serum Alcohol < 0.01 % (0-0.07) 06/24/20 18:26 BMP 06/24/20 18:26 Sodium 139 Potassium 3.7 Chloride 98.6 Carbon Dioxide 26 BUN 10 Creatinine 0.3 L Glucose 118 H Calcium 10.1 Cardiac Enzymes 06/24/20 Range/Units 18: Total Creatine Kinase 89 (30-135) units/L CK-MB (CK-2) < 1.0 (0.0-4.0) ng/mL Troponin T < 0.010 (0.00-0.029) ng/mL Liver Function 06/24/20 Range/Units 18:26 Total Bilirubin 0.50 (0.1-1.2) mg/dL AST 22 (5-40) units/L ALT 18 (7-56) units/L Alkaline Phosphatase 116 (35-129) units/L Albumin 4.4 (3.9-5) g/dL Urine 06/24/20 Range/Units 19:02 Urine Color Yellow (Yellow) Urine pH 6.0 (5.0-7.0) Ur Specific [employer] 1.016 (1.003-1.030) Urine Protein 100 mg/dl (Negative) mg/dL Urine Glucose (UA) Neg (Negative) mg/dL Assessment and Plan Advance Directives: Yes (Full code) VTE prophylaxis?: Chemical Plan of care discussed with patient/family: Yes - Patient Problems (1) Acute CVA (cerebrovascular accident) Current Visit: Yes Status: Acute Plan to address problem: CVA work-up Neurology consult requested PT and OT (2) Urinary tract infection Current Visit: Yes Status: Acute Plan to address problem: Patient initiated on IV Rocephin pending urine cultures (3) Hypertension Current Visit: Yes Status: Chronic Qualifiers: Hypertension type: essential hypertension Qualified Code(s): I10 - Essential (primary) hypertension Plan to address problem: Continue antihypertensives (4) Hyperlipidemia Current Visit: Yes Status: Chronic Qualifiers: Hyperlipidemia type: mixed hyperlipidemia Qualified Code(s): E78.2 - Mixed hyperlipidemia Plan to address problem: Continue statins (5) Seizure disorder Current Visit: Yes Status: Chronic Plan to address problem: Continue Keppra (6) DVT prophylaxis Current Visit: Yes Status: Acute Plan to address problem: On heparin and GI prophylaxis
[2020-06-24] MEDS ORDERED: oxyCODONE /ACETAMINOPHEN 5-325MG TAB PO PRN (21:26)
[2020-06-24] MEDS ORDERED: ACETAMINOPHEN 325 MG TAB PO PRN (21:26)
[2020-06-24] MEDS ORDERED: ONDANSETRON 4 MG/2 ML INJ IV PRN (21:26)
[2020-06-24] MEDS ORDERED: HYDROmorphone 1 MG/1 ML INJ IV PRN (21:26)
[2020-06-24] MEDS ORDERED: KEPPRA 1000 MG PO SCH (22:00)
[2020-06-24] MEDS: BACLOFEN 10 MG TAB PO SCH (22:00)
[2020-06-24] MEDS ORDERED: BACLOFEN 20 MG PO SCH (22:00)
[2020-06-24] MEDS: DOCUSATE SODIUM 100 MG CAP PO SCH (22:02)
[2020-06-24] MEDS: atenoloL 25 MG TAB PO SCH (22:04)
[2020-06-24] MEDS: HEPARIN 5,000 UNIT/1 ML VIAL SUB-Q SCH (22:08)
[2020-06-25] MEDS: HEPARIN 5,000 UNIT/1 ML VIAL SUB-Q SCH ×2 (06:26→21:04)
[2020-06-25 07:46] LABS: Basophils # (Auto) 0.1 K/mm3 (0.0-0.1); Basophils % (Auto) 0.7 % (0.0-1.8); Eosinophils % (Auto) 0.3 % (0.0-4.3); Hematocrit 35.6 % (30.3-42.9); Hemoglobin 12.3 gm/dl (10.1-14.3); Lymphocytes # (Auto) 2.3 K/mm3 (1.2-5.4); Lymphocytes % (Auto) 24.2 % (13.4-35.0); Mean Corpuscular HGB Conc 35 % (30-34); Mean Corpuscular Volume 84 fl (79-97); Monocytes # (Auto) 0.4 K/mm3 (0.0-0.8); Monocytes % (Auto) 4.3 % (0.0-7.3); Platelet Count 174 K/mm3 (140-440); Red Blood Count 4.25 M/mm3 (3.65-5.03); Red Cell Distribution Width 14.1 % (13.2-15.2)
[2020-06-25] MEDS ORDERED: CLONAZEPAM 1 MG PO SCH (08:00)
[2020-06-25] MEDS: clonazePAM 0.5 MG TAB PO SCH ×3 (08:00→21:05)
[2020-06-25 08:11] LABS: Alanine Aminotransferase 16 units/L (7-56); Albumin 4.1 g/dL (3.9-5); Blood Urea Nitrogen 9 mg/dL (7-17); Calcium 10.3 mg/dL (8.4-10.2); HDL Cholesterol 80 mg/dL (40-59); Hemolysis Index 11; LDL Cholesterol,Direct 89 mg/dL (50-130)
[2020-06-25 08:24] LABS: BUN/Creatinine Ratio 45
[2020-06-25] MEDS: atenoloL 25 MG TAB PO SCH (09:34)
[2020-06-25] MEDS: BACLOFEN 10 MG TAB PO SCH ×2 (09:34→21:05)
[2020-06-25] MEDS: cefTRIAXone/NS 2 GM/100 ML 2 GM/100 ML BAG IV SCH (09:35)
[2020-06-25] MEDS: DOCUSATE SODIUM 100 MG CAP PO SCH ×2 (09:35→21:05)
[2020-06-25] MEDS: levETIRAcetam 500 MG TAB PO SCH ×2 (09:35→21:05)
[2020-06-25] MEDS: SODIUM CHLORIDE 0.9% 1000 ML 1,000 ML IV SCH (13:19)
--- NOTE | 2020-06-25 13:55 | Magnetic Resonance Report ---
MRI BRAIN WITHOUT CONTRAST INDICATION / CLINICAL INFORMATION: Cerebrovascular accident. Right-sided weakness. TECHNIQUE: Multiplanar, multisequence MR images of the brain were obtained. COMPARISON: MRI brain 05/10/2020 and 08/19/2019. FINDINGS: BRAIN / INTRACRANIAL CONTENTS: A 6 mm diameter area of abnormal signal intensity is seen in the subarachnoid space adjacent to the l eft frontal operculum (series 8 image 15 and series 9 image 15). This may represent an artifact or ca nnot entirely exclude the presence of a small mass in the subarachnoid space. Further evaluation to i nclude MRI of brain with intravenous contrast is suggested. In addition at the time of postcontrast i maging coronal scans obtained with T2 and FLAIR sequences should also be obtained. There is dilatation of the subarachnoid space over the convexity of both cerebral hemispheres. This m ay be manifestation of parenchymal volume loss. This finding is stable in comparison to 05/10/2020 and 08/19/2019. Ventricles and cortical sulci are normal in size and configuration. There is no mass eff ect. No evidence of intracranial hemorrhage or extra-axial fluid collection is seen. No significant a reas of abnormal brain parenchymal signal intensity are identified. There is no indication of remote cortical infarction. Diffusion weighted scans are negative. There is no indication of acute ischemic injury. The brainstem and cerebellum have an unremarkable appearance. MIDLINE STRUCTURES:No abnormalities are seen to involve the pituitary gland. Pineal region has an unr emarkable appearance. CRANIOCERVICAL JUNCTION: No abnormalities are identified at the craniocervical junction. VASCULAR FLOW-VOIDS: Normal flow-voids are present within the major intracranial vessels. ORBITS: The orbits have an unremarkable appearance. SINUSES / MASTOIDS: There is no indication of inflammatory disease in the paranasal sinuses or mastoi d air cells. ADDITIONAL FINDINGS: None. IMPRESSION: 1. 6 mm finding in the subarachnoid space adjacent to the left frontal operculum. Follow-up with MRI of brain with contrast is advised. In addition please obtain this coronal T2 and FLAIR sequences for further evaluation of this finding. 2. Dilatation of the subarachnoid space over the convexity of both cerebral hemispheres consistent wi th parenchymal volume loss. 3. No indication of recent or remote infarction. Signer Name: Alf Gonzalez MD Signed: 06/25/2020 1:50 PM Workstation Name: [email or web address]
--- NOTE | 2020-06-25 15:40 | Progress Note ---
Assessment and Plan - Patient Problems (1) Acute CVA (cerebrovascular accident) Current Visit: Yes Status: Acute Plan to address problem: r/o acute CVA 06/24 CTh showed No focal mass, hemorrhage, hydrocephalus, or acute, large terr itorial infarct. 06/25 MRI brain shows 1. 6 mm finding in the subarachnoid space adjacent to the left frontal operculum., follow-up with MRI of brain with contrast is advised. In addition please obtain this coronal T2 and FLAIR sequences for further evaluation of this finding. 2. Dilatation of the subarachnoid space over the convexity of both cerebral hemispheres consistent with parenchymal volume loss. 3. No indication of recent or remote infarction. 06/25 CTA head/neck pending Neurology consult PT/OT/ST consult Statin therapy (2) Malnutrition Current Visit: Yes Status: Acute Plan to address problem: Nutrition consult (3) Urinary tract infection Current Visit: Yes Status: Acute Plan to address problem: 06/24 UA showed large leukocyte esterase, negative nitrates 06/24 urine culture is pending IV antibiotics (4) Weakness Current Visit: Yes Status: Chronic Plan to address problem: Patient is bedbound for 3 years and uses a wheelchair at home Patient exhibits excessive foot drop in bilateral lower extremities PT consulted (5) Hyperlipidemia Current Visit: Yes Status: Chronic Qualifiers: Hyperlipidemia type: mixed hyperlipidemia Qualified Code(s): E78.2 - Mixed hyperlipidemia Plan to address problem: Continue statin therapy 06/25 lipid profile: Triglyceride 45, cholesterol 168, LDL 89, HDL 80 (6) Hypertension Current Visit: Yes Status: Chronic Qualifiers: Hypertension type: essential hypertension Qualified Code(s): I10 - Essential (primary) hypertension Plan to address problem: Continue home antihypertensive regimen Blood pressure monitor per protocol (7) Seizure disorder Current Visit: Yes Status: Chronic Plan to address problem: Continue antiepileptics with Keppra Seizure precautions Aspiration precautions (8) DVT prophylaxis Current Visit: Yes Status: Acute Plan to address problem: Heparin subcu SCDs to bilateral lower extremities History Interval history: 60-year-old Slovak-speaking female with a history of seizures, hypertension, hyperlipidemia who presented with the emergency department on 06/24 with right- sided weakness. Patient had a similar episode 1 month ago and a complete work- up was unremarkable. Of note patient is chronically bedbound and has weakness to bilateral lower extremities. She uses a wheelchair to get around at home. She has significant bilateral foot drop which she attributes to a status epilepticus episode in [place]. Neurology has been consulted for possible seizure versus CVA. PT/OT/ST has been called have been consulted as well as nutrition for nutritional supplements. Patient complains of dizziness when turning her head to the right side, right facial droop and has decreased sensation to the right. Patient also has right scleral injection with no drainage or itching. May have relief from warm compresses. Hospitalist Physical - Constitutional Vitals: Temp Pulse Resp BP Pulse Ox 98.0 F 79 19 156/86 99 06/25/20 08:08 06/25/20 12:00 06/25/20 11:50 06/25/20 09:34 06/25/20 11:50 General appearance: Present: no acute distress, well-nourished - EENT Eyes: Present: PERRL, conjunctival injection ENT: hearing intact, clear oral mucosa - Neck Neck: Present: supple, normal ROM - Respiratory Respiratory effort: normal Respiratory: bilateral: CTA - Cardiovascular Rhythm: regular Heart Sounds: Present: S1 & S2. Absent: systolic murmur, diastolic murmur - Extremities Extremities: no ischemia, pulses intact, pulses symmetrical, No edema, normal temperature, normal color Peripheral Pulses: within normal limits - Abdominal General gastrointestinal: soft, non-tender, non-distended, normal bowel sounds - Integumentary Integumentary: Present: clear, warm, dry - Psychiatric Psychiatric: cooperative - Neurologic Neurologic: CNII-XII intact, focal deficits (Decreased right-sided sensation, right facial droop), no moves all extremities (Normal bilateral lower extremities) - Allied Health Allied health notes reviewed: nursing HEART Score - HEART Score Troponin: Troponin T < 0.010 ng/mL (0.00-0.029) 06/24/20 18:26 Results - Labs CBC & Chem 7: 06/25/20 07:26 06/25/20 07:26 Labs: Laboratory Last Values WBC 9.6 K/mm3 (4.5-11.0) 06/25/20 07:26 RBC 4.25 M/mm3 (3.65-5.03) 06/25/20 07:26 Hgb 12.3 gm/dl (10.1-14.3) 06/25/20 07:26 Hct 35.6 % (30.3-42.9) 06/25/20 07: MCV 84 fl (79-97) 06/25/20 07: MCH 29 pg (28-32) 06/25/20 07:26 MCHC 35 % (30-34) H 06/25/20 07:26 RDW 14.1 % (13.2-15.2) 06/25/20 07:26 Plt Count 174 K/mm3 (140-440) 06/25/20 07:26 Lymph % (Auto) 24.2 % (13.4-35.0) 06/25/20 07:26 [place] % (Auto) 4.3 % (0.0-7.3) 06/25/20 07:26 Eos % (Auto) 0.3 % (0.0-4.3) 06/25/20 07: Baso % (Auto) 0.7 % (0.0-1.8) 06/25/20 07:26 Lymph # (Auto) 2.3 K/mm3 (1.2-5.4) 06/25/20 07:26 [place] # (Auto) 0.4 K/mm3 (0.0-0.8) 06/25/20 07:26 Eos # (Auto) 0.0 K/mm3 (0.0-0.4) 06/25/20 07:26 Baso # (Auto) 0.1 K/mm3 (0.0-0.1) 06/25/20 07:26 Seg Neutrophils % 70.5 % (40.0-70.0) H 06/25/20 07:26 Seg Neutrophils # 6.8 K/mm3 (1.8-7.7) 06/25/20 07:26 PT 13.7 Sec. (12.2-14.9) 06/24/20 18: INR 1.04 (0.87-1.13) 06/24/20 18:26 APTT 25.9 Sec. (24.2-36.6) 06/24/20 18:26 Thrombin Time 14.8 Sec. (15.1-19.6) L 06/24/20 18:26 Sodium 143 mmol/L (137-145) 06/25/20 07:26 Potassium 4.1 mmol/L (3.6-5.0) 06/25/20 07:26 Chloride 102.6 mmol/L (98-107) 06/25/20 07:26 Carbon Dioxide 34 mmol/L (22-30) H D 06/25/20 07:26 Anion Gap 11 mmol/L 06/25/20 07:26 BUN 9 mg/dL (7-17) 06/25/20 07:26 Creatinine 0.2 mg/dL (0.6-1.2) L 06/25/20 07:26 Estimated GFR > 60 ml/min 06/25/20 07:26 BUN/Creatinine Ratio 45 % 06/25/20 07:26 Glucose 100 mg/dL (65-100) 06/25/20 07:26 Hemoglobin A1c 5.8 % (4-6) 06/25/20 07:26 Calcium 10.3 mg/dL (8.4-10.2) H 06/25/20 07:26 Magnesium 2.60 mg/dL (1.7-2.3) H 06/24/20 18:26 Total Bilirubin 0.60 mg/dL (0.1-1.2) 06/25/20 07:26 AST 22 units/L (5-40) 06/25/20 07:26 ALT 16 units/L (7-56) 06/25/20 07:26 Alkaline Phosphatase 108 units/L (35-129) 06/25/20 07:26 Total Creatine Kinase 89 units/L (30-135) 06/24/20 18:26 CK-MB (CK-2) < 1.0 ng/mL (0.0-4.0) 06/24/20 18:26 CK-MB (CK-2) Rel Index 1.1 (0-4) 06/24/20 18:26 Troponin T < 0.010 ng/mL (0.00-0.029) 06/24/20 18:26 Total Protein 7.7 g/dL (6.3-8.2) 06/25/20 07:26 Albumin 4.1 g/dL (3.9-5) 06/25/20 07:26 Albumin/Globulin Ratio 1.1 % 06/25/20 07:26 Triglycerides 45 mg/dL (2-149) 06/25/20 07:26 Cholesterol 168 mg/dL (50-199) 06/25/20 07:26 LDL Cholesterol Direct 89 mg/dL (50-130) 06/25/20 07:26 HDL Cholesterol 80 mg/dL (40-59) H 06/25/20 07: Cholesterol/HDL Ratio 2.10 % 06/25/20 07:26 TSH 1.110 mlU/mL (0.270-4.200) 06/24/20 18:26 Urine Color Yellow (Yellow) 06/24/20 19:02 Urine Turbidity Turbid (Clear) 06/24/20 19:02 Urine pH 6.0 (5.0-7.0) 06/24/20 19:02 Ur Specific [place] 1.016 (1.003-1.030) 06/24/20 19: Urine Protein 100 mg/dl mg/dL (Negative) 06/24/20 19:02 Urine Glucose (UA) Neg mg/dL (Negative) 06/24/20 19: Urine Ketones Neg mg/dL (Negative) 06/24/20 19:02 Urine Blood Sm (Negative) 06/24/20 19:02 Urine Nitrite Neg (Negative) 06/24/20 19:02 Urine Bilirubin Neg (Negative) 06/24/20 19:02 Urine Urobilinogen 2.0 mg/dL (<2.0) 06/24/20 19:02 Ur Leukocyte Esterase Lg (Negative) 06/24/20 19:02 Urine WBC (Auto) > 182.0 /HPF (0.0-6.0) H 06/24/20 19:02 Urine RBC (Auto) 131.0 /HPF (0.0-6.0) 06/24/20 19:02 U Epithel Cells (Auto) 69.0 /HPF (0-13.0) H 06/24/20 19:02 Urine Bacteria (Auto) 2+ /HPF (Negative) 06/24/20 19:02 Urine WBC Clumps 3+ /HPF 06/24/20 19:02 Urine Mucus Few /HPF 06/24/20 19:02 Salicylates < 0.3 mg/dL (2.8-20.0) L 06/24/20 18:26 Acetaminophen 5.0 ug/mL (10.0-30.0) L 06/24/20 18: Plasma/Serum Alcohol < 0.01 % (0-0.07) 06/24/20 18:26 [place]/IV: Voiding Method Incontinent IV Catheter Type [Left Wrist] Peripheral IV Active Medications - Current Medications Current Medications: Generic Name Dose Route Start Last Admin Trade Name Freq PRN Reason Stop Dose Admin Acetaminophen 650 mg 06/24/20 21:26 Tylenol PO Q4H PRN Pain MILD(1-3)/Fever >100.5/LOYA Atenolol 25 mg 06/24/20 22:00 06/25/20 09:34 Tenormin PO 25 mg DAILY ARIA Administration Atorvastatin Calcium 80 mg 06/24/20 22:00 06/24/20 22:03 Lipitor PO 80 mg QHS ARIA Administration Baclofen 20 mg 06/24/20 22:00 06/25/20 09:34 Lioresal PO 20 mg BID ARIA Administration Clonazepam 1 mg 06/25/20 08:00 06/25/20 13:18 Klonopin PO 1 mg TID ARIA Administration Docusate Sodium 100 mg 06/24/20 22:00 06/25/20 09:35 Colace PO 100 mg BID ARIA Administration Heparin Sodium (Porcine) 5,000 unit 06/25/20 22:00 Heparin SUB-Q Q12HR ARIA Hydromorphone HCl 0.5 mg 06/24/20 21:26 Dilaudid IV Q3H PRN Pain , Severe (7-10) Sodium Chloride 1,000 mls @ 75 mls/hr 06/24/20 21:30 06/25/20 13:19 Nacl 0.9% 1000 Ml IV 75 mls/hr DIRECT ARIA Administration Ceftriaxone Sodium 2 gm in 100 mls @ 200 mls/hr 06/25/20 10:00 06/25/20 09:35 Rocephin/Ns 2 Gm/100 Ml IV 200 mls/hr Q24HR ARIA Administration Protocol Levetiracetam 1,000 mg 06/25/20 10:00 06/25/20 09:35 Keppra PO 1,000 mg BID ARIA Administration Ondansetron HCl 4 mg 06/24/20 21:26 Zofran IV Q8H PRN Nausea And Vomiting Oxycodone/Acetaminophen 1 tab 06/24/20 21:26 Percocet 5/325 PO Q6H PRN Pain, Moderate (4-6) Sodium Chloride 10 ml 06/24/20 22:00 06/25/20 09:35 Sodium Chloride Flush Syringe 10 Ml IV 10 ml BID ARIA Administration Sodium Chloride 10 ml 06/24/20 21:26 Sodium Chloride Flush Syringe 10 Ml IV PRN PRN LINE FLUSH
--- NOTE | 2020-06-25 17:29 | Consultation ---
History of Present Illness Chief complaint: right eye pain History of present illness: Tele Neurology consult. got the crna on phone. patient speaks Moldovan only. The patient says that she was having right eye pain and redness and this is the reason she came to ER. She says that she does not have right sided weakens, but she feels like she samra be tilting towards the right side. the h/o obtained from chart: 60-year-old Moldovan-speaking female brought in by EMS for right-sided weakness. Patient had similar episode 1 month ago and a complete work-up which was unremarkable. Patient is Moldovan-speaking and there is a language barrier present. Patient says that her weakness on the right side is more than the usual. Telemetry neurology was consulted and they suggested a complete work-up again. Hence the admission. No seizures. Patient has a history of hypertension hyperlipidemia and seizures. Patient is also chronically bedbound. Patient has both lower extremity weakness. Etiology unknown. Possible multiple sclerosis. No recent seizures. - Past Medical History Hypertension: Yes Additional medical history: MS - Surgical History Additional Surgical History: Unknown - Social History Smoking Status: Never Smoker Substance Use Type: None - Medications Home Medications: Home Medications Medication Instructions Recorded Confirmed Last Taken Type atenoloL [Tenormin] 25 mg PO DAILY #30 tab 12/15/17 05/09/20 Unknown Rx LORazepam [Lorazepam] 1 mg PO QDAY 08/17/19 05/09/20 Unknown History Docusate Sodium [Colace CAP] 100 mg PO BID capsule 08/22/19 05/09/20 Unknown Rx Baclofen 20 mg PO BID 05/09/20 05/09/20 Unknown History AtorvaSTATin [Lipitor] 80 mg PO QHS tablet 05/11/20 Unknown Rx Keppra TAB 1,000 mg PO BID #30 05/11/20 Unknown Rx clonazePAM 1 mg PO TID #90 05/11/20 Unknown Rx Medications and Allergies Allergies Allergy/AdvReac Type Severity Reaction Status Date / Time No Known Allergies Allergy Verified 05/09/20 17:51 Home Medications Medication Instructions Recorded Confirmed Last Taken Type atenoloL [Tenormin] 25 mg PO DAILY #30 tab 12/15/17 06/25/20 Unknown Rx LORazepam [Lorazepam] 1 mg PO QDAY 08/17/19 06/25/20 Unknown History Docusate Sodium [Colace CAP] 100 mg PO BID capsule 08/22/19 06/25/20 06/25/20 10:36 Rx Baclofen 20 mg PO BID 05/09/20 06/25/20 06/25/20 10:36 History AtorvaSTATin [Lipitor] 80 mg PO QHS tablet 05/11/20 06/25/20 Unknown Rx Keppra TAB 1,000 mg PO BID #30 05/11/20 06/25/20 06/25/20 10:36 Rx clonazePAM 1 mg PO TID #90 05/11/20 06/25/20 Unknown Rx Active Meds: Active Medications Acetaminophen (Tylenol) 650 mg PO Q4H PRN PRN Reason: Pain MILD(1-3)/Fever >100.5/LOYA Atenolol (Tenormin) 25 mg PO DAILY [facility] Last Admin: 06/25/20 09:34 Dose: 25 mg Documented by: Atorvastatin Calcium (Lipitor) 80 mg PO QHS [facility] Last Admin: 06/24/20 22:03 Dose: 80 mg Documented by: Baclofen (Lioresal) 20 mg PO BID [facility] Last Admin: 06/25/20 09:34 Dose: 20 mg Documented by: Clonazepam (Klonopin) 1 mg PO TID [facility] Last Admin: 06/25/20 13:18 Dose: 1 mg Documented by: Docusate Sodium (Colace) 100 mg PO BID [facility] Last Admin: 06/25/20 09:35 Dose: 100 mg Documented by: Heparin Sodium (Porcine) (Heparin) 5,000 unit SUB-Q Q12HR [facility] Hydromorphone HCl (Dilaudid) 0.5 mg IV Q3H PRN PRN Reason: Pain , Severe (7-10) Sodium Chloride (Nacl 0.9% 1000 Ml) 1,000 mls @ 75 mls/hr IV DIRECT [facility] Last Admin: 06/25/20 13:19 Dose: 75 mls/hr Documented by: Ceftriaxone Sodium (Rocephin/Ns 2 Gm/100 Ml) 2 gm in 100 mls @ 200 mls/hr IV Q24HR [facility]; Protocol Last Admin: 06/25/20 09:35 Dose: 200 mls/hr Documented by: Levetiracetam (Keppra) 1,000 mg PO BID [facility] Last Admin: 06/25/20 09:35 Dose: 1,000 mg Documented by: Ondansetron HCl (Zofran) 4 mg IV Q8H PRN PRN Reason: Nausea And Vomiting Oxycodone/Acetaminophen (Percocet 5/325) 1 tab PO Q6H PRN PRN Reason: Pain, Moderate (4-6) Sodium Chloride (Sodium Chloride Flush Syringe 10 Ml) 10 ml IV BID [facility] Last Admin: 06/25/20 09:35 Dose: 10 ml Documented by: Sodium Chloride (Sodium Chloride Flush Syringe 10 Ml) 10 ml IV PRN PRN PRN Reason: LINE FLUSH Review of Systems All systems: negative (right eye pain and redness) Physical Examination - Vital Signs Vital Signs: Vital Signs Pulse Ox 92 06/24/20 18:10 - Physical Exam Narrative exam: Neurology examination: alert awake oriented. language- normal. cn- no facial asymmetry. m- no arm drift and moves her legs. Laboratory Results - last 24 hr 06/24/20 06/24/20 06/24/20 18:26 18:26 18:26 WBC RBC Hgb Hct MCV MCH MCHC RDW Plt Count Lymph % (Auto) Linn % (Auto) Eos % (Auto) Baso % (Auto) Lymph # (Auto) Linn # (Auto) Eos # (Auto) Baso # (Auto) Seg Neutrophils % Seg Neutrophils # PT 13.7 INR 1.04 APTT 25.9 Thrombin Time 14.8 L Sodium 139 Potassium 3.7 Chloride 98.6 Carbon Dioxide 26 Anion Gap 18 BUN 10 Creatinine 0.3 L Estimated GFR > 60 BUN/Creatinine Ratio 33 Glucose 118 H Hemoglobin A1c Calcium 10.1 Magnesium Total Bilirubin 0.50 AST 22 ALT 18 Alkaline Phosphatase 116 Total Creatine Kinase 89 CK-MB (CK-2) < 1.0 CK-MB (CK-2) Rel Index 1.1 Troponin T < 0.010 Total Protein 7.6 Albumin 4.4 Albumin/Globulin Ratio 1.4 Triglycerides Cholesterol LDL Cholesterol Direct HDL Cholesterol Cholesterol/HDL Ratio TSH Urine Color Urine Turbidity Urine pH Ur Specific Hope Urine Protein Urine Glucose (UA) Urine Ketones Urine Blood Urine Nitrite Urine Bilirubin Urine Urobilinogen Ur Leukocyte Esterase Urine WBC (Auto) Urine RBC (Auto) U Epithel Cells (Auto) Urine Bacteria (Auto) Urine WBC Clumps Urine Mucus Salicylates Acetaminophen Plasma/Serum Alcohol < 0.01 06/24/20 06/24/20 06/24/20 18:26 18:26 18:26 WBC RBC Hgb Hct MCV MCH MCHC RDW Plt Count Lymph % (Auto) Linn % (Auto) Eos % (Auto) Baso % (Auto) Lymph # (Auto) Linn # (Auto) Eos # (Auto) Baso # (Auto) Seg Neutrophils % Seg Neutrophils # PT INR APTT Thrombin Time Sodium Potassium Chloride Carbon Dioxide Anion Gap BUN Creatinine Estimated GFR BUN/Creatinine Ratio Glucose Hemoglobin A1c Calcium Magnesium 2.60 H Total Bilirubin AST ALT Alkaline Phosphatase Total Creatine Kinase CK-MB (CK-2) CK-MB (CK-2) Rel Index Troponin T Total Protein Albumin Albumin/Globulin Ratio Triglycerides Cholesterol LDL Cholesterol Direct HDL Cholesterol Cholesterol/HDL Ratio TSH 1.110 Urine Color Urine Turbidity Urine pH Ur Specific Hope Urine Protein Urine Glucose (UA) Urine Ketones Urine Blood Urine Nitrite Urine Bilirubin Urine Urobilinogen Ur Leukocyte Esterase Urine WBC (Auto) Urine RBC (Auto) U Epithel Cells (Auto) Urine Bacteria (Auto) Urine WBC Clumps Urine Mucus Salicylates < 0.3 L Acetaminophen Plasma/Serum Alcohol 06/24/20 06/24/20 06/25/20 18:26 19:02 07:26 WBC RBC Hgb Hct MCV MCH MCHC RDW Plt Count Lymph % (Auto) Linn % (Auto) Eos % (Auto) Baso % (Auto) Lymph # (Auto) Linn # (Auto) Eos # (Auto) Baso # (Auto) Seg Neutrophils % Seg Neutrophils # PT INR APTT Thrombin Time Sodium Potassium Chloride Carbon Dioxide Anion Gap BUN Creatinine Estimated GFR BUN/Creatinine Ratio Glucose Hemoglobin A1c 5.8 Calcium Magnesium Total Bilirubin AST ALT Alkaline Phosphatase Total Creatine Kinase CK-MB (CK-2) CK-MB (CK-2) Rel Index Troponin T Total Protein Albumin Albumin/Globulin Ratio Triglycerides Cholesterol LDL Cholesterol Direct HDL Cholesterol Cholesterol/HDL Ratio TSH Urine Color Yellow Urine Turbidity Turbid Urine pH 6.0 Ur Specific Hope 1.016 Urine Protein 100 mg/dl Urine Glucose (UA) Neg Urine Ketones Neg Urine Blood Sm Urine Nitrite Neg Urine Bilirubin Neg Urine Urobilinogen 2.0 Ur Leukocyte Esterase Lg Urine WBC (Auto) > 182.0 H Urine RBC (Auto) 131.0 U Epithel Cells (Auto) 69.0 H Urine Bacteria (Auto) 2+ Urine WBC Clumps 3+ Urine Mucus Few Salicylates Acetaminophen 5.0 L Plasma/Serum Alcohol 06/25/20 06/25/20 07:26 07:26 WBC 9.6 RBC 4.25 Hgb 12.3 Hct 35.6 MCV 84 MCH 29 MCHC 35 H RDW 14.1 Plt Count 174 Lymph % (Auto) 24.2 Linn % (Auto) 4.3 Eos % (Auto) 0.3 Baso % (Auto) 0.7 Lymph # (Auto) 2.3 Linn # (Auto) 0.4 Eos # (Auto) 0.0 Baso # (Auto) 0.1 Seg Neutrophils % 70.5 H Seg Neutrophils # 6.8 PT INR APTT Thrombin Time Sodium 143 Potassium 4.1 Chloride 102.6 Carbon Dioxide 34 H D Anion Gap 11 BUN 9 Creatinine 0.2 L Estimated GFR > 60 BUN/Creatinine Ratio 45 Glucose 100 Hemoglobin A1c Calcium 10.3 H Magnesium Total Bilirubin 0.60 AST 22 ALT 16 Alkaline Phosphatase 108 Total Creatine Kinase CK-MB (CK-2) CK-MB (CK-2) Rel Index Troponin T Total Protein 7.7 Albumin 4.1 Albumin/Globulin Ratio 1.1 Triglycerides 45 Cholesterol 168 LDL Cholesterol Direct 89 HDL Cholesterol 80 H Cholesterol/HDL Ratio 2.10 TSH Urine Color Urine Turbidity Urine pH Ur Specific Hope Urine Protein Urine Glucose (UA) Urine Ketones Urine Blood Urine Nitrite Urine Bilirubin Urine Urobilinogen Ur Leukocyte Esterase Urine WBC (Auto) Urine RBC (Auto) U Epithel Cells (Auto) Urine Bacteria (Auto) Urine WBC Clumps Urine Mucus Salicylates Acetaminophen Plasma/Serum Alcohol Results - Laboratory Findings CBC and BMP: 06/25/20 07:26 06/25/20 07:26 Abnormal Lab Findings: Abnormal Labs 06/24/20 06/24/20 06/24/20 18:26 18:26 18:26 MCHC Seg Neutrophils % Thrombin Time 14.8 L Carbon Dioxide Creatinine 0.3 L Glucose 118 H Calcium Magnesium 2.60 H HDL Cholesterol Urine WBC (Auto) U Epithel Cells (Auto) Salicylates Acetaminophen 06/24/20 06/24/20 06/24/20 18:26 18:26 19:02 MCHC Seg Neutrophils % Thrombin Time Carbon Dioxide Creatinine Glucose Calcium Magnesium HDL Cholesterol Urine WBC (Auto) > 182.0 H U Epithel Cells (Auto) 69.0 H Salicylates < 0.3 L Acetaminophen 5.0 L 06/25/20 06/25/20 07:26 07:26 MCHC 35 H Seg Neutrophils % 70.5 H Thrombin Time Carbon Dioxide 34 H D Creatinine 0.2 L Glucose Calcium 10.3 H Magnesium HDL Cholesterol 80 H Urine WBC (Auto) U Epithel Cells (Auto) Salicylates Acetaminophen Assessment and Plan she had been admitted in recent past and has a work up done.the patient does not c/o right sided weakness , but says she feels tilting to right side. she is c/o pain right eye and redness. -- the mri brain w out- reported- possible left frontal subarchnoid mass, but would need with gado mri. will order one. --she has already been on keppra 1 gm bid, continue it . she has h/o seizures by h/o. -- it has been reported she is bed bound. cannot explain it. rule out cervical myelopathy or stenosis. rule out demyelination. will order mri cervcial spine w and w out gado.
[2020-06-26] MEDS: SODIUM CHLORIDE 0.9% 1000 ML 1,000 ML IV SCH (01:10)
[2020-06-26] MEDS: clonazePAM 0.5 MG TAB PO SCH ×2 (08:00→13:31)
[2020-06-26] MEDS: BACLOFEN 10 MG TAB PO SCH (09:23)
[2020-06-26] MEDS: cefTRIAXone/NS 2 GM/100 ML 2 GM/100 ML BAG IV SCH (09:23)
[2020-06-26] MEDS: levETIRAcetam 500 MG TAB PO SCH (09:24)
[2020-06-26] MEDS: atenoloL 25 MG TAB PO SCH (09:24)
[2020-06-26] MEDS: HEPARIN 5,000 UNIT/1 ML VIAL SUB-Q SCH (09:25)
[2020-06-26] MEDS: DOCUSATE SODIUM 100 MG CAP PO SCH (09:26)
--- NOTE | 2020-06-26 12:41 | Magnetic Resonance Report ---
MRI BRAIN 06/26/2020 INDICATION / CLINICAL INFORMATION: Abnormal MRI. Follow-up.. TECHNIQUE: Multiplanar, multisequence MR images of the brain were obtained. COMPARISON: 06/25/2020 FINDINGS: BRAIN / INTRACRANIAL CONTENTS: Postcontrast images and additional detailed views were obtained as a s upplement to the exam performed 06/17/2020. There is no definite evidence of abnormal mass in the subarachnoid space in the left frontal region. There is no abnormal enhancement. The detailed coronal FLAIR and T2-weighted images demonstrate a sim ilar although not identical pattern, suggesting that this is possibly flow related artifact in a fair ly prominent subarachnoid space overlying the left frontal convexity. Patient has an air-fluid level in the right maxillary sinus, suggestive of acute sinusitis. IMPRESSION: No abnormal contrast enhancement. Abnormal mass cannot be confirmed, and is thought likely to repres ent flow-related CSF artifact. Signer Name: Fransico Magaña MD Signed: 06/26/2020 12:36 PM Workstation Name: [id number]
[2020-06-26 13:31] VITALS: BP 157/88
[2020-06-26] MEDS ORDERED: hydrALAZINE 25 MG TAB PO SCH (14:00)
[2020-06-26] MEDS ORDERED: amLODIPine 10 MG TAB PO SCH (14:00)
--- NOTE | 2020-06-26 16:55 | Discharge Summary ---
Providers - Providers Date of Admission: 06/24/20 21:26 Date of discharge: 06/26/20 Attending physician: KYLE SIEGEL 06/24/20 21:26 Consult to Physician [CONS] Routine Comment: Consulting Provider: LANDY RITCHIE Physician Instructions: Reason For Exam: CVA 06/24/20 21:34 Occupational Therapy Evaluate and Treat [CONS] Routine Comment: Reason For Exam: Neuro deficits Physical Therapy Evaluation and Treat [CONS] Routine Comment: Reason For Exam: Neuro deficits 06/25/20 16:33 Consult to Dietitian/Nutrition [CONS] Routine Physician Instructions: Reason For Exam: Reason for Consult: Malnutrition Primary care physician: FERCHO ALFORD Hospitalization Condition: Fair Hospital course: 60-year-old Guinean-speaking female with a history of seizures, hypertension, hyperlipidemia who presented with the emergency department on 06/24 with right- sided weakness. Patient had a similar episode 1 month ago and a complete work- up was unremarkable. Of note patient is chronically bedbound and has weakness to bilateral lower extremities. She uses a wheelchair to get around at home. She has significant bilateral foot drop which she attributes to a status epilepticus episode in [place]. Neurology has been consulted for possible seizure versus CVA. PT/OT/ST has been called have been consulted as well as nutrition for nutritional supplements. Discharge diagnosis: (1) Acute CVA (cerebrovascular accident) - ruled out 06/24 CTh showed No focal mass, hemorrhage, hydrocephalus, or acute, large territorial infarct. 06/25 MRI brain shows 1. 6 mm finding in the subarachnoid space adjacent to the left frontal operculum., follow-up with MRI of brain with contrast is advised. In addition please obtain this coronal T2 and FLAIR sequences for further evaluation of this finding. 2. Dilatation of the subarachnoid space over the convexity of both cerebral hemispheres consistent with parenchymal volume loss. 3. No indication of recent or remote infarction. 06/26 repeat MRI with contrast showed no mass Neurology consulted cont Statin therapy (2) Malnutrition Nutrition consulted (3) Urinary tract infection Current Visit: Yes Status: Acute Plan to address problem: 06/24 UA showed large leukocyte esterase, negative nitrates tretaed with abx (4) physical debility, Chronic -Due to multiple sclerosis Patient is bedbound for 3 years and uses a wheelchair at home Patient exhibits excessive foot drop in bilateral lower extremities PT consulted (5) Hyperlipidemia: Continue statin therapy 06/25 lipid profile: Triglyceride 45, cholesterol 168, LDL 89, HDL 80 (6) Hypertension Continue home antihypertensive regimen, adjusted BP meds for better BP control (7) Seizure disorder: Chronic Continue antiepileptics with Keppra Seizure precautions Aspiration precautions (8) DVT prophylaxis Heparin subcu SCDs to bilateral lower extremities Hospitalist Physical General appearance: Present: no acute distress, well-nourished - EENT Eyes: Present: PERRL, conjunctival injection ENT: hearing intact, clear oral mucosa - Neck Neck: Present: supple, normal ROM - Respiratory Respiratory effort: normal Respiratory: bilateral: CTA - Cardiovascular Rhythm: regular Heart Sounds: Present: S1 & S2. Absent: systolic murmur, diastolic murmur - Extremities Extremities: no ischemia, pulses intact, pulses symmetrical, No edema, normal temperature, normal color Peripheral Pulses: within normal limits - Abdominal General gastrointestinal: soft, non-tender, non-distended, normal bowel sounds - Integumentary Integumentary: Present: clear, warm, dry - Psychiatric Psychiatric: cooperative - Neurologic Neurologic: CNII-XII intact, focal deficits (Decreased right-sided sensation, right facial droop), no moves all extremities (Normal bilateral lower extremities) - Allied Health Allied health notes reviewed: nursing Disposition: [id number] HOME UNDER HOME [facility] Time spent for discharge: 34 minutes Exam - Constitutional Vitals: Temp Pulse Resp BP Pulse Ox 98.0 F 70 17 157/88 98 06/26/20 12:21 06/26/20 13:31 06/26/20 12:21 06/26/20 13:31 06/26/20 12:21 Plan Follow up with: FERCHO ALFORD MD [Primary Care Provider] - 7 Days Prescriptions: amLODIPine 10 mg PO QDAY #60 tablet hydrALAZINE [Apresoline TAB] 50 mg PO Q8HR #90 tablet levoFLOXacin [Levaquin] 750 mg PO QDAY #4 tablet
== END 2020-06-26 16:40 | disposition home health service (06) ==
LOC: ED 17:58 → 4A 21:26
PROVIDERS: ADMIT Internal Medicine; ATTEND Internal Medicine
DX: I63.9 Cerebral infarction, unspecified (principal); I10 Essential (primary) hypertension; N39.0 Urinary tract infection, site not specified; E78.5 Hyperlipidemia, unspecified; R56.9 Unspecified convulsions; E46 Unspecified protein-calorie malnutrition; R29.704 NIHSS score 4; R62.7 Adult failure to thrive; Z68.1 Body mass index [BMI] 19.9 or less, adult; Z79.899 Other long term (current) drug therapy
CPT/HCPCS: 36415; 70450; 70551; 70553; 71045; 80053; 80061; 81001; 82550; 82553; 83036; 83735; 84443; 84484; 85025; 85610; 85670; 85730; 93005; 96361; 96365; 96366; 96367; 96372; 97162; 97165; 99291; A9270; A9577; G0378; J0696; J1644; J1953; J7030; J7120; 80320; G0480

== ENCOUNTER 2021-07-28 09:26 | Inpatient (IN) | payer MEDICARE ==
[2021-07-28] MEDS ORDERED: SODIUM CHLORIDE 0.9% 1000 ML 1,000 ML IV ONE (09:32)
--- NOTE | 2021-07-28 09:36 | Emergency Department Report ---
ED General Adult HPI - General Stated complaint: WEAKNESS,LETHARGIC Time Seen by Provider: 07/28/21 09:31 Source: EMS Limitations: Altered Mental Status, Physical Limitation - History of Present Illness Initial comments: Patient is 61 years old female with history of multiple sclerosis and hypertension. According to the EMS that brought the patient from home that patient is a hospice patient. Family informed EMS that patient has been having decreased mentation and unresponsiveness for the last 3 days. They also noticed a foul-smelling urine. Family also reported that patient has been treated for UTI several times in the last few month. Upon arrival to the ER patient is obtunded however she is responding to painful stimuli. Patient vital signs stable with oxygen saturation of 98% on room air. - Related Data Home Medications Medication Instructions Recorded Confirmed Last Taken LORazepam [Lorazepam] 1 mg PO QDAY 08/17/19 06/25/20 Unknown Baclofen 20 mg PO BID 05/09/20 06/25/20 06/25/20 10:36 Previous Rx's Medication Instructions Recorded Last Taken Type atenoloL [Tenormin] 25 mg PO DAILY #30 tab 12/15/17 Unknown Rx Docusate Sodium [Colace CAP] 100 mg PO BID capsule 08/22/19 06/25/20 10:36 Rx AtorvaSTATin [Lipitor] 80 mg PO QHS tablet 05/11/20 Unknown Rx Keppra TAB 1,000 mg PO BID #30 05/11/20 06/25/20 10:36 Rx clonazePAM 1 mg PO TID #90 05/11/20 Unknown Rx amLODIPine 10 mg PO QDAY #60 tablet 06/26/20 Unknown Rx hydrALAZINE [Apresoline TAB] 50 mg PO Q8HR #90 tablet 06/26/20 Unknown Rx levoFLOXacin [Levaquin] 750 mg PO QDAY #4 tablet 06/26/20 Unknown Rx Allergies Allergy/AdvReac Type Severity Reaction Status Date / Time No Known Allergies Allergy Verified 05/09/20 17:51 ED Review of Systems ROS: Stated complaint: WEAKNESS,LETHARGIC Other details as noted in HPI Comment: Unobtainable due to pts medical conditions ED Past Medical Hx - Past Medical History Hx Hypertension: Yes Additional medical history: MS - Surgical History Additional Surgical History: Unknown - Social History Smoking Status: Never Smoker Substance Use Type: None - Medications Home Medications: Home Medications Medication Instructions Recorded Confirmed Last Taken Type atenoloL [Tenormin] 25 mg PO DAILY #30 tab 12/15/17 06/25/20 Unknown Rx LORazepam [Lorazepam] 1 mg PO QDAY 08/17/19 06/25/20 Unknown History Docusate Sodium [Colace CAP] 100 mg PO BID capsule 08/22/19 06/25/20 06/25/20 10:36 Rx Baclofen 20 mg PO BID 05/09/20 06/25/20 06/25/20 10:36 History AtorvaSTATin [Lipitor] 80 mg PO QHS tablet 05/11/20 06/25/20 Unknown Rx Keppra TAB 1,000 mg PO BID #30 05/11/20 06/25/20 06/25/20 10:36 Rx clonazePAM 1 mg PO TID #90 05/11/20 06/25/20 Unknown Rx amLODIPine 10 mg PO QDAY #60 tablet 06/26/20 Unknown Rx hydrALAZINE [Apresoline TAB] 50 mg PO Q8HR #90 tablet 06/26/20 Unknown Rx levoFLOXacin [Levaquin] 750 mg PO QDAY #4 tablet 06/26/20 Unknown Rx ED Physical Exam - General General appearance: obtunded - Head Head exam: Present: atraumatic, normocephalic, normal inspection - ENT ENT exam: Present: mucous membranes dry - Neck Neck exam: Present: normal inspection, full ROM. Absent: tenderness, meningismus - Respiratory Respiratory exam: Present: normal lung sounds bilaterally - Cardiovascular Cardiovascular Exam: Present: tachycardia - GI/Abdominal GI/Abdominal exam: Present: soft, normal bowel sounds. Absent: distended, tenderness, guarding, rigid, mass, pulsatile mass - Extremities Exam Extremities exam: Present: normal capillary refill - Neurological Exam Neurological exam: Present: altered - Psychiatric Psychiatric exam: Present: flat affect - Skin Skin exam: Present: warm, dry, normal color ED Course Vital Signs 07/28/21 07/28/21 07/28/21 09:39 09:44 10:00 Temperature 96.9 F L Pulse Rate 125 H 127 H Respiratory 22 23 Rate Blood Pressure 154/83 154/86 Blood Pressure 154/83 [Left] O2 Sat by Pulse 99 99 99 Oximetry 07/28/21 07/28/21 07/28/21 10:07 10:30 11:00 Temperature Pulse Rate 127 H 124 H Respiratory 22 24 Rate Blood Pressure 132/80 155/90 Blood Pressure [Left] O2 Sat by Pulse 99 Oximetry 07/28/21 11:40 Temperature Pulse Rate 121 H Respiratory 22 Rate Blood Pressure Blood Pressure 159/86 [Left] O2 Sat by Pulse 98 Oximetry ED Medical Decision Making - Lab Data Result diagrams: 07/28/21 10:28 07/28/21 10:28 - EKG Data -: EKG Interpreted by Hi EKG shows normal: sinus rhythm Rate: tachycardia - EKG Data Interpretation: no acute changes - Radiology Data Radiology results: report reviewed - Medical Decision Making Patient is 61 years old female with history of multiple sclerosis and hypertension. According to the EMS that brought the patient from home that patient is a hospice patient. Family informed EMS that patient has been having decreased mentation and unresponsiveness for the last 3 days. They also noticed a foul-smelling urine. Family also reported that patient has been treated for UTI several times in the last few month. Upon arrival to the ER patient is obtunded however she is responding to painful stimuli. Patient vital signs stable with oxygen saturation of 98% on room air. Patient remained obtunded in the ER however her oxygen saturation remained stable on room air. Patient looks really dehydrated. Patient started on normal saline. Labs reviewed and showed significant leukocytosis of 23,000. Urine is strongly positive with white blood cells more than 180. Patient started on Rocephin. I discussed the patient with Dr. Chavarria, he agreed to admit the patient to medical service for further management. Critical Care Time: Yes Critical care time in (mins) excluding proc time.: 35 Critical care attestation.: If time is entered above; I have spent that time in minutes in the direct care of this critically ill patient, excluding procedure time. ED Disposition Clinical Impression: Altered mental status, Sepsis, UTI (urinary tract infection), Acute hyperna tremia Disposition: ADMITTED INPATIENT Is pt being admited?: Yes Condition: Stable
--- NOTE | 2021-07-28 10:32 | XRay Report ---
CHEST 1 VIEW 07/28/2021 9:19 AM INDICATION / CLINICAL INFORMATION: AMS. COMPARISON: 06/24/2020 FINDINGS: SUPPORT DEVICES: None. HEART / MEDIASTINUM: No significant abnormality. LUNGS / PLEURA: No significant pulmonary or pleural abnormality. No pneumothorax.. There are small ca lcified granulomata on the left. ADDITIONAL FINDINGS: No significant additional findings. IMPRESSION: 1. No acute findings. Signer Name: Curry Hutson MD Signed: 07/28/2021 10:28 AM Workstation Name: [id number]
[2021-07-28 11:04] LABS: Bacteria,Urine 1+ /HPF (Negative); Bilirubin,Urine NEG (Negative); Blood,Urine MOD (Negative); Color,Urine Yellow (Yellow); Mucus,Urine FEW /HPF; Urobilinogen,Urine < 2.0 mg/dL (<2.0)
[2021-07-28 11:05] LABS: WBC,Urine > 182.0 /HPF (0.0-6.0)
[2021-07-28] MEDS ORDERED: cefTRIAXone/NS 1 GM/50 ML 1 GM/50 ML BAG IV ONE (11:31)
[2021-07-28 13:29] LABS: Hematocrit 48.9 % (30.3-42.9); Hemoglobin 15.4 gm/dl (10.1-14.3); Mean Corpuscular HGB Conc 32 % (30-34); Mean Corpuscular Volume 90 fl (79-97); Platelet Count 322 K/mm3 (140-440); Red Blood Count 5.43 M/mm3 (3.65-5.03); Red Cell Distribution Width 15.4 % (13.2-15.2)
[2021-07-28 13:41] LABS: Alanine Aminotransferase 8 units/L (7-56); Albumin 3.8 g/dL (3.9-5); Blood Urea Nitrogen 12 mg/dL (7-17); Hemolysis Index 9
[2021-07-28] MEDS ORDERED: INSULIN REGULAR, HUMAN 100 UNITS/1 ML IV ONE (13:46)
[2021-07-28 13:49] LABS: BUN/Creatinine Ratio 17; Bilirubin,Direct < 0.2 mg/dL (0-0.2)
[2021-07-28 14:25] LABS: Total Cells Counted 100
[2021-07-28 14:27] LABS: Platelet Estimate Consistent w Auto; RBC Morphology Normal
--- NOTE | 2021-07-28 18:04 | History and Physical Report ---
History of Present Illness Date of examination: 07/28/21 Date of admission: 07/28/2021 Chief complaint: Altered sensorium for 3 days History of present illness: Patient is 61 years old female with history of multiple sclerosis and hypertension. According to the EMS that brought the patient from home that patient is a hospice patient. Family informed EMS that patient has been having decreased mentation and unresponsiveness for the last 3 days. They also noticed a foul-smelling urine. Family also reported that patient has been treated for UTI several times in the last few month. Upon arrival to the ER patient is obtunded however she is responding to painful stimuli. Patient vital signs stable with oxygen saturation of 98% on room air. - Past Medical History --Hypertension: Yes --Additional medical history: MS - Surgical History --Additional Surgical History: Unknown - Social History --Smoking Status: Never Smoker --Substance Use Type: None Review of Systems ROS: Stated complaint: WEAKNESS,LETHARGIC Other details as noted in HPI Comment: Unobtainable due to pts medical conditions Medications and Allergies Allergies Allergy/AdvReac Type Severity Reaction Status Date / Time No Known Allergies Allergy Verified 05/09/20 17:51 Home Medications Medication Instructions Recorded Confirmed Last Taken Type atenoloL [Tenormin] 25 mg PO DAILY #30 tab 12/15/17 06/25/20 Unknown Rx LORazepam [Lorazepam] 1 mg PO QDAY 08/17/19 06/25/20 Unknown History Docusate Sodium [Colace CAP] 100 mg PO BID capsule 08/22/19 06/25/20 06/25/20 10:36 Rx Baclofen 20 mg PO BID 05/09/20 06/25/20 06/25/20 10:36 History AtorvaSTATin [Lipitor] 80 mg PO QHS tablet 05/11/20 06/25/20 Unknown Rx Keppra TAB 1,000 mg PO BID #30 05/11/20 06/25/20 06/25/20 10:36 Rx clonazePAM 1 mg PO TID #90 05/11/20 06/25/20 Unknown Rx amLODIPine 10 mg PO QDAY #60 tablet 06/26/20 Unknown Rx hydrALAZINE [Apresoline TAB] 50 mg PO Q8HR #90 tablet 06/26/20 Unknown Rx levoFLOXacin [Levaquin] 750 mg PO QDAY #4 tablet 06/26/20 Unknown Rx Exam - Constitutional Vitals: Temp Pulse Resp BP Pulse Ox 96 F L 115 H 17 129/72 99 07/28/21 17:00 07/28/21 17:00 07/28/21 17:00 07/28/21 17:00 07/28/21 17:00 General appearance: Present: no acute distress, well-nourished - EENT Eyes: Present: PERRL ENT: hearing intact, clear oral mucosa - Neck Neck: Present: supple, normal ROM - Respiratory Respiratory effort: normal Respiratory: bilateral: CTA - Cardiovascular Heart rate: 88 Rhythm: regular Heart Sounds: Present: S1 & S2. Absent: rub, click - Extremities Extremities: pulses symmetrical, No edema Peripheral Pulses: within normal limits - Abdominal General gastrointestinal: Present: soft, non-tender, non-distended, normal bowel sounds Female genitourinary: Present: normal - Integumentary Integumentary: Present: clear, warm, dry - Musculoskeletal Musculoskeletal: generalized weakness, other (Muscle wasting in both lower and upper extremities) - Psychiatric Psychiatric: other (Lethargic) - Neurologic Neurologic: moves all extremities, other (Lethargic) - Allied Health Allied health notes reviewed: nursing, case management Results - Labs CBC & Chem 7: 07/28/21 10:28 07/29/21 06:50 Labs: Laboratory Last Values WBC 23.8 K/mm3 (4.5-11.0) H 07/28/21 10:28 RBC 5.43 M/mm3 (3.65-5.03) H 07/28/21 10:28 Hgb 15.4 gm/dl (10.1-14.3) H 07/28/21 10:28 Hct 48.9 % (30.3-42.9) H 07/28/21 10:28 MCV 90 fl (79-97) 07/28/21 10:28 MCH 28 pg (28-32) 07/28/21 10:28 MCHC 32 % (30-34) 07/28/21 10:28 RDW 15.4 % (13.2-15.2) H 07/28/21 10:28 Plt Count 322 K/mm3 (140-440) 07/28/21 10:28 Add Manual Diff Complete 07/28/21 10:28 Total Counted 100 07/28/21 10:28 Seg Neuts % (Manual) 83.0 % (40.0-70.0) H 07/28/21 10:28 Lymphocytes % (Manual) 10.0 % (13.4-35.0) L 07/28/21 10:28 Reactive Lymphs % (Man) 3.0 % 07/28/21 10:28 Monocytes % (Manual) 4.0 % (0.0-7.3) 07/28/21 10:28 Nucleated RBC % Not Reportable 07/28/21 10:28 Seg Neutrophils # Man 19.8 K/mm3 (1.8-7.7) H 07/28/21 10:28 Band Neutrophils # 0.0 K/mm3 07/28/21 10:28 Lymphocytes # (Manual) 2.4 K/mm3 (1.2-5.4) 07/28/21 10:28 Abs React Lymphs (Man) 0.7 K/mm3 07/28/21 10:28 Monocytes # (Manual) 1.0 K/mm3 (0.0-0.8) H 07/28/21 10:28 Eosinophils # (Manual) 0.0 K/mm3 (0.0-0.4) 07/28/21 10:28 Basophils # (Manual) 0.0 K/mm3 (0.0-0.1) 07/28/21 10:28 Metamyelocytes # 0.0 K/mm3 07/28/21 10:28 Myelocytes # 0.0 K/mm3 07/28/21 10:28 Promyelocytes # 0.0 K/mm3 07/28/21 10:28 Blast Cells # 0.0 K/mm3 07/28/21 10:28 WBC Morphology Not Reportable 07/28/21 10:28 WBC Morphology TNR 07/28/21 10:28 Hypersegmented Neuts Not Reportable 07/28/21 10:28 Hyposegmented Neuts Not Reportable 07/28/21 10:28 Hypogranular Neuts Not Reportable 07/28/21 10:28 Smudge Cells Not Reportable 07/28/21 10:28 Toxic Granulation Not Reportable 07/28/21 10:28 Toxic Vacuolation Not Reportable 07/28/21 10:28 Dohle Bodies Not Reportable 07/28/21 10:28 Pelger-Huet Anomaly Not Reportable 07/28/21 10:28 Leroy Rods Not Reportable 07/28/21 10:28 Platelet Estimate Consistent w auto 07/28/21 10:28 Clumped Platelets Not Reportable 07/28/21 10:28 Plt Clumps, EDTA Not Reportable 07/28/21 10:28 Large Platelets Not Reportable 07/28/21 10:28 Giant Platelets Not Reportable 07/28/21 10:28 Platelet Satelliting Not Reportable 07/28/21 10:28 Plt Morphology Comment Not Reportable 07/28/21 10:28 RBC Morphology Normal 07/28/21 10:28 Dimorphic RBCs Not Reportable 07/28/21 10:28 Polychromasia Not Reportable 07/28/21 10:28 Hypochromasia Not Reportable 07/28/21 10:28 Poikilocytosis Not Reportable 07/28/21 10:28 Anisocytosis Not Reportable 07/28/21 10:28 Microcytosis Not Reportable 07/28/21 10:28 Macrocytosis Not Reportable 07/28/21 10:28 Spherocytes Not Reportable 07/28/21 10:28 Pappenheimer Bodies Not Reportable 07/28/21 10:28 Sickle Cells Not Reportable 07/28/21 10:28 Target Cells Not Reportable 07/28/21 10:28 Tear Drop Cells Not Reportable 07/28/21 10:28 Ovalocytes Not Reportable 07/28/21 10:28 Helmet Cells Not Reportable 07/28/21 10:28 [place] Bodies Not Reportable 07/28/21 10:28 [place] Rings Not Reportable 07/28/21 10:28 Megan Cells Not Reportable 07/28/21 10:28 Bite Cells Not Reportable 07/28/21 10:28 Crenated Cell Not Reportable 07/28/21 10:28 Elliptocytes Not Reportable 07/28/21 10:28 Acanthocytes (Spur) Not Reportable 07/28/21 10:28 Rouleaux Not Reportable 07/28/21 10:28 Hemoglobin C Crystals Not Reportable 07/28/21 10:28 Schistocytes Not Reportable 07/28/21 10:28 Malaria parasites Not Reportable 07/28/21 10:28 [place] Bodies Not Reportable 07/28/21 10:28 Hem Pathologist Commnt No 07/28/21 10:28 Sodium 147 mmol/L (137-145) H 07/28/21 10:28 Potassium 3.2 mmol/L (3.6-5.0) L 07/28/21 10:28 Chloride 109.2 mmol/L (98-107) H 07/28/21 10:28 Carbon Dioxide 3 mmol/L (22-30) L* 07/28/21 10:28 Anion Gap 38 mmol/L 07/28/21 10:28 BUN 12 mg/dL (7-17) 07/28/21 10:28 Creatinine 0.7 mg/dL (0.6-1.2) 07/28/21 10:28 Estimated GFR > 60 ml/min 07/28/21 10:28 BUN/Creatinine Ratio 17 % 07/28/21 10:28 Glucose 419 mg/dL (65-100) H 07/28/21 10:28 Lactic Acid 2.90 mmol/L (0.7-2.0) H* 07/28/21 10:28 Calcium 10.0 mg/dL (8.4-10.2) 07/28/21 10:28 Total Bilirubin 0.20 mg/dL (0.1-1.2) 07/28/21 10:28 Direct Bilirubin < 0.2 mg/dL (0-0.2) 07/28/21 10:28 Indirect Bilirubin 0.0 mg/dL 07/28/21 10:28 AST 11 units/L (5-40) 07/28/21 10:28 ALT 8 units/L (7-56) 07/28/21 10:28 Alkaline Phosphatase 180 units/L (35-129) H 07/28/21 10:28 Ammonia 51.0 umol/L (25-60) 07/28/21 10:28 Total Creatine Kinase 51 units/L (30-135) 07/28/21 10:28 Total Protein 8.5 g/dL (6.3-8.2) H 07/28/21 10:28 Albumin 3.8 g/dL (3.9-5) L 07/28/21 10:28 Albumin/Globulin Ratio 0.8 % 07/28/21 10:28 Urine Color Yellow (Yellow) 07/28/21 10:07 Urine Turbidity Cloudy (Clear) 07/28/21 10:07 Urine pH 5.0 (5.0-7.0) 07/28/21 10:07 Ur Specific [place] 1.014 (1.003-1.030) 07/28/21 10:07 Urine Protein 100 mg/dl mg/dL (Negative) 07/28/21 10:07 Urine Glucose (UA) >=500 mg/dL (Negative) 07/28/21 10:07 Urine Ketones 80 mg/dL (Negative) 07/28/21 10:07 Urine Blood Mod (Negative) 07/28/21 10:07 Urine Nitrite Neg (Negative) 07/28/21 10:07 Urine Bilirubin Neg (Negative) 07/28/21 10:07 Urine Urobilinogen < 2.0 mg/dL (<2.0) 07/28/21 10:07 Ur Leukocyte Esterase Lg (Negative) 07/28/21 10:07 Urine WBC (Auto) > 182.0 /HPF (0.0-6.0) H 07/28/21 10:07 Urine RBC (Auto) 5.0 /HPF (0.0-6.0) 07/28/21 10:07 Urine Bacteria (Auto) 1+ /HPF (Negative) 07/28/21 10:07 Urine Mucus Few /HPF 07/28/21 10:07 Short CBC 07/28/21 Range/Units 10: WBC 23.8 H (4.5-11.0) K/mm3 Hgb 15.4 H (10.1-14.3) gm/dl Hct 48.9 H (30.3-42.9) % Plt Count 322 (140-440) K/mm3 BMP 07/28/21 10:28 Sodium 147 H Potassium 3.2 L Chloride 109.2 H Carbon Dioxide 3 L* BUN 12 Creatinine 0.7 Glucose 419 H Calcium 10.0 Cardiac Enzymes 07/28/21 Range/Units 10: Total Creatine Kinase 51 (30-135) units/L Liver Function 07/28/21 Range/Units 10: Total Bilirubin 0.20 (0.1-1.2) mg/dL Direct Bilirubin < 0.2 (0-0.2) mg/dL AST 11 (5-40) units/L ALT 8 (7-56) units/L Alkaline Phosphatase 180 H (35-129) units/L Albumin 3.8 L (3.9-5) g/dL Urine 07/28/21 Range/Units 10:07 Urine Color Yellow (Yellow) Urine pH 5.0 (5.0-7.0) Ur Specific [place] 1.014 (1.003-1.030) Urine Protein 100 mg/dl (Negative) mg/dL Urine Glucose (UA) >=500 (Negative) mg/dL Short CBC 07/28/21 Range/Units 10:28 WBC 23.8 H (4.5-11.0) K/mm3 Hgb 15.4 H (10.1-14.3) gm/dl Hct 48.9 H (30.3-42.9) % Plt Count 322 (140-440) K/mm3 BMP 07/28/21 07/29/21 10:28 06:50 Sodium 147 H 147 H Potassium 3.2 L 3.3 L Chloride 109.2 H 107.2 H Carbon Dioxide 3 L* 7 L* BUN 12 23 H Creatinine 0.7 1.0 Glucose 419 H 446 H Calcium 10.0 10.0 Cardiac Enzymes 07/28/21 Range/Units 10:28 Total Creatine Kinase 51 (30-135) units/L Liver Function 07/28/21 07/29/21 Range/Units 10:28 06:50 Total Bilirubin 0.20 0.20 (0.1-1.2) mg/dL Direct Bilirubin < 0.2 (0-0.2) mg/dL AST 11 30 (5-40) units/L ALT 8 11 (7-56) units/L Alkaline Phosphatase 180 H 207 H (35-129) units/L Albumin 3.8 L 4.0 (3.9-5) g/dL Urine 07/28/21 Range/Units 10:07 Urine Color Yellow (Yellow) Urine pH 5.0 (5.0-7.0) Ur Specific [place] 1.014 (1.003-1.030) Urine Protein 100 mg/dl (Negative) mg/dL Urine Glucose (UA) >=500 (Negative) mg/dL Microbiology: Microbiology 07/28/21 10:28 Peripheral/Venous Blood Culture - Preliminary Culture in Progress 07/28/21 10:28 Peripheral/Venous Blood Culture - Preliminary Culture in Progress Assessment and Plan Advance Directives: Yes (Hospice) VTE prophylaxis?: Chemical Plan of care discussed with patient/family: Yes - Patient Problems (1) Acute encephalopathy Current Visit: Yes Status: Acute Plan to address problem: Secondary to underlying urinary tract infection and sepsis Leukocyte count is 23,800 (2) Sepsis Current Visit: Yes Status: Acute Qualifiers: Sepsis type: sepsis due to unspecified organism Plan to address problem: Blood cultures and urine cultures pending Sepsis secondary to urinary tract infection Patient started on IV Rocephin (3) Metabolic acidosis Current Visit: Yes Status: Acute Plan to address problem: Severe IV bicarb as necessary Bicarb drip if necessary (4) Hypokalemia Current Visit: Yes Status: Acute Plan to address problem: Being supplemented (5) Hypernatremia Current Visit: Yes Status: Acute Plan to address problem: Half-normal saline for now (6) Multiple sclerosis Current Visit: Yes Status: Chronic Plan to address problem: With weakness in lower extremities Physical therapy and Occupational Therapy if possible (7) Malnutrition Current Visit: Yes Status: Acute Qualifiers: Protein-calorie malnutrition severity: moderate Plan to address problem: Dietary supplements initiated (8) DVT prophylaxis Current Visit: Yes Status: Acute Plan to address problem: On heparin and GI prophylaxis
[2021-07-28] MEDS ORDERED: HYDROmorphone 1 MG/1 ML INJ IV PRN (18:14)
[2021-07-28] MEDS ORDERED: ACETAMINOPHEN 325 MG TAB PO PRN (18:14)
[2021-07-28] MEDS ORDERED: ONDANSETRON 4 MG/2 ML INJ IV PRN (18:14)
[2021-07-28] MEDS ORDERED: MORPHINE 2 MG/1 ML INJ IV PRN (18:14)
[2021-07-28] MEDS ORDERED: SODIUM BICARB 8.4% 50 MEQ/50 ML SYRINGE IV ONE (18:28)
[2021-07-28] MEDS ORDERED: D5W/0.45% NACL/KCL 20 MEQ 20 MEQ/1,000 ML BAG IV SCH (19:00)
[2021-07-28] MEDS ORDERED: CLONAZEPAM 1 MG PO SCH (20:00)
[2021-07-28] MEDS ORDERED: KEPPRA 1000 MG PO SCH (22:00)
[2021-07-28] MEDS: atenoloL 25 MG TAB PO SCH (23:46)
[2021-07-28] MEDS: amLODIPine 10 MG TAB PO SCH (23:46)
[2021-07-28] MEDS: clonazePAM 0.5 MG TAB PO SCH (23:47)
[2021-07-28] MEDS: hydrALAZINE 25 MG TAB PO SCH (23:47)
[2021-07-28] MEDS: levETIRAcetam 500 MG TAB PO SCH (23:47)
[2021-07-28] MEDS: BACLOFEN 10 MG TAB PO SCH (23:47)
[2021-07-28] MEDS: DOCUSATE SODIUM 100 MG CAP PO SCH (23:47)
[2021-07-28] MEDS: HEPARIN 5,000 UNIT/1 ML VIAL SUB-Q SCH (23:51)
[2021-07-29] MEDS: INSULIN LISPRO 100 UNIT/ML SUB-Q SCH ×5 (00:56→21:56)
[2021-07-29] MEDS: SODIUM CHLORIDE 0.45% 1000 ML 1,000 ML IV SCH ×3 (03:50→20:21)
[2021-07-29] MEDS ORDERED: SODIUM CHLORIDE 0.45% 1000 ML IV SOLN IV ONE (03:54)
[2021-07-29] MEDS ORDERED: INSULIN LISPRO 100 UNIT/ML SUB-Q ONE (04:25)
[2021-07-29] MEDS: hydrALAZINE 25 MG TAB PO SCH ×3 (05:21→21:29)
[2021-07-29] MEDS ORDERED: SODIUM CHLORIDE 0.45% 1000 ML 1,000 ML IV SCH (07:00)
[2021-07-29] MEDS ORDERED: INSULIN LISPRO 100 UNIT/ML SUB-Q SCH (07:30)
[2021-07-29] MEDS: clonazePAM 0.5 MG TAB PO SCH ×3 (08:04→21:30)
[2021-07-29 09:36] LABS: Hematocrit 53.2 % (30.3-42.9); Hemoglobin 16.7 gm/dl (10.1-14.3); Mean Corpuscular HGB Conc 32 % (30-34); Mean Corpuscular Volume 89 fl (79-97); Platelet Count 258 K/mm3 (140-440); Red Blood Count 5.95 M/mm3 (3.65-5.03); Red Cell Distribution Width 15.6 % (13.2-15.2)
[2021-07-29] MEDS ORDERED: SODIUM BICARBONATE 325 MG TAB FEEDTUBE PRN ×2 (10:02→11:14)
[2021-07-29] MEDS ORDERED: SIMPLE SYRUP 15 ML FEEDTUBE PRN ×4 (10:02→11:14)
[2021-07-29] MEDS ORDERED: LIPASE 10,500/PROTEASE 25,000/AMYLASE 43,750 (UNITS) DR CAP FEEDTUBE PRN ×2 (10:02→11:14)
--- NOTE | 2021-07-29 10:32 | XRay Report ---
XR abdomen 1V ap INDICATION: tube placement. COMPARISON: None available. FINDINGS: The tip of the feeding tube projects over the distal stomach. Signer Name: Tony Randolph MD Signed: 07/29/2021 10:28 AM Workstation Name: [id number]
[2021-07-29] MEDS ORDERED: SODIUM BICARB 8.4% 50 MEQ/50 ML SYRINGE IV NR (11:00)
[2021-07-29] MEDS: levETIRAcetam 500 MG TAB PO SCH ×2 (11:16→21:42)
[2021-07-29] MEDS: BACLOFEN 10 MG TAB PO SCH ×2 (11:16→21:28)
[2021-07-29] MEDS: atenoloL 25 MG TAB PO SCH (11:16)
[2021-07-29] MEDS: DOCUSATE SODIUM 100 MG CAP PO SCH (11:17)
[2021-07-29] MEDS: amLODIPine 10 MG TAB PO SCH (11:17)
[2021-07-29] MEDS: cefTRIAXone/NS 2 GM/100 ML 2 GM/100 ML BAG IV SCH (11:22)
[2021-07-29] MEDS: HEPARIN 5,000 UNIT/1 ML VIAL SUB-Q SCH ×2 (11:24→21:28)
[2021-07-29 15:14] LABS: Band Neutrophils # (Manual) 1.2 K/mm3; Total Cells Counted 100
[2021-07-29 15:15] LABS: Giant Platelets Rare; Platelet Estimate Consistent w Auto
--- NOTE | 2021-07-29 16:06 | Progress Note ---
Assessment and Plan -- Acute encephalopathy Secondary to underlying urinary tract infection and sepsis pt also has recent dx of ALS Leukocyte count is 23,800, cont abx follow cx, consult neurology -- Sepsis Blood cultures and urine cultures pending Sepsis secondary to urinary tract infection Patient started on IV Rocephin --Severe Metabolic acidosis IV bicarb as necessary initiate bicarb pill with Tf -- Hypokalemia Being supplemented --Hypernatremia hypotonic saline for now -- ALS With weakness in lower extremities Physical therapy and Occupational Therapy if possible family requested hospice and DNR -- Malnutrition, severe Dietary supplements initiated -- DVT prophylaxis On heparin and GI prophylaxis --DNR Daily clinical course: 07/29/21: discussed with daughter. Patient recently diagnosed with ALS, patient was recommended for hospice by patient's neurologist. But patient continued to decline and apparently stopped Doing anything. pt's daughter wished to proceed with hospice, CM to arrange, for now cont supportive care and follow clinically. ordered for TF,am labs. Daughter also requested MRI brain and neuro consult - order placed Subjective Date of service: 07/29/21 Interval history: Patient seen and examined. Medical records and medication list reviewed. No acute event overnight noted by the RN. Patient remains lethargic and nonverbal Discussed plan of care at bedside with patient's RN Also discussed plan of care with patient daughter by phone. Objective - Exam Narrative Exam: General appearance: Present: no acute distress, well-nourished - EENT Eyes: Present: PERRL ENT: hearing intact, clear oral mucosa - Neck Neck: Present: supple, normal ROM - Respiratory Respiratory effort: normal Respiratory: bilateral: CTA - Cardiovascular Heart rate: 88 Rhythm: regular Heart Sounds: Present: S1 & S2. Absent: rub, click - Extremities Extremities: pulses symmetrical, No edema Peripheral Pulses: within normal limits - Abdominal General gastrointestinal: Present: soft, non-tender, non-distended, normal bowel sounds Female genitourinary: Present: normal - Integumentary Integumentary: Present: clear, warm, dry - Musculoskeletal Musculoskeletal: generalized weakness, other (Muscle wasting in both lower and upper extremities) - Psychiatric Psychiatric: other (Lethargic) - Neurologic Neurologic: moves all extremities, other (Lethargic) - Constitutional Vitals: Vital Signs - 12hr 07/29/21 07/29/21 04:57 05:14 Pulse Rate 117 H Respiratory 20 Rate Blood Pressure 110/76 O2 Sat by Pulse 98 99 Oximetry - Labs CBC & Chem 7: 07/29/21 07:47 07/29/21 06:50 Labs: Abnormal lab results 07/28/21 07/29/21 07/29/21 Range/Units 16:59 00:25 03:16 WBC (4.5-11.0) K/mm3 RBC (3.65-5.03) M/mm3 Hgb (10.1-14.3) gm/dl Hct (30.3-42.9) % RDW (13.2-15.2) % Seg Neuts % (Manual) (40.0-70.0) % Seg Neutrophils # Man (1.8-7.7) K/mm3 Monocytes # (Manual) (0.0-0.8) K/mm3 Sodium (137-145) mmol/L Potassium (3.6-5.0) mmol/L Chloride (98-107) mmol/L Carbon Dioxide (22-30) mmol/L BUN (7-17) mg/dL Glucose (65-100) mg/dL POC Glucose 359 H 440 H 531 H (70-105) mg/dL Alkaline Phosphatase (35-129) units/L Total Protein (6.3-8.2) g/dL 07/29/21 07/29/21 07/29/21 Range/Units 05:46 06:50 07:47 WBC 30.8 H (4.5-11.0) K/mm3 RBC 5.95 H (3.65-5.03) M/mm3 Hgb 16.7 H (10.1-14.3) gm/dl Hct 53.2 H (30.3-42.9) % RDW 15.6 H (13.2-15.2) % Seg Neuts % (Manual) 74.0 H (40.0-70.0) % Seg Neutrophils # Man 22.8 H (1.8-7.7) K/mm3 Monocytes # (Manual) 1.5 H (0.0-0.8) K/mm3 Sodium 147 H (137-145) mmol/L Potassium 3.3 L (3.6-5.0) mmol/L Chloride 107.2 H (98-107) mmol/L Carbon Dioxide 7 L* (22-30) mmol/L BUN 23 H (7-17) mg/dL Glucose 446 H (65-100) mg/dL POC Glucose 507 H (70-105) mg/dL Alkaline Phosphatase 207 H (35-129) units/L Total Protein 8.6 H (6.3-8.2) g/dL 07/29/21 Range/Units 10:09 WBC (4.5-11.0) K/mm3 RBC (3.65-5.03) M/mm3 Hgb (10.1-14.3) gm/dl Hct (30.3-42.9) % RDW (13.2-15.2) % Seg Neuts % (Manual) (40.0-70.0) % Seg Neutrophils # Man (1.8-7.7) K/mm3 Monocytes # (Manual) (0.0-0.8) K/mm3 Sodium (137-145) mmol/L Potassium (3.6-5.0) mmol/L Chloride (98-107) mmol/L Carbon Dioxide (22-30) mmol/L BUN (7-17) mg/dL Glucose (65-100) mg/dL POC Glucose 319 H (70-105) mg/dL Alkaline Phosphatase (35-129) units/L Total Protein (6.3-8.2) g/dL
[2021-07-29] MEDS ORDERED: SODIUM BICARB 8.4% 50 MEQ/50 ML SYRINGE IV ONE (18:30)
[2021-07-29] MEDS: DOCUSATE SODIUM 100 MG/10 ML ORAL LIQD PO SCH (21:42)
[2021-07-29] MEDS ORDERED: D5W IV SCH (23:45)
[2021-07-29] MEDS ORDERED: NACL IV SCH (23:45)
[2021-07-30] MEDS: hydrALAZINE 25 MG TAB PO SCH ×3 (06:06→23:03)
[2021-07-30 08:37] LABS: Hematocrit 43.5 % (30.3-42.9); Hemoglobin 14.1 gm/dl (10.1-14.3); Mean Corpuscular HGB Conc 33 % (30-34); Mean Corpuscular Volume 86 fl (79-97); Platelet Count 200 K/mm3 (140-440); Red Blood Count 5.05 M/mm3 (3.65-5.03); Red Cell Distribution Width 15.1 % (13.2-15.2)
[2021-07-30 09:14] LABS: Calcium 9.8 mg/dL (8.4-10.2)
[2021-07-30] MEDS ORDERED: NACL 0.9%/KCL 40 MEQ 40 MEQ/1,000 ML BAG IV SCH (10:00)
[2021-07-30] MEDS: BACLOFEN 10 MG TAB PO SCH (10:11)
[2021-07-30] MEDS: POTASSIUM CHLORIDE ER 20 MEQ TAB PO NR ×2 (10:11→12:37)
[2021-07-30] MEDS: SODIUM CHLORIDE 0.9% 1000 ML 1,000 ML IV SCH ×2 (10:11→18:47)
[2021-07-30] MEDS: levETIRAcetam 500 MG TAB PO SCH ×2 (10:12→22:57)
[2021-07-30] MEDS: DOCUSATE SODIUM 100 MG/10 ML ORAL LIQD PO SCH ×2 (10:12→22:55)
[2021-07-30] MEDS: HEPARIN 5,000 UNIT/1 ML VIAL SUB-Q SCH ×2 (10:13→22:57)
[2021-07-30] MEDS ORDERED: INSULIN LISPRO 100 UNIT/ML SUB-Q ONE (10:15)
[2021-07-30] MEDS: clonazePAM 0.5 MG TAB PO SCH (10:16)
[2021-07-30] MEDS: INSULIN LISPRO 100 UNIT/ML SUB-Q SCH ×4 (10:27→23:02)
[2021-07-30] MEDS: atenoloL 25 MG TAB PO SCH ×2 (10:33→11:47)
[2021-07-30] MEDS: amLODIPine 10 MG TAB PO SCH ×2 (10:33→11:50)
[2021-07-30] MEDS: POTASSIUM CHLORIDE 10 MEQ 10 MEQ/100 ML BAG IV SCH ×2 (10:35→11:49)
[2021-07-30] MEDS: cefTRIAXone/NS 2 GM/100 ML 2 GM/100 ML BAG IV SCH (10:35)
--- NOTE | 2021-07-30 10:41 | Consultation ---
History of Present Illness Consult date: 07/30/21 Reason for Consult: Altered mentation History of present illness: Altered sensorium for 3 days History of present illness: Patient is 61 years old female with history of multiple sclerosis and hypertension. According to the EMS that brought the patient from home that patient is a hospice patient. Family informed EMS that patient has been having decreased mentation and unresponsiveness for the last 3 days. They also noticed a foul-smelling urine. Family also reported that patient has been treated for UTI several times in the last few month. Upon arrival to the ER patient is obtunded however she is responding to painful stimuli. Patient vital signs stable with oxygen saturation of 98% on room air. pt. today is obtunded, limb respond to no stimuli , no facial asymmetry she is with wasting in interossei , and both feet everted . WBCs count today is down to 24K Glucose is #500 - Past Medical History --Hypertension: Yes --Additional medical history: MS, possible ALS - Surgical History --Additional Surgical History: Unknown - Social History --Smoking Status: Never Smoker --Substance Use Type: None Review of Systems ROS: Stated complaint: WEAKNESS,LETHARGIC Other details as noted in HPI Comment: Unobtainable due to pts medical conditions Medications and Allergies Allergies Allergy/AdvReac Type Severity Reaction Status Date / Time No Known Allergies Allergy Verified 05/09/20 17:51 Home Medications Medication Instructions Recorded Confirmed Last Taken Type atenoloL [Tenormin] 25 mg PO DAILY #30 tab 12/15/17 06/25/20 Unknown Rx LORazepam [Lorazepam] 1 mg PO QDAY 08/17/19 06/25/20 Unknown History Docusate Sodium [Colace CAP] 100 mg PO BID capsule 08/22/19 06/25/20 06/25/20 10:36 Rx Baclofen 20 mg PO BID 05/09/20 06/25/20 06/25/20 10:36 History AtorvaSTATin [Lipitor] 80 mg PO QHS tablet 05/11/20 06/25/20 Unknown Rx Keppra TAB 1,000 mg PO BID #30 05/11/20 06/25/20 06/25/20 10:36 Rx clonazePAM 1 mg PO TID #90 05/11/20 06/25/20 Unknown Rx amLODIPine 10 mg PO QDAY #60 tablet 06/26/20 Unknown Rx hydrALAZINE [Apresoline TAB] 50 mg PO Q8HR #90 tablet 06/26/20 Unknown Rx levoFLOXacin [Levaquin] 750 mg PO QDAY #4 tablet 06/26/20 Unknown Rx Medications and Allergies Allergies Allergy/AdvReac Type Severity Reaction Status Date / Time No Known Allergies Allergy Verified 05/09/20 17:51 Home Medications Medication Instructions Recorded Confirmed Last Taken Type atenoloL [Tenormin] 25 mg PO DAILY #30 tab 12/15/17 06/25/20 Unknown Rx LORazepam [Lorazepam] 1 mg PO QDAY 08/17/19 06/25/20 Unknown History Docusate Sodium [Colace CAP] 100 mg PO BID capsule 08/22/19 06/25/20 06/25/20 10:36 Rx Baclofen 20 mg PO BID 05/09/20 06/25/20 06/25/20 10:36 History AtorvaSTATin [Lipitor] 80 mg PO QHS tablet 05/11/20 06/25/20 Unknown Rx Keppra TAB 1,000 mg PO BID #30 05/11/20 06/25/20 06/25/20 10:36 Rx clonazePAM 1 mg PO TID #90 05/11/20 06/25/20 Unknown Rx amLODIPine 10 mg PO QDAY #60 tablet 06/26/20 Unknown Rx hydrALAZINE [Apresoline TAB] 50 mg PO Q8HR #90 tablet 06/26/20 Unknown Rx levoFLOXacin [Levaquin] 750 mg PO QDAY #4 tablet 06/26/20 Unknown Rx Active Meds: Active Medications Acetaminophen (Acetaminophen 325 Mg Tab) 650 mg PO Q4H PRN PRN Reason: Pain MILD(1-3)/Fever >100.5/LOYA Last Admin: 07/30/21 06:16 Dose: 650 mg Documented by: Amlodipine Besylate (Amlodipine 10 Mg Tab) 10 mg PO QDAY [facility] Last Admin: 07/29/21 11:17 Dose: Not Given Documented by: Lipase/Protease/Amylase (Lipase 10,500/Protease 25,000/Amylase 43,750 (Units) Dr Rodriguez) 1 each FEEDTUBE PRN PRN PRN Reason: For Clogged Feeding Tube Atenolol (Atenolol 25 Mg Tab) 25 mg PO DAILY [facility] Last Admin: 07/29/21 11:16 Dose: Not Given Documented by: Atorvastatin Calcium (Atorvastatin 40 Mg Tab) 80 mg PO QHS [facility] Last Admin: 07/29/21 21:29 Dose: 80 mg Documented by: Baclofen (Baclofen 10 Mg Tab) 20 mg PO BID [facility] Last Admin: 07/30/21 10:11 Dose: 20 mg Documented by: Clonazepam (Clonazepam 0.5 Mg Tab) 1 mg PO TID [facility] Last Admin: 07/30/21 10:16 Dose: Not Given Documented by: Docusate Sodium (Docusate Sodium 100 Mg/10 Ml Oral Liqd) 100 mg PO BID [facility] Last Admin: 07/30/21 10:12 Dose: 100 mg Documented by: Heparin Sodium (Porcine) (Heparin 5,000 Unit/1 Ml Vial) 5,000 unit SUB-Q Q12HR [facility] Last Admin: 07/30/21 10:13 Dose: 5,000 unit Documented by: Hydralazine HCl (Hydralazine 25 Mg Tab) 50 mg PO Q8HR [facility] Last Admin: 07/30/21 06:06 Dose: 50 mg Documented by: Hydromorphone HCl (Hydromorphone 1 Mg/1 Ml Inj) 0.5 mg IV Q3H PRN PRN Reason: Pain , Severe (7-10) Ceftriaxone Sodium (Rocephin/Ns 2 Gm/100 Ml) 2 gm in 100 mls @ 200 mls/hr IV Q24H [facility]; Protocol Stop: 08/04/21 09:59 Last Admin: 07/29/21 11:22 Dose: 200 mls/hr Documented by: Potassium Chloride (Kcl 10meq/100ml) 10 meq in 100 mls @ 100 mls/hr IV Q1H [facility] Stop: 07/30/21 12:59 Sodium Chloride (Nacl 0.9% 1000 Ml) 1,000 mls @ 125 mls/hr IV DIRECT [facility] Last Admin: 07/30/21 10:11 Dose: 125 mls/hr Documented by: Insulin Human Lispro (Insulin Lispro 100 Unit/Ml) 0 unit SUB-Q ACHS [facility]; Protocol Last Admin: 07/30/21 10:27 Dose: Not Given Documented by: Levetiracetam (Levetiracetam 500 Mg Tab) 1,000 mg PO BID [facility] Last Admin: 07/30/21 10:12 Dose: 1,000 mg Documented by: Morphine Sulfate (Morphine 2 Mg/1 Ml Inj) 2 mg IV Q4H PRN PRN Reason: Pain, Moderate (4-6) Ondansetron HCl (Ondansetron 4 Mg/2 Ml Inj) 4 mg IV Q8H PRN PRN Reason: Nausea And Vomiting Potassium Chloride (Potassium Chloride Er 20 Meq Tab) 40 meq PO ONCE@1000 NR Stop: 07/30/21 14:00 Last Admin: 07/30/21 10:11 Dose: 40 meq Documented by: Simple Syrup (Simple Syrup 15 Ml) 15 ml FEEDTUBE PRN PRN PRN Reason: Hypoglycemia Simple Syrup (Simple Syrup 15 Ml) 30 ml FEEDTUBE PRN PRN PRN Reason: Hypoglycemia Sodium Bicarbonate (Sodium Bicarbonate 325 Mg Tab) 325 mg FEEDTUBE PRN PRN PRN Reason: For Clogged Feeding Tube Sodium Chloride (Sodium Chloride 0.9% 10 Ml Flush Syringe) 10 ml IV BID [facility] Last Admin: 07/29/21 21:31 Dose: 10 ml Documented by: Sodium Chloride (Sodium Chloride 0.9% 10 Ml Flush Syringe) 10 ml IV PRN PRN PRN Reason: LINE FLUSH Physical Examination - Vital Signs Vital Signs: Vital Signs Pulse Ox 99 07/28/21 09:39 - Constitutional General appearance: uncomfortable, other (unresponsive) - EENT EENT: Present: PERRL, mucous membranes moist - Respiratory Respiratory: Present: lungs clear, rhonchi - Cardiovascular Cardiovascular: Present: regular rate, normal S1, normal S2 Extremities: Present: no peripheral edema bilatateraly, no clubbing, cyanosis - Gastrointestinal Gastrointestinal: Present: normoactive bowel sounds - Integumentary Integumentary: Present: normal - Neurologic Cranial nerve examination: PERRL, EOMI, intact Speech examination: other (obtunded, unresponsive to stimuli) Detailed motor examination: other (is limbs both upper and lower ext., she is with wasting interossei bilateral and everted both feet , no clonus , ) Results - Laboratory Findings CBC and BMP: 07/30/21 08:24 07/30/21 08:24 Abnormal Lab Findings: Abnormal Labs 07/28/21 07/28/21 07/28/21 10:07 10:28 10:28 WBC 23.8 H RBC 5.43 H Hgb 15.4 H Hct 48.9 H RDW 15.4 H Seg Neuts % (Manual) 83.0 H Lymphocytes % (Manual) 10.0 L Seg Neutrophils # Man 19.8 H Monocytes # (Manual) 1.0 H Sodium 147 H Potassium 3.2 L Chloride 109.2 H Carbon Dioxide 3 L* BUN Glucose 419 H POC Glucose Lactic Acid Alkaline Phosphatase 180 H Total Protein 8.5 H Albumin 3.8 L Urine WBC (Auto) > 182.0 H 07/28/21 07/28/21 07/29/21 10:28 16:59 00:25 WBC RBC Hgb Hct RDW Seg Neuts % (Manual) Lymphocytes % (Manual) Seg Neutrophils # Man Monocytes # (Manual) Sodium Potassium Chloride Carbon Dioxide BUN Glucose POC Glucose 359 H 440 H Lactic Acid 2.90 H* Alkaline Phosphatase Total Protein Albumin Urine WBC (Auto) 07/29/21 07/29/21 07/29/21 03:16 05:46 06:50 WBC RBC Hgb Hct RDW Seg Neuts % (Manual) Lymphocytes % (Manual) Seg Neutrophils # Man Monocytes # (Manual) Sodium 147 H Potassium 3.3 L Chloride 107.2 H Carbon Dioxide 7 L* BUN 23 H Glucose 446 H POC Glucose 531 H 507 H Lactic Acid Alkaline Phosphatase 207 H Total Protein 8.6 H Albumin Urine WBC (Auto) 07/29/21 07/29/21 07/29/21 07:47 10:09 18:03 WBC 30.8 H RBC 5.95 H Hgb 16.7 H Hct 53.2 H RDW 15.6 H Seg Neuts % (Manual) 74.0 H Lymphocytes % (Manual) Seg Neutrophils # Man 22.8 H Monocytes # (Manual) 1.5 H Sodium Potassium Chloride Carbon Dioxide BUN Glucose POC Glucose 319 H 154 H Lactic Acid Alkaline Phosphatase Total Protein Albumin Urine WBC (Auto) 07/29/21 07/30/21 07/30/21 21:19 07:17 08:24 WBC 24.8 H RBC 5.05 H Hgb Hct 43.5 H D RDW Seg Neuts % (Manual) Lymphocytes % (Manual) Seg Neutrophils # Man Monocytes # (Manual) Sodium Potassium Chloride Carbon Dioxide BUN Glucose POC Glucose 108 H 421 H Lactic Acid Alkaline Phosphatase Total Protein Albumin Urine WBC (Auto) 07/30/21 08:24 WBC RBC Hgb Hct RDW Seg Neuts % (Manual) Lymphocytes % (Manual) Seg Neutrophils # Man Monocytes # (Manual) Sodium Potassium 2.4 L* D Chloride Carbon Dioxide 7 L* BUN 30 H Glucose 521 H* POC Glucose Lactic Acid Alkaline Phosphatase Total Protein Albumin Urine WBC (Auto) Assessment and Plan Assessment and Plan Advance Directives: Yes (Hospice) VTE prophylaxis?: Chemical Plan of care discussed with patient/family: Yes - Patient Problems #Acute encephalopathy - Multifactorial in part related to underlying infection,Dehydration, ketoacidosis -Leukocyte count is#30.8-- 23,800with bandemia # Sepsis -Blood cultures and urine cultures pending -Sepsis secondary to urinary tract infection -Patient started on IV Rocephin # Metabolic acidosis - with hyperglycemia and ketoacidosis -Severe,HCO3#7 -IV bicarb as necessary -Bicarb drip if necessary # Hypokalemia -Being supplemented # Hypernatremia -Half-normal saline for now #Multiple sclerosis and or possible hx of ALS she is currently started on tube feeding -Hold Klonpine and Baclofen -On Keppra ? reduce to 500 Mg Bid, -EEG -Head CT and or MRI -With weakness in lower extremities -Physical therapy and Occupational Therapy if possible # Malnutrition -Dietary supplements initiated (8) DVT prophylaxis -On heparin and GI prophylaxis PLAN 1- Treat underlying infection 2- Hydration 3- Correct electrolytes and Glucose abnormality 4- Cut down Keppra to 500 mg Bid 5- EEG 6- Hold Baclofen and Klonpine 7- CT brain and or mRI will follow
[2021-07-30] MEDS ORDERED: SODIUM BICARBONATE 325 MG TAB FEEDTUBE PRN ×2 (14:03→15:00)
[2021-07-30] MEDS ORDERED: SIMPLE SYRUP 15 ML FEEDTUBE PRN ×4 (14:03→15:00)
[2021-07-30] MEDS ORDERED: LIPASE 10,500/PROTEASE 25,000/AMYLASE 43,750 (UNITS) DR CAP FEEDTUBE PRN (14:03)
[2021-07-30] MEDS ORDERED: INSULIN LISPRO 100 UNIT/ML SUB-Q NR (14:30)
--- NOTE | 2021-07-30 17:59 | Progress Note ---
Assessment and Plan Assessment and plan: 61 years old female with history of multiple sclerosis and hypertension. According to the EMS that brought the patient from home that patient is a hospice patient. Family informed EMS that patient has been having decreased mentation and unresponsiveness for the last 3 days. They also noticed a foul- smelling urine. Family also reported that patient has been treated for UTI several times in the last few month. Upon arrival to the ER patient is obtunded however she is responding to painful stimuli. Patient vital signs stable with oxygen saturation of 98% on room air. -- Acute encephalopathy Secondary to underlying urinary tract infection and sepsis pt also has recent dx of ALS Leukocyte count is 23,800, cont abx follow cx, consult neurology -- Sepsis Blood cultures and urine cultures pending Sepsis secondary to urinary tract infection Patient started on IV Rocephin --Severe Metabolic acidosis IV bicarb as necessary initiate bicarb pill with Tf -- Hypokalemia Being supplemented --Hypernatremia hypotonic saline for now -- ALS With weakness in lower extremities Physical therapy and Occupational Therapy if possible family requested hospice and DNR -- Malnutrition, severe Dietary supplements initiated -- DVT prophylaxis On heparin and GI prophylaxis --DNR Daily clinical course: 07/29/21: discussed with daughter. Patient recently diagnosed with ALS, patient was recommended for hospice by patient's neurologist. But patient continued to decline and apparently stopped Doing anything. pt's daughter wished to proceed with hospice, CM to arrange, for now cont supportive care and follow clinically. ordered for TF,am labs. Daughter also requested MRI brain and neuro consult - order placed 07/30/2021:Patient is obtumded and minimally responsive to pain. She is very acidotic with anion gap acidosis and hypokalemic with blood glucose running 400s to 500s. She is also currently on D5 infusion as well as tube feeds. Change IV fluids to normal saline and ordered IV potassium supplements. Patient has been under hospice care and is DNR. automotive services manager is attempting to transfer to an inpatient hospice facility. She is receiving comfort measures. Prognosis is grave. Discussed with the nursing staff and the caser. History Interval history: Patient is obtumded and minimally responsive to pain. She is very acidotic with blood glucose running 400s to 400s. She is also currently on D5 infusion as well as tube feeds. Patient has been under hospice care and is DNR. automotive services manager is attempting to transfer to an inpatient hospice facility. She is receiving comfort measures. Prognosis is grave. Hospitalist Physical - Constitutional Vitals: Temp Pulse Resp BP Pulse Ox 98.1 F 141 H 18 118/68 98 07/30/21 10:25 07/30/21 10:25 07/30/21 10:25 07/30/21 10:25 07/30/21 10:25 General appearance: Present: other (obtumded and minimally responsive to pain.) - EENT ENT: other (eyes closed and face symmetrical) - Neck Neck: Present: supple - Respiratory Respiratory effort: normal Respiratory: bilateral: CTA - Cardiovascular Rhythm: regular - Extremities Extremities: No edema - Abdominal General gastrointestinal: soft, non-tender, non-distended, normal bowel sounds - Integumentary Integumentary: Absent: rash - Neurologic Neurologic: other (obtumded and minimally responsive to pain.) Results - Labs CBC & Chem 7: 07/30/21 08:24 07/30/21 08:24 Labs: Laboratory Last Values WBC 24.8 K/mm3 (4.5-11.0) H 07/30/21 08:24 RBC 5.05 M/mm3 (3.65-5.03) H 07/30/21 08:24 Hgb 14.1 gm/dl (10.1-14.3) 07/30/21 08:24 Hct 43.5 % (30.3-42.9) H D 07/30/21 08:24 MCV 86 fl (79-97) 07/30/21 08:24 MCH 28 pg (28-32) 07/30/21 08:24 MCHC 33 % (30-34) 07/30/21 08:24 RDW 15.1 % (13.2-15.2) 07/30/21 08:24 Plt Count 200 K/mm3 (140-440) 07/30/21 08:24 Lymph % (Auto) Tool Grinder Operator 07/29/21 07:47 [place] % (Auto) Tool Grinder Operator 07/29/21 07:47 Eos % (Auto) Tool Grinder Operator 07/29/21 07:47 Baso % (Auto) Tool Grinder Operator 07/29/21 07:47 Lymph # (Auto) Tool Grinder Operator 07/29/21 07:47 [place] # (Auto) Tool Grinder Operator 07/29/21 07:47 Eos # (Auto) Tool Grinder Operator 07/29/21 07:47 Baso # (Auto) Tool Grinder Operator 07/29/21 07:47 Add Manual Diff Complete 07/29/21 07:47 Total Counted 100 07/29/21 07:47 Seg Neutrophils % Tool Grinder Operator 07/29/21 07:47 Seg Neuts % (Manual) 74.0 % (40.0-70.0) H 07/29/21 07:47 Band Neutrophils % 4.0 % 07/29/21 07:47 Lymphocytes % (Manual) 17.0 % (13.4-35.0) 07/29/21 07:47 Reactive Lymphs % (Man) 3.0 % 07/28/21 10:28 Monocytes % (Manual) 5.0 % (0.0-7.3) 07/29/21 07:47 Nucleated RBC % Not Reportable 07/29/21 07:47 Seg Neutrophils # Tool Grinder Operator 07/29/21 07:47 Seg Neutrophils # Man 22.8 K/mm3 (1.8-7.7) H 07/29/21 07:47 Band Neutrophils # 1.2 K/mm3 07/29/21 07:47 Lymphocytes # (Manual) 5.2 K/mm3 (1.2-5.4) 07/29/21 07:47 Abs React Lymphs (Man) 0.0 K/mm3 07/29/21 07:47 Monocytes # (Manual) 1.5 K/mm3 (0.0-0.8) H 07/29/21 07:47 Eosinophils # (Manual) 0.0 K/mm3 (0.0-0.4) 07/29/21 07:47 Basophils # (Manual) 0.0 K/mm3 (0.0-0.1) 07/29/21 07:47 Metamyelocytes # 0.0 K/mm3 07/29/21 07:47 Myelocytes # 0.0 K/mm3 07/29/21 07:47 Promyelocytes # 0.0 K/mm3 07/29/21 07:47 Blast Cells # 0.0 K/mm3 07/29/21 07:47 WBC Morphology Not Reportable 07/29/21 07:47 Hypersegmented Neuts Not Reportable 07/29/21 07:47 Hyposegmented Neuts Not Reportable 07/29/21 07:47 Hypogranular Neuts Not Reportable 07/29/21 07:47 Smudge Cells Not Reportable 07/29/21 07:47 Toxic Granulation Not Reportable 07/29/21 07:47 Toxic Vacuolation Not Reportable 07/29/21 07:47 Dohle Bodies Not Reportable 07/29/21 07:47 Pelger-Huet Anomaly Not Reportable 07/29/21 07:47 Leroy Rods Not Reportable 07/29/21 07:47 Platelet Estimate Consistent w auto 07/29/21 07:47 Clumped Platelets Not Reportable 07/29/21 07:47 Plt Clumps, EDTA Not Reportable 07/29/21 07:47 Large Platelets Not Reportable 07/29/21 07:47 Giant Platelets Rare 07/29/21 07:47 Platelet Satelliting Not Reportable 07/29/21 07:47 Plt Morphology Comment Not Reportable 07/29/21 07:47 RBC Morphology Not Reportable 07/29/21 07:47 Dimorphic RBCs Not Reportable 07/29/21 07:47 Polychromasia Not Reportable 07/29/21 07:47 Hypochromasia Not Reportable 07/29/21 07:47 Poikilocytosis Not Reportable 07/29/21 07:47 Anisocytosis Not Reportable 07/29/21 07:47 Microcytosis Not Reportable 07/29/21 07:47 Macrocytosis Not Reportable 07/29/21 07:47 Spherocytes Not Reportable 07/29/21 07:47 Pappenheimer Bodies Not Reportable 07/29/21 07:47 Sickle Cells Not Reportable 07/29/21 07:47 Target Cells Not Reportable 07/29/21 07:47 Tear Drop Cells Not Reportable 07/29/21 07:47 Ovalocytes Not Reportable 07/29/21 07:47 Helmet Cells Not Reportable 07/29/21 07:47 [place] Bodies Not Reportable 07/29/21 07:47 [place] Rings Not Reportable 07/29/21 07:47 Megan Cells Not Reportable 07/29/21 07:47 Bite Cells Not Reportable 07/29/21 07:47 Crenated Cell Not Reportable 07/29/21 07:47 Elliptocytes Not Reportable 07/29/21 07:47 Acanthocytes (Spur) Rare 07/29/21 07:47 Rouleaux Not Reportable 07/29/21 07:47 Hemoglobin C Crystals Not Reportable 07/29/21 07:47 Schistocytes Not Reportable 07/29/21 07:47 Malaria parasites Not Reportable 07/29/21 07:47 [place] Bodies Not Reportable 07/29/21 07:47 Hem Pathologist Commnt No 07/29/21 07:47 Sodium 142 mmol/L (137-145) 07/30/21 08:24 Potassium 2.4 mmol/L (3.6-5.0) L* D 07/30/21 08:24 Chloride 100.5 mmol/L (98-107) 07/30/21 08:24 Carbon Dioxide 7 mmol/L (22-30) L* 07/30/21 08:24 Anion Gap 37 mmol/L 07/30/21 08:24 BUN 30 mg/dL (7-17) H 07/30/21 08:24 Creatinine 1.2 mg/dL (0.6-1.2) 07/30/21 08:24 Estimated GFR 46 ml/min 07/30/21 08:24 BUN/Creatinine Ratio 25 % 07/30/21 08:24 Glucose 521 mg/dL (65-100) H* 07/30/21 08:24 POC Glucose 443 mg/dL (70-105) H 07/30/21 13:10 Lactic Acid 2.90 mmol/L (0.7-2.0) H* 07/28/21 10:28 Calcium 9.8 mg/dL (8.4-10.2) 07/30/21 08:24 Total Bilirubin 0.20 mg/dL (0.1-1.2) 07/29/21 06:50 Direct Bilirubin < 0.2 mg/dL (0-0.2) 07/28/21 10:28 Indirect Bilirubin 0.0 mg/dL 07/28/21 10:28 AST 30 units/L (5-40) 07/29/21 06:50 ALT 11 units/L (7-56) 07/29/21 06:50 Alkaline Phosphatase 207 units/L (35-129) H 07/29/21 06:50 Ammonia 51.0 umol/L (25-60) 07/28/21 10:28 Total Creatine Kinase 51 units/L (30-135) 07/28/21 10:28 Total Protein 8.6 g/dL (6.3-8.2) H 07/29/21 06:50 Albumin 4.0 g/dL (3.9-5) 07/29/21 06:50 Albumin/Globulin Ratio 0.9 % 07/29/21 06:50 Urine Color Yellow (Yellow) 07/28/21 10:07 Urine Turbidity Cloudy (Clear) 07/28/21 10:07 Urine pH 5.0 (5.0-7.0) 07/28/21 10:07 Ur Specific [place] 1.014 (1.003-1.030) 07/28/21 10:07 Urine Protein 100 mg/dl mg/dL (Negative) 07/28/21 10:07 Urine Glucose (UA) >=500 mg/dL (Negative) 07/28/21 10:07 Urine Ketones 80 mg/dL (Negative) 07/28/21 10:07 Urine Blood Mod (Negative) 07/28/21 10:07 Urine Nitrite Neg (Negative) 07/28/21 10:07 Urine Bilirubin Neg (Negative) 07/28/21 10:07 Urine Urobilinogen < 2.0 mg/dL (<2.0) 07/28/21 10:07 Ur Leukocyte Esterase Lg (Negative) 07/28/21 10:07 Urine WBC (Auto) > 182.0 /HPF (0.0-6.0) H 07/28/21 10:07 Urine RBC (Auto) 5.0 /HPF (0.0-6.0) 07/28/21 10:07 Urine Bacteria (Auto) 1+ /HPF (Negative) 07/28/21 10:07 Urine Mucus Few /HPF 07/28/21 10:07 Microbiology: Microbiology 07/28/21 10:28 Peripheral/Venous Blood Culture - Preliminary NO GROWTH AFTER 48 HOURS 07/28/21 10:28 Peripheral/Venous Blood Culture - Preliminary NO GROWTH AFTER 48 HOURS [place]/IV: Voiding Method External Female Catheter Active Medications - Current Medications Current Medications: Generic Name Dose Route Start Last Admin Trade Name Freq PRN Reason Stop Dose Admin Acetaminophen 650 mg 07/28/21 18:14 07/30/21 06:16 Acetaminophen 325 Mg Tab PO 650 mg Q4H PRN Administration Pain MILD(1-3)/Fever >100.5/LOYA Amlodipine Besylate 10 mg 07/28/21 19:00 07/30/21 11:50 Amlodipine 10 Mg Tab PO 10 mg QDAY ARIA Administration Lipase/Protease/Amylase 1 each 07/30/21 14:03 Lipase 10,500/Protease 25,000/Amylase 43,750 (Units) Dr Rodriguez FEEDTUBE PRN PRN For Clogged Feeding Tube Atenolol 25 mg 07/28/21 19:00 07/30/21 11:47 Atenolol 25 Mg Tab PO 25 mg DAILY ARIA Administration Atorvastatin Calcium 80 mg 07/28/21 22:00 07/29/21 21:29 Atorvastatin 40 Mg Tab PO 80 mg QHS ARIA Administration Docusate Sodium 100 mg 07/29/21 22:00 07/30/21 10:12 Docusate Sodium 100 Mg/10 Ml Oral Liqd PO 100 mg BID ARIA Administration Heparin Sodium (Porcine) 5,000 unit 07/28/21 22:00 07/30/21 10:13 Heparin 5,000 Unit/1 Ml Vial SUB-Q 5,000 unit Q12HR ARIA Administration Hydralazine HCl 50 mg 07/28/21 22:00 07/30/21 14:40 Hydralazine 25 Mg Tab PO Not Given Q8HR ARIA Hydromorphone HCl 0.5 mg 07/28/21 18:14 Hydromorphone 1 Mg/1 Ml Inj IV Q3H PRN Pain , Severe (7-10) Ceftriaxone Sodium 2 gm in 100 mls @ 200 mls/hr 07/29/21 10:00 07/30/21 16:03 Rocephin/Ns 2 Gm/100 Ml IV 08/04/21 09:59 Infused Q24H [facility] Infusion Protocol Sodium Chloride 1,000 mls @ 125 mls/hr 07/30/21 10:15 07/30/21 10:11 Nacl 0.9% 1000 Ml IV 125 mls/hr DIRECT ARIA Administration Insulin Human Lispro 0 unit 07/29/21 01:00 07/30/21 14:39 Insulin Lispro 100 Unit/Ml SUB-Q Not Given ACHS [facility] Protocol Levetiracetam 500 mg 07/30/21 10:53 Levetiracetam 500 Mg Tab PO BID ARIA Morphine Sulfate 2 mg 07/28/21 18:14 Morphine 2 Mg/1 Ml Inj IV Q4H PRN Pain, Moderate (4-6) Ondansetron HCl 4 mg 07/28/21 18:14 Ondansetron 4 Mg/2 Ml Inj IV Q8H PRN Nausea And Vomiting Simple Syrup 15 ml 07/30/21 15:00 Simple Syrup 15 Ml FEEDTUBE PRN PRN Hypoglycemia Simple Syrup 30 ml 07/30/21 15:00 Simple Syrup 15 Ml FEEDTUBE PRN PRN Hypoglycemia Sodium Bicarbonate 325 mg 07/30/21 15:00 Sodium Bicarbonate 325 Mg Tab FEEDTUBE PRN PRN For Clogged Feeding Tube Sodium Chloride 10 ml 07/28/21 22:00 07/30/21 14:37 Sodium Chloride 0.9% 10 Ml Flush Syringe IV 10 ml BID ARIA Administration Sodium Chloride 10 ml 07/28/21 18:14 Sodium Chloride 0.9% 10 Ml Flush Syringe IV PRN PRN LINE FLUSH Nutrition/Malnutrition Assess - Dietary Evaluation Nutrition/Malnutrition Findings: Nutrition Notes Start: 07/29/21 10:00 Freq: Status: Active Protocol: Document 07/30/21 13:56 GB (Rec: 07/30/21 14:03 GB [id number]) Nutrition Notes Initial or Follow up Brief Note Current Diagnosis Sepsis,Hypertension Other Pertinent Diagnosis AMS, Lethargic, UTI infection. Current Diet Tube Feeding (since L 07/29). Labs/Tests 07/30: K 2.4, CO2 7, BUN 30, Glu 521. Pertinent Medications 07/29: Pancreatic enzymes, Simple msyrup. Height 5 ft 9 in Weight 43.5 kg [place] Body Weight (kg) 65.90 BMI 14.1 Subjective/Other Information Per phone discussion with RN: request for change of formula r/t elevated glucose. Formula changed from Vital 1.2 to glucerna 1.2. #1 Nutrition Diagnosis Inadequate oral intake Comments: Pt does not show signs of concern for skin risk at the time. Etiology Pt current clinical condition, difficulty chewing & swalloing according to H&P notes, and MD prescription for Tube Feeding. As Evidenced by Signs and Symptoms Low BMI, abnormal chemistry lab values. Is patient on ventilator? No Is Patient Ambulatory and/or Out of Bed No REE-([facility]-confined to bed) 1276.680 Kcal/Kg value to use for calculation 35 Approximate Energy Requirements Using 1523 kcal/Kg Calculation Used for Recommendations Kcal/kg Additional Notes Protein: 1.2-1.5 g/Kg/day; 79- 99 g/day; 316-396 Kcal/day ( from IBW+Critical care). Fluids: 1 ml/Kcal/day, or as per MD. Nutrition Intervention Change Diet Order: Start Tube Feeding as per MD. 07/30: started Nutrition Support: Vital AF 1.2 Omi @ 53ml/hr; Flush 111 ml Q 6 hrs. 07/30: per request MD via RN: change formula: changed to glucerna 1.2 @55ml/hr Total free water/day: TF@goal + Flush = 1507ml Kcal 1,584 Protein (gm) 79 Carbohydrates (gm) 151 Fat (gm) 79 Fluid (mL) 1,063 Goal #1 Maintain body weight within +/ -3% of current BWt during LOS. Goal #2 Reach and maintain acceptable chemistry lab values during LOS. Follow-Up By: 07/31/21 Additional Comments f/u: TF formula change to glucerna 1.2, at goal 55ml/hr
--- NOTE | 2021-07-30 19:00 | Electrocardiograph Report ---
[facility] Test Date: 2021-07-28 Test Time: 10:25:53 Pat Name: JEEVAN CORNEJODepartment: [facility] Gender: F [employer] Supervisor: SARTHAK : 1960 Requested By: SUNNY JAQUEZ Order Number: [id number] Reading MD: Sharri Nicholson Measurements Intervals [place] Rate: 125 P: 70 SC: 149 QRS: 26 QRSD: 103 T: 258 QT: 371 QTc: 535 Interpretive Statements Sinus tachycardia LAE, consider biatrial enlargement Nonspecific ST segment abnormality Prolonged QT interval No previous ECG available for comparison Electronically Signed On 07-30-2021 19:00:37 EDT by Sharri Nicholson
[2021-07-30] MEDS ORDERED: INSULIN LISPRO 100 UNIT/ML SUB-Q SCH (22:00)
[2021-07-31] MEDS: SODIUM CHLORIDE 0.9% 1000 ML 1,000 ML IV SCH ×2 (02:59→13:05)
[2021-07-31] MEDS: hydrALAZINE 25 MG TAB PO SCH ×2 (05:49→15:01)
[2021-07-31] MEDS: DOCUSATE SODIUM 100 MG/10 ML ORAL LIQD PO SCH (09:08)
[2021-07-31] MEDS: levETIRAcetam 500 MG TAB PO SCH (09:08)
[2021-07-31] MEDS: cefTRIAXone/NS 2 GM/100 ML 2 GM/100 ML BAG IV SCH (09:08)
[2021-07-31] MEDS: HEPARIN 5,000 UNIT/1 ML VIAL SUB-Q SCH (09:10)
[2021-07-31] MEDS: atenoloL 25 MG TAB PO SCH (09:17)
[2021-07-31] MEDS: amLODIPine 10 MG TAB PO SCH (09:20)
[2021-07-31] MEDS: INSULIN LISPRO 100 UNIT/ML SUB-Q SCH ×2 (09:24→13:01)
[2021-07-31] MEDS ORDERED: INSULIN LISPRO 100 UNIT/ML SUB-Q SCH (12:00)
--- NOTE | 2021-07-31 12:29 | Progress Note ---
Assessment and Plan Assessment and Plan Advance Directives: Yes (Hospice) VTE prophylaxis?: Chemical Plan of care discussed with patient/family: Yes - Patient Problems #Acute encephalopathy - Multifactorial in part related to underlying infection,Dehydration, ketoacidosis -Leukocyte count is#30.8-- 23,800with bandemia -No significant neck stiffness no sign to suggest CHIROPRACTOR SOLE PRACTITIONER infection -EEG more slowing >Left -Need MRI brain # Sepsis -Blood cultures and urine cultures pending -Sepsis secondary to urinary tract infection -Patient started on IV Rocephin # Metabolic acidosis - with hyperglycemia and ketoacidosis -Severe,HCO3#7 -IV bicarb as necessary -Bicarb drip if necessary # Hypokalemia -Being supplemented # Hypernatremia -Half-normal saline for now #Multiple sclerosis and or possible hx of ALS she is currently started on tube feeding -Hold Klonpine and Baclofen -On Keppra ? reduce to 500 Mg Bid, -EEG is noted - MRI brain is pending -With weakness in lower extremities -Physical therapy and Occupational Therapy if possible # Malnutrition -Dietary supplements initiated (8) DVT prophylaxis -On heparin and GI prophylaxis PLAN 1- Treat underlying infection 2- Hydration 3- Correct electrolytes and Glucose abnormality 4- Cut down Keppra to 500 mg Bid 5- EEG is noted 6- Hold Baclofen and Klonpine 7- MRI brain will follow Over all prognosis is quarded Subjective Date of service: 07/31/21 Principal diagnosis: encephalopathy Interval history: status is unchanged she is slightly open eyes , over all still lathergic and limb no movment to stimuli EEG is noted with diffuse slowing worse on right consider MRI ? off baclofen and klonpin Ammonia #37 HCO3#7 Objective - Vital Sign Vital Signs - 12hr 07/31/21 07/31/21 07/31/21 04:34 09:17 09:20 Temperature 97.5 F L Pulse Rate 107 H 100 H 100 H Respiratory 18 Rate Blood Pressure 93/57 110/68 110/68 O2 Sat by Pulse 82 L Oximetry - General Apperance Constitutional: comfortable - EENT EENT: PERRL, mucous membranes moist - Respiratory Respiratory: lungs clear, rhonchi - Cardiovascular Cardiovascular: regular rate, normal S1, normal S2 Extremities: no peripheral edema bilat, no clubbing, cyanosis - Gastrointestinal Gastrointestinal: normoactive bowel sounds - Integumentary Integumentary: normal - Neurologic Cranial nerve examination: PERRL, EOMI, intact Speech examination: other (lathergic) Detailed motor examination: other (limbs all with no movment is noted) - Musculoskeletal Musculoskeletal: other (neck is supple no rigidity is noted) - Laboratory Findings CBC and BMP: 07/30/21 08:24 07/30/21 08:24 Abnormal Lab Findings: Abnormal Labs 07/28/21 07/28/21 07/28/21 10:07 10:28 10:28 WBC 23.8 H RBC 5.43 H Hgb 15.4 H Hct 48.9 H RDW 15.4 H Seg Neuts % (Manual) 83.0 H Lymphocytes % (Manual) 10.0 L Seg Neutrophils # Man 19.8 H Monocytes # (Manual) 1.0 H Sodium 147 H Potassium 3.2 L Chloride 109.2 H Carbon Dioxide 3 L* BUN Glucose 419 H POC Glucose Lactic Acid Alkaline Phosphatase 180 H Total Protein 8.5 H Albumin 3.8 L Urine WBC (Auto) > 182.0 H 07/28/21 07/28/21 07/29/21 10:28 16:59 00:25 WBC RBC Hgb Hct RDW Seg Neuts % (Manual) Lymphocytes % (Manual) Seg Neutrophils # Man Monocytes # (Manual) Sodium Potassium Chloride Carbon Dioxide BUN Glucose POC Glucose 359 H 440 H Lactic Acid 2.90 H* Alkaline Phosphatase Total Protein Albumin Urine WBC (Auto) 07/29/21 07/29/21 07/29/21 03:16 05:46 06:50 WBC RBC Hgb Hct RDW Seg Neuts % (Manual) Lymphocytes % (Manual) Seg Neutrophils # Man Monocytes # (Manual) Sodium 147 H Potassium 3.3 L Chloride 107.2 H Carbon Dioxide 7 L* BUN 23 H Glucose 446 H POC Glucose 531 H 507 H Lactic Acid Alkaline Phosphatase 207 H Total Protein 8.6 H Albumin Urine WBC (Auto) 07/29/21 07/29/21 07/29/21 07:47 10:09 18:03 WBC 30.8 H RBC 5.95 H Hgb 16.7 H Hct 53.2 H RDW 15.6 H Seg Neuts % (Manual) 74.0 H Lymphocytes % (Manual) Seg Neutrophils # Man 22.8 H Monocytes # (Manual) 1.5 H Sodium Potassium Chloride Carbon Dioxide BUN Glucose POC Glucose 319 H 154 H Lactic Acid Alkaline Phosphatase Total Protein Albumin Urine WBC (Auto) 07/29/21 07/30/21 07/30/21 21:19 07:17 08:24 WBC 24.8 H RBC 5.05 H Hgb Hct 43.5 H D RDW Seg Neuts % (Manual) Lymphocytes % (Manual) Seg Neutrophils # Man Monocytes # (Manual) Sodium Potassium Chloride Carbon Dioxide BUN Glucose POC Glucose 108 H 421 H Lactic Acid Alkaline Phosphatase Total Protein Albumin Urine WBC (Auto) 07/30/21 07/30/21 07/30/21 08:24 11:21 13:10 WBC RBC Hgb Hct RDW Seg Neuts % (Manual) Lymphocytes % (Manual) Seg Neutrophils # Man Monocytes # (Manual) Sodium Potassium 2.4 L* D Chloride Carbon Dioxide 7 L* BUN 30 H Glucose 521 H* POC Glucose 531 H 443 H Lactic Acid Alkaline Phosphatase Total Protein Albumin Urine WBC (Auto) 07/30/21 07/30/21 07/31/21 18:08 22:28 06:13 WBC RBC Hgb Hct RDW Seg Neuts % (Manual) Lymphocytes % (Manual) Seg Neutrophils # Man Monocytes # (Manual) Sodium Potassium Chloride Carbon Dioxide BUN Glucose POC Glucose 382 H 321 H 202 H Lactic Acid Alkaline Phosphatase Total Protein Albumin Urine WBC (Auto) 07/31/21 08:13 WBC RBC Hgb Hct RDW Seg Neuts % (Manual) Lymphocytes % (Manual) Seg Neutrophils # Man Monocytes # (Manual) Sodium Potassium Chloride Carbon Dioxide BUN Glucose POC Glucose 320 H Lactic Acid Alkaline Phosphatase Total Protein Albumin Urine WBC (Auto)
--- NOTE | 2021-07-31 12:58 | Discharge Summary ---
Providers - Providers Date of Admission: 07/28/21 18:14 Attending physician: XIN MAN MD 07/28/21 10:17 Speech Therapy Evaluation and Treat [CONS] Urgent Reason For Exam: swallowing difficulties 07/29/21 07:40 Physical Therapy Evaluation and Treat [CONS] Routine Comment: Reason For Exam: Severe debility 07/29/21 10:03 Consult to Dietitian/Nutrition [CONS] Routine Physician Instructions: Assess nutrtn needs, initiate, modify, manage TF Reason For Exam: Reason for Consult: Write/Manage Tube Feeding Reason for Consult: Write/Manage Tube Feeding 07/29/21 14:50 Consult to Case Management [CONS] Routine Services Needed at Discharge: Other Notified:: CM Additional Physician Instructions: hospice 07/29/21 16:07 Consult to Physician [CONS] Routine Comment: Consulting Provider: LISHA ANAND Physician Instructions: Reason For Exam: ALS Primary care physician: BICYCLE MECH[employer]IC Hospitalization Condition: Critical Hospital course: 61 years old female with history of multiple sclerosis and hypertension. According to the EMS that brought the patient from home that patient is a hospice patient. Family informed EMS that patient has been having decreased mentation and unresponsiveness for the last 3 days. They also noticed a foul- smelling urine. Family also reported that patient has been treated for UTI several times in the last few month. Upon arrival to the ER patient is obtunded however she is responding to painful stimuli. Patient vital signs stable with oxygen saturation of 98% on room air. -- Acute encephalopathy Secondary to underlying urinary tract infection and sepsis pt also has recent dx of ALS Leukocyte count is 23,800, cont abx follow cx, consult neurology -- Sepsis Blood cultures and urine cultures pending Sepsis secondary to urinary tract infection Patient started on IV Rocephin --Severe Metabolic acidosis IV bicarb as necessary initiate bicarb pill with Tf -- Hypokalemia Being supplemented --Hypernatremia hypotonic saline for now -- ALS With weakness in lower extremities Physical therapy and Occupational Therapy if possible family requested hospice and DNR -- Malnutrition, severe Dietary supplements initiated -- DVT prophylaxis On heparin and GI prophylaxis --DNR Daily clinical course: 07/29/21: discussed with daughter. Patient recently diagnosed with ALS, patient was recommended for hospice by patient's neurologist. But patient continued to decline and apparently stopped Doing anything. pt's daughter wished to proceed with hospice, CM to arrange, for now cont supportive care and follow clinically. ordered for TF,am labs. Daughter also requested MRI brain and neuro consult - order placed 07/30/2021:Patient is obtumded and minimally responsive to pain. She is very acidotic with anion gap acidosis and hypokalemic with blood glucose running 400s to 500s. She is also currently on D5 infusion as well as tube feeds. Change IV fluids to normal saline and ordered IV potassium supplements. Patient has been under hospice care and is DNR. 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 She is receiving comfort measures. Prognosis is grave. Discussed with the nursing staff and the case work aide. 07/31/2021: Patient remains comatose and poorly responsive to pain. Case informs me that inpatient hospice bed is available for discharge. I called and discussed with the daughter and that she would like her mother to be transferred to inpatient hospice for comfort care. Prognosis remains grave. Disposition: [facility]OSP[facility]ACILITY Exam - Constitutional Vitals: Temp Pulse Resp BP Pulse Ox 97.5 F L 100 H 18 110/68 82 L 07/31/21 04:34 07/31/21 09:20 07/31/21 04:34 07/31/21 09:20 07/31/21 04:34 General appearance: Present: other (Unresponsive and obtunded) - EENT Eyes: Present: PERRL (Eyes closed) - Neck Neck: Present: supple - Respiratory Respiratory effort: labored, other (Gasping breaths) Respiratory: bilateral: wheezing (Bilateral tight expiratory wheezes) - Cardiovascular Rhythm: regular - Extremities Extremities: No edema - Abdominal General gastrointestinal: Present: soft, non-tender, non-distended, normal bowel sounds, other (Tube feeds going via PEG tube) - Integumentary Integumentary: Absent: rash - Neurologic Neurologic: other (Patient is a poorly responsive to pain. Obtunded.) Plan Activity: other (Bedrestpatient is a full comfort care) Diet: other (Currently on tube feeds) Additional Instructions: Patient is being transferred to inpatient hospice for comfort care. Prognosis is grave. Patient is a unresponsive/comatose. Discussed with her daughter and she confirms DNR status and requests inpatient hospice care. Follow up with: PRIMARY CARE, [Primary Care Provider] - 3-5 Days
[2021-07-31 15:02] VITALS: BP 133/81
[2021-07-31] MEDS ORDERED: SIMPLE SYRUP 15 ML FEEDTUBE PRN ×2 (16:15)
[2021-07-31] MEDS ORDERED: LIPASE 10,500/PROTEASE 25,000/AMYLASE 43,750 (UNITS) DR CAP FEEDTUBE PRN (18:00)
[2021-07-31] MEDS ORDERED: SODIUM BICARBONATE 325 MG TAB FEEDTUBE PRN (18:00)
== END 2021-07-31 17:38 | disposition hospice, inpatient (51) | DRG 871 ==
LOC: ED 09:26 → 3A 18:14
PROVIDERS: ADMIT Internal Medicine; ATTEND Internal Medicine
DX: A41.9 Sepsis, unspecified organism (principal); E43 Unspecified severe protein-calorie malnutrition; G93.40 Encephalopathy, unspecified; E87.0 Hyperosmolality and hypernatremia; Z68.1 Body mass index [BMI] 19.9 or less, adult; G12.21 Amyotrophic lateral sclerosis; E87.2 Acidosis; N39.0 Urinary tract infection, site not specified; G35 Multiple sclerosis; I10 Essential (primary) hypertension; E87.6 Hypokalemia; Z66 Do not resuscitate; Z51.5 Encounter for palliative care; Z20.822 Contact with and (suspected) exposure to COVID-19
CPT/HCPCS: 36415; 71045; 74018; 80048; 80053; 80076; 81001; 82140; 82550; 82962; 85007; 85025; 85027; 87040; 93005; 95819; G0378; A9270-GY; J0696; J1644; J1815; J3480; J7030; U0003